=== PATIENT | male | born 1950 | race Caucasian/White ===

== ENCOUNTER 2022-10-31 09:34 | Outpatient (OUT) | payer MEDICARE, SELFPAY ==
[2022-10-31 11:07] LABS: Prostate Specific Antigen Dx 3.96 ng/mL (<=4.00)
== END 2022-10-31 09:35 | disposition home or self-care (01) ==
LOC: LAB 09:39
DX: C61 Malignant neoplasm of prostate (principal)
CPT/HCPCS: 36415; 84153

== ENCOUNTER 2023-09-29 07:24 | Outpatient (OUT) | payer MEDICARE, SELFPAY ==
[2023-09-29 10:53] LABS: Prostate Specific Antigen Dx 3.82 ng/mL (<=4.00)
== END 2023-09-29 07:25 | disposition home or self-care (01) ==
LOC: LAB 07:25
PROVIDERS: PCP Internal Medicine; Visit Provider Urology
DX: C61 Malignant neoplasm of prostate (principal)
CPT/HCPCS: 36415; 84153

== ENCOUNTER 2024-03-09 07:55 | Outpatient (OUT) | payer MEDICARE, SELFPAY ==
[2024-03-09 11:25] LABS: Prostate Specific Antigen Dx <0.13 ng/mL (<=4.00)
== END 2024-03-09 07:56 | disposition home or self-care (01) ==
LOC: LAB 07:58
PROVIDERS: PCP Internal Medicine
DX: C61 Malignant neoplasm of prostate (principal)
CPT/HCPCS: 36415; 84153

== ENCOUNTER 2024-07-05 09:45 | Outpatient (OUT) | payer MEDICARE, SELFPAY ==
--- OUTSIDE RECORDS SUMMARY | 2024-07-05 10:04 | XMS_ITS | CCD ---
Author Organization [facility] CliniSyoh Care Team Providers Care Stock Digger Name Role Phone BRADLEY MILLER Referring Unavailable DHAVAL CHOE Primary Care Unavailable Dhaval Choe DO Primary Care Provider [phone] BRADLEY MILLER Admitting Unavailable BRADLEY MILLER Attending Unavailable DHAVAL CHOE Primary Care Unavailable MISC, DR JENNINGS Admitting Unavailable MISC, DR JENNINGS Attending Unavailable VALONE, DR PUENTES Referring Unavailable VALONE, DR PUENTES Primary Care Unavailable MISC, DR JENNINGS Consulting Unavailable MISC, DR JENNINGS Admitting Unavailable MISC, DR JENNINGS Attending Unavailable VALONE, DR PUENTES Primary Care Unavailable MISC, DR JENNINGS Consulting Unavailable BRADLEY MILLER Referring Unavailable DHAVAL CHOE Primary Care Unavailable JR Dhaval Choe Primary Care Provider MD Bradley Miller Attending Provider DHAVAL CHOE JR. Primary Care UnavailBradley Stern Attending Unavailable Bradley Miller Admitting Unavailable Bradley Miller Attending Unavailable Bradley Miller Admitting Unavailable DHAVAL CHOE JR. Primary Care UnavailJR Dhaval Matthew Primary Care Provider MD [place] Attending Provider MD Bradley Miller Referring Provider JR Dhaval Choe Primary Care Provider MD [place] Attending Provider MD Bradley Miller Referring Provider Bradley Miller Admitting Unavailable Bradley Miller Attending Unavailable Dhaval hCoe Primary Care Unavailable Dhaval Choe Primary Care Unavailable [place] Admitting Unavailable [place] Attending Unavailable [place] Attending Unavailable Bradley Miller Referring Unavailable Dhaval Choe Primary Care Unavailable [place] Admitting Unavailable Dhaval Choe Primary Care Unavailable [place] Admitting Unavailable [place] Attending Unavailable Allergies Allergy Classification Reported Allergen(s) Allergy Type Date of Onset Reaction(s) Facility Shellfish (1 source) Shellfish; Translations: [shellfish] Food Allergy [facility] (1 source) Shellfish Propensity to adverse reactions to drug 5 [facility] (1 source) Shellfish Drug allergy (disorder) 5 [facility] (1 source) Shellfish Drug allergy (disorder) 4 [facility] Medications Current Medications Medication Drug Class(es) Dates Sig (Normalized) Sig (Original) allopurinol 100 mg oral tablet (5 sources) Xanthine Oxidase Inhibitor Start: 11-04-2023 take 100 mg by mouth twice daily Allopurinol Active 100 MG PO Twice daily November 04, 2023 12:00am take 1 tablet by mouth once merlyn y allopurinol (ZYLOPRIM) 100 MG tablet Take 100 mg by mouth daily 0 Suspended aspirin 81 mg chewable tablet (5 sources) Platelet Aggregation Inhibitor, Nonsteroidal Anti-inflammatory Drug Start: 11-04-2023 take 81 mg by mouth once daily Aspirin Active 81 MG PO Daily November 04, 2023 12:00am take 3 tablets by mouth once kaylen ly aspirin 81 MG EC tablet Take 243 mg by mouth daily 0 Suspended atorvastatin 40 mg oral tablet (5 sources) HMG-CoA Reductase Inhibitor Start: 11-04-2023 take 40 mg by mouth once daily Atorvastatin Active 40 MG PO Daily November 04, 2023 12:00am Start: 06-12-2021 atorvastatin ( LIPITOR) 40 MG tablet calcium chloride 0.0014 meq/ ml / potassium chloride 0.004 meq/ml / sodium chloride 0.103 meq/ml / sodium lactate 0.028 meq/ml injectable solution (1 source) Start: 07-18-2021 lactated ringe rs infusion Start: 07-18-2021 lactated ringe rs infusion celecoxib 200 mg oral capsule (5 sources) Nonsteroidal Anti-inflammatory Drug Start: 11-04-2023 take 1 capsule by mouth once daily Celecoxib (Celebrex) 200 mg capsule Active 200 MG PO Daily November 04, 2023 12:00am take 1 capsule by mouth twice da naresh celecoxib (CELEBREX) 200 MG capsule Take 200 mg by mouth 2 times daily 0 Suspended cholecalciferol 0.025 mg oral capsule (5 sources) Vitamin D Start: 11-04-2023 take 25 ug by mouth once daily Cholecalciferol (Vitamin D3) Active 25 MCG PO Daily November 04, 2023 12:00am Cholecalciferol (VITAMIN D) 50 MCG (1999) CAPS capsule Take by mouth 0 Suspended empagliflozin 25 mg oral tablet (4 sources) Sodium-Glucose Cotransporter 2 Inhibitor Start: 11-04-2023 take 1 tablet by mouth once daily Empagliflozin (Jardiance) 25 mg tablet Active 25 MG PO Daily November 04, 2023 12:00am 10 ml lidocaine hydrochloride 10 mg/ml injection (1 source) Antiarrhythmic, Amide Local Anesthetic Start: 07-18-2021 End: 07-18-2021 lidocaine PF 1 % injection 1 mL omeprazole 20 mg delayed release oral capsule (5 sources) Proton Pump Inhibitor Start: 11-04-2023 take 20 mg by mouth once daily Omeprazole Active 20 MG PO Daily November 04, 2023 12:00am take 1 capsule by mouth once kaylen ly omeprazole (PRILOSEC) 20 MG delayed release capsule Take 20 mg by mouth daily 0 Suspended sacubitril 24 mg / valsartan 26 mg oral tablet (4 sources) Angiotensin 2 Receptor Prasanth Start: 11-04-2023 take 1 tablet by mouth twice daily Sacubitril-Valsartan (Entresto) 24-26 mg tablet Active 1 TAB PO Twice daily November 04, 2023 12:00am tamsulosin hydrochloride 0.4 mg oral capsule (1 source) alpha-Adrenergic Prasanth Start: 12-12-2023 take 1 capsule by mouth once daily Tamsulosin (Flomax) 0.4 mg capsule Active 0.4 MG PO Daily December 12, 2023 12:00am Completed/Discontinued Medications Medication Drug Class(es) Dates Sig (Normalized) Sig (Original) ciprofloxacin 500 mg oral tablet (1 source) Quinolone Antimicrobial Start: 06-28-2021 take 1 tablet by mouth twice daily ciprofloxacin (CIPRO) 500 MG tablet Take 500 mg by mouth 2 times daily 0 06/28/2021 Suspended olmesartan medoxomil 40 mg oral tablet (1 source) Angiotensin 2 Receptor Prasanth Start: 06-08-2021 take 1 tablet by mouth once daily olmesartan (BENICAR) 40 MG tablet Take 40 mg by mouth daily 0 06/08/2021 Suspended Problems Problem Classification Problem Date Documented Da te Episodic/Chronic Cancer of prostate (15 sources) Malignant neoplasm of prostate; Translations: [Malignant tumor of prostate] Onset: 05-30-2022 Chronic Results Test Name Value Interpretation Reference Range Facility Automated basophil %Ordered By: [place] on 11-06-2023 Basophils/100 WBC (Bld) 0.7 % Normal . [facility] Comment on above: Performed By: #### B MP, CBC #### [address] Automated basophil countOrde red By: [place] on 11-06-2023 Basophils (Bld) [#/Vol] 0.0 10*3/uL Normal 0.0-0.2 [facility] Comment on above: Result Comment: PERF ORMED BY: [place] [address] PATHOLOGIST RE[employer]IGERATION HOUSEMAN RACHAEL ESQUEDA M.D. Performed By: #### B MP, CBC #### [address] Automated blood monocyte cou ntOrdered By: [place] on 11-06-2023 Monocytes (Bld) [#/Vol] 0.7 10*3/uL Normal 0.0-0.8 [facility] Comment on above: Performed By: #### B MP, CBC #### [address] Automated eosinophil %Ordere d By: [place] on 11-06-2023 Eosinophils/100 WBC (Bld) 2.3 % Normal . [facility] Comment on above: Performed By: #### B MP, CBC #### [address] Automated eosinophil countOr dered By: [place] on 11-06-2023 Eosinophils (Bld) [#/Vol] 0.1 10*3/uL Normal 0.0-0.45 [facility] Comment on above: Performed By: #### B MP, CBC #### [address] Automated monocyte %Ordered By: [place] on 11-06-2023 Monocytes/100 WBC (Bld) 10.8 % Normal . [facility] Comment on above: Performed By: #### B MP, CBC #### [facility] [address] Automated neutrophil %Ordere d By: [place] on 11-06-2023 Neutrophils/100 WBC (Bld) 63.2 % Normal . [facility] Comment on above: Performed By: #### B MP, CBC #### [address] Basic Metabolic Panelon 10-19 GFR/1.73 sq M.predicted MDRD (S/P/Bld) [Vol rate/Area] mL/min/{1.73_m2} Normal [facility] Comment on above: Performed By: #### B MP, CBC #### [address] Calcium [Mass/volume] in Ser um or PlasmaOrdered By: [place] on 11-06-2023 Calcium [Mass/Vol] 8.8 mg/dL Normal 8.6-10.3 [facility] Comment on above: Result Comment: PERF ORMED BY: [place] [address] PATHOLOGIST RE[employer]IGERATION HOUSEMAN RACHAEL ESQUEDA M.D. Performed By: #### B MP, CBC #### [address] Carbon dioxide, total [Moles /volume] in Serum or PlasmaOrdered By: [place] on 11-06-2023 CO2 [Moles/Vol] 27.0 mmol/L Normal 21.0-31.0 [facility] Comment on above: Performed By: #### B MP, CBC #### [facility] [address] [place] [address] Chloride [Moles/volume] in S khanh or PlasmaOrdered By: [place] on 11-06-2023 Chloride [Moles/Vol] 107 mmol/L Normal 98-107 [facility] Comment on above: Performed By: #### B MP, CBC #### [address] Complete Blood Count Auto Di ffon 11-06-2023 Mean Corpuscular HGB Conc 34.1 g/dL Normal 32.5-35.6 [facility] Comment on above: Performed By: #### B MP, CBC #### [address] NRBC% 0.0 /100{WBC} Normal 0-0.5 [facility] Comment on above: Performed By: #### B MP, CBC #### [address] Creatinine [Mass/volume] in Serum or PlasmaOrdered By: [place] on 11-06-2023 Creatinine [Mass/Vol] 1.16 mg/dL Normal 0.70-1.30 [facility] Comment on above: Performed By: #### B MP, CBC #### [address] ECG 12 lead ECGon 11-06-2023 ECG 12 lead ECG [facility] [place] [address] Electrocardiograph Report Signed Patient: Rocky Mcmanus MR#: [id number] : 1950 Acct:[id number] Age/Sex: 73 / M ADM Date: 11/06/23 Loc: PS Room: Type: [facility] Attending Dr: Pretty Key MD Ordering Provider: [place] MD Date of Service: 11/06/23 ECG/ECG 12 lead ECG: surgery 11/18/23 Copies to: Test Reason : Blood Pressure : */* mmHG Vent. Rate : 50 BPM Atrial Rate : 50 BPM P-R Int : 178 ms QRS Dur : 86 ms QT Int : 432 ms P-R-T Axes : 67 59 73 degrees QTcB Int : 393 ms Sinus bradycardia Nonspecific T wave abnormality Abnormal ECG No previous ECGs available Confirmed by LORELEI ALLEN [id number] on 11/06/2023 7:02:40 PM Referred By: Electronically Signed By: KAILEY MOSELEY MD [facility] Transcribed By: MUS Signed By Abhay Moseley MD 11/06/23 190 Normal [facility] Erythrocyte distribution wid th [Ratio] by Automated countOrdered By: [place] on 11-06-2023 Erythrocyte distribution width (RBC) [Ratio] 14.2 % Normal 12.0-14.8 [facility] Comment on above: Performed By: #### B MP, CBC #### [facility] [address] [place] [address] [place] Erythrocytes [#/volume] in B lood by Automated countOrdered By: [place] on 11-06-2023 RBC (Bld) [#/Vol] 4.47 10*6/uL Normal 3.90-5.60 [facility] Comment on above: Performed By: #### B MP, CBC #### [address] Glucose [Mass/volume] in Ser um or PlasmaOrdered By: [place] on 11-06-2023 Glucose [Mass/Vol] 75 mg/dL Normal 70-100 [facility] Comment on above: ADA recommended refe rence rangeRandom Glucose Reference Range is dependent on time and content of last meal. Glucose of more than 200 mg/dL in a nonstressed, ambulatory subject supports the diagnosis of Diabetes Mellitus. Result Comment: [place] om Glucose Reference Range is dependent on time and content of last meal. Glucose of more than 200 mg/dL in a nonstressed, ambulatory subject supports the diagnosis of Diabetes Mellitus. ADA recommended reference range Performed By: #### B MP, CBC #### [address] [place] [address] [place] Hematocrit [Volume Fraction] of Blood by Automated countOrdered By: [place] on 11-06-2023 Hematocrit (Bld) [Volume fraction] 43.4 % Normal 38.8-50.0 [facility] Comment on above: Performed By: #### B MP, CBC #### [address] Hemoglobin [Mass/volume] in BloodOrdered By: Azulleemily Key on 11-06-2023 Hemoglobin (Bld) [Mass/Vol] 14.8 g/dL Normal 13.0-17.0 [facility] Comment on above: Performed By: #### B MP, CBC #### [address] Leukocytes [#/volume] correc harvey for nucleated erythrocytes in Blood by Automated counOrdered By: [place] on 11-06-2023 WBC corrected for nucl RBC Auto (Bld) [#/Vol] 6.5 10*3/uL 4.1-10.5 [facility] Leukocytes [#/volume] in Blo od by Automated countOrdered By: [place] on 11-06-2023 WBC (Bld) [#/Vol] 6.5 10*3/uL Normal 4.1-10.5 [facility] Comment on above: Performed By: #### B MP, CBC #### [facility] [address] [place] [address] [place] Lymphocytes [#/volume] in Bl ood by Automated countOrdered By: Azulleemily Key on 11-06-2023 Lymphocytes (Bld) [#/Vol] 1.5 10*3/uL Normal 1.00-4.8 [facility] Comment on above: Performed By: #### B MP, CBC #### [place] [address] [place] Lymphocytes/100 leukocytes i n Blood by Automated countOrdered By: [place] on 11-06-2023 Lymphocytes/100 WBC (Bld) 23.0 % Normal . [facility] Comment on above: Performed By: #### B MP, CBC #### [facility] [address] [place] [address] MCH [Entitic mass] by Automa harvey countOrdered By: [place] on 11-06-2023 MCH (RBC) [Entitic mass] 33.1 pg Normal 27.5-35.2 [facility] Comment on above: Performed By: #### B MP, CBC #### [facility] [address] [place] [address] MCHC Auto (RBC) [Mass/Vol]Or dered By: [place] on 11-06-2023 MCHC (RBC) [Mass/Vol] 34.1 g/dL 32.5-35.6 [facility] MCV [Entitic volume] by Auto mated countOrdered By: [place] on 11-06-2023 MCV (RBC) [Entitic vol] 97.0 fL Normal 83.5-101 [facility] Comment on above: Performed By: #### B MP, CBC #### [facility] [address] [place] [address] Neutrophils [#/volume] in Bl ood by Automated countOrdered By: [place] on 11-06-2023 Neutrophils (Bld) [#/Vol] 4.1 10*3/uL Normal 1.8-7.7 [facility] Comment on above: Performed By: #### B MP, CBC #### [facility] [address] [place] [address] No Panel InformationOrdered By: [place] on 11-06-2023 Estimated GFR (CKD-EPI) > 60.0 mL/Min [facility] Creatinine Clearance (Chem N/A [facility] Nucleated erythrocytes [Pres ence] in Blood by Automated countOrdered By: [place] on 11-06-2023 Nucleated RBC Auto Ql (Bld) 0.0 /100{WBC} 0-0.5 [facility] Platelet mean volume [Entiti c volume] in Blood by Automated countOrdered By: [place] on 11-06-2023 Platelet mean volume (Bld) [Entitic vol] 7.8 fL Normal 6.6-10.1 [facility] Comment on above: Performed By: #### B MP, CBC #### [facility] [address] Platelets [#/volume] in Bloo d by Automated countOrdered By: Azulleemily Key on 11-06-2023 Platelets (Bld) [#/Vol] 219 10*3/uL Normal 150-450 [facility] Comment on above: Performed By: #### B MP, CBC #### [place] [address] [place] Potassium [Moles/volume] in Serum or PlasmaOrdered By: Azulleena hSahid on 11-06-2023 Potassium [Moles/Vol] 4.3 mmol/L Normal 3.5-5.1 [facility] Comment on above: Performed By: #### B MP, CBC #### [address] Serum or plasma anion gap de terminationOrdered By: Azulleena Shahid on 11-06-2023 Anion gap [Moles/Vol] 9.3 mmol/L Normal 6.0-15.0 [facility] Comment on above: Performed By: #### B MP, CBC #### [place] [address] [place] Sodium [Moles/volume] in Ser um or PlasmaOrdered By: Azulleemily Key on 11-06-2023 Sodium [Moles/Vol] 139 mmol/L Normal 136-145 [facility] Comment on above: Performed By: #### B MP, CBC #### [place] [address] [place] Urea nitrogen [Mass/volume] in Serum or PlasmaOrdered By: Norleena Shahid on 11-06-2023 Urea nitrogen [Mass/Vol] 16 mg/dL Normal 7-25 [facility] Comment on above: Performed By: #### B MP, CBC #### [address] [address] [facility] Discharge Instructionson Discharge Instructions [id number]#1. 00[facility] - AP Resultson 4 Lab - AP Results [id number]# 1.00[facility] - [facility] Results [id number]# 1.00[facility] - AP Resultson 4 Lab - AP Results [id number]# 1.00[facility] Discharge Instructionson Discharge Instructions [id number]# 1.00[facility] Coding Summaryon 08-07-2023 Coding Summary HTMLBase 64 QarlexxeGMq6lEx+PGhl YWQ+BO7FLOWfB82upOXv lR2zU2ZXKZiZXitfXZQX GMyDSxKnpxRnRW8xcTUr ZXJu IC8+ZO9eVGHzWzstlAWq e9O7oFW8W38jwd7cIMut lDN9ESEzYnRtlfori9gr hZt9IVvyKqliLpTu AZZfkA63MKO1iQ99Oh26 lKEnsEWbg4llsJz2FxRh SEWwKWS6dPxjBBawz5Vm UATpB66vhEFnl2T2 IGNvbGxhcHNlOyBlbXB0 yD8bQNomvpsds4oxtseq Eog2ey66oSTzd4Y6sDG3 X2LmhlX7ADOecJCp TlrmnGMKsX3rpbzfe1qm ezqvGyIvWCTfQHa5VCe4 YPYkbCbnKxMjIC65RVS8 DMPruvMlX6IlJURe zVegXrM3r4Y5Zx6FD8XM YqytK3TNZFEEWGcsiSO+ JM02nx34I8FtCdchTfa6 MJIpGUR5uFW3gU5r RIEmDNtnn4A3kUD9X5Rd fkEbxr3ym2xuUKBnANck Y84hyJNgu7L0PMYokVZ8 WWOgfOlrFpFdcW47 Oyc+XNCciKppd8FdOgwg y5pgf8myiXn7GroaZRFa nkOuhRlvNOF0v5FcBy3w KMOxxFC0yDD4zN7j CjMbGiZ9DQibS413NsSh pXYuNchaG48sW6TmvQE+ MEPgOkr3FOQanCxeCO4x L9TqLFUyjhmexRLe kXrnHR9vJMPwwgmnJSRd uV1aKUVuI6t3ZrQpHfR1 XGrxP5KkMKIahtykUi59 kW8jBdIgVnT3LHez O3VbwaC8THWpuHFqJXaj LHD9T54yu0C4XPZqIJTj SRX6uPW1wC1fmXsifctg bGVmdDsgdmVydGlj UYyaRIqnX438MNNuvNhv PkNvZGluZyBEYXRlOiAg MDQvMTgvMjAyNDwvdGQ+ BDZdYYO2nOhnDTTt bPCbQPfzLg0hxYdfcBtp KL1jZNYusgwvUDNvlO6l XBOdnXHhnDkoLY2hBZAi dzsjn912HnAgTEY9 UFNpmKHeF3KndT7gFqDb YIWwGBMwW6KkvGFoQExl N277QPqqRlE4XHAwfkJu Y4DeGDInnNqzSoS0 m1V0Wx0Sh5UdyghbV4Qy mHBiZjOoZgxqKYl5U5Dj PjwvdHI+PW02ZZKdGP56 YUk0NTX7jKciLNfu UJIlY2EjzU1zVoUgVHNk ZGRkOyc+PHRhYmxlIHdp ZHRoPScxMDAlJyBzdHls PJ5eNv3uBBKlGUCx tMhwpZLoBsPjo9mrLWWv HYqxCA1tkMvdE5JeuUU4 ABIbo6b1Dp69I61hE2Qd dXA+JUDihSX2sTN0 mD3fOnWhCzD7ATcsK385 TfNdiFOrPoiue8itm9wc sKa0WlQ3LIZjwkJidSer SIX0x7ZeYo47P43o IHdpZHRoPSIxNSUiIHZh uSkgnh4aeA9vVk0+PGNv mUO0yEK9jV4zPpWsDbB2 PPmxG551AfUzbFHa Rjxib8vpu7ploUt4XmTi BRPsizFarUtiQWC5t6Yp Ja70C5LimZgps2YcGwl0 ea48xLOlb7T0xJH2 C9RhDBYddylycPTqbYwv KB8xARJoqxnoXYHovQ4b XYQxU3v3EuUsMmC5FBer H5GbvlY2SIJpyDMy NNVslPCAcM7dzzmvw7gp ktzbCpKfXZOgQRa0QOv9 KRLwaBjcJeFqZPA0WvR4 XOV8wLLnvS1drVto ehizmC6vHxs+HXB1nLVl uOVMKP5aWuuhlMD+PHRk EOU4uCaqBXvfASWluU9t VQBhY2x3ViLmJyI3 PVjgZ5XisvL0RYRfyNVr UAGmjECPpT0amufgy5yf ogxsTzMxDFQzAXs8AQv4 LWFsaWduOiBsZWZ0 TbB1ACZ5wEWsfT2uaZfy uhciwE0sPgp+QmlydGgg QKZ3TSw4Q5NgPzj0UCOw fGbyHE8wpKTxUEle Yb5geDanoAjlWT4fTKMb jemrd018CmFql8bxCPBl rTJqJYypMEJ7E87fi6M0 BIQeCHRiAVX7nQC8 jB2ocRejxhucsYOvsLnv whVumTphDWckPRgvY669 XSAodAebEgRfHQp9B1Zy Hlw8VYQyzHzmZV5r hYMxYLfeJi9jxAynqEdw SI2oVZAayvxha825ZtGb q9bsHINwhSUtZPdtLUU6 Y24ux6F1HFFqDXOc JKL6lON1pN6poCqkxfhj bGVmdDsgdmVydGljYWwt VSpqT405NFQrpTzxQcKh jSs7C4QjUzu8FEMr dGrzLW6atWJzUIgyPp9y gKngaYsmNT8vQWFaccoc c670BpMjd1vwHUMqjAKg KNjiZJB8O14ct4F2 SLJzIOKrDKP4mJK4aF7l bGlnbjogbGVmdDsgdmVy fIwhNUhaIYlzF548HNBm cDsnPlBhdGllbnQg SOmlJBg8I8EtHyzolEG+ LQ93OCDkZK83dUOyrVCn b6tnbIr1ExAbJRFtSSK9 xRldFWadv5KqYEZr U54jrXInz5Y7XLAseHna mGXaHwIzfPG7zP9fPGmz zevcq1hvsnkuOrcbc3wa cq34iZ99Y27eYMsn ZHRoPSIzMCUiIHZhbGln dq1teC5pFh5+PGNvbCB3 zJV2kM5eXATiIzD5QIwr X282AhFdzOWjIndd k9sjt1tliZk3DyV5HHXd iySlxDpdQQM8v8OlXo81 Z45yTSrfYDOyOBCjLINy PXPeqUsfcs1taJ9q Ii8+KPZczCQ2jTH9oB8h GiZbTvO1TOxtT900BlCr gYSrZltiB80aJ3KgdQG+ LBYdSyu2FHSrzPww JO7cfWMxBVdjQb0kIII5 AgOoCbBjMEdpJ5OiWJJz jfwosakgmFZ5OEUpYZKp bV62Je8rdUveRJNi wDPIiE2srgfud4iwbffb AaQeAFFhBTg3TXi3SVNd xCeuChWlVAX5KhL3JAM0 gHTsgC8mtFzxyfmi tD4wQ0DrZTWvheruZb65 hO0gBnFeCiI3LHivDtd+ TUFHRVJTLCBTVEVQSEVO QLRDU6CNUXmcsTL+ SLNjKWK4eBywQTphHVQf cL1jMJZxJ9b0RgNoDgH6 EFkpD3CrUNQxlzqnRu48 gW8mRkPeAuF1DWrg X7MrjhK7OSOoeMTuHIka FYV1C21qi8R0OIVfLCVi QLG8aVX8hQ4ztDnutnvn bGVmdDsgdmVydGlj XLymYJxtJ778AWSbqJsy UyDmLiC3YwB8ENp1Z1Kn Iol9ETYyuPvxGR4dnIZv JZezOk4gxZqgnPyz XS6bFUSrfujcQGWsaG3a FODkwZFuoHcmMG0zMVYa suvqy160FoUzWVY4ORVr mVHlR2QwcA7zSwEk SMNkSBRlI6JlzPRgSNzl W023ONuzCdE7LEYzixJj P4TcCCMdzWicKiX1l6B8 Th40BRGZTPZjeeld dGQ+HAUyQQV0kBymQEje VUQdaD7mUYKeS8b2RaPc KqT3XTgcO3IiYSAphxzf Bj57xH9aMyYyBqJ2 WDmrV0JreeQ1PUOatVDl HIaxHMI4S02yl4M7KUIj GJZmEQP0rFH5cB3klKbe bjogbGVmdDsgdmVy nGfmUZdoUGzsI234ELCm aFepGn6VQML1T0VgOoh8 LPHkgRafJV7ybIZyDNpq Za6olFnfrEubPD4d WQEwdzudVFLzwJ6eHICk wVZdkRcjJI5uZZSsnvlp v636NqTtTTZ9RMAprITm V3SthD9lVzYpDGIw PIAbN5DsuIXuFAyxI180 DNdwEtO0FTCeloQfH4Ce KZOigSgrUsU7u6R5Ms7C FNjbG7JuW8KuxRtc dGQ+YR05sy69B7JqGqzf Lzc4WTWzBHD0yTK5zD1z NJVgDCxhj9U2lWV8C8Jm qoTzto6wn6ztNWBt JOhvA46zrNVmr8N6CEHs wLH4OKIvaRkeApHiqV80 Oyc+RYLbtCjex8TuLsxx x4avz1rhdYq8KwBs QGBlhfYrfWqbWRY0j5Tg Lz30G49rRHfxCPHpXDQj JWSnSOBkwWjhpz1omL7e Ii8+WHUubAY3vHD6 iU3uYqFmQuY8FZctU200 OpWiiEWnPrcvs5tga1on vSq2NpFwGVMqdsPzcMel YBH1q9AlCj87J5Eb xWojo3JmEqf6jp72qSAp u3U3uGF5U8MoNXJdkgum bSKclKvkGR3qOORhklkq KHPvmC3rXJSwB3c6 UtFhHwB9ZJhbZ6TamkU3 BSFhrBLfTDCktCTTwB0q eqjde8yvpyjkUzYcSJCs LQj6UNt1DCKrdSos UkZaZDW3GpW8LPQ1mZUc nR9kuIewvqnclS3kZmx+ PRf7p1usoJUiNF3vhIG4 BW85JX29aOAoa2T5 nXO9Y7ClDTVgafwskqek pCX8MFVnVFJbpZ00Vc2k oAlwKz2cJRLoNQY6UOPs vVCtN4EazN6aCmPq CHDwGFWbT2GbrSWnOMam N852CPurQoE4SRQwnbEd F5SyMEUxzCmuCkX6u6T1 Jf6JFX21CW41GR00 bBUaa1U7uQI9C5AtAQMy rbuketlwiZJ8JLPxWRYl dU51Gv4obLubEl0kBEGy BOF1PPDklJFgA8Xv hB5vSjDaCHElCTXiU2Oh oHXwPZndG631BIztGfQ1 WYZclsAfL4BoKMHgmLdz JwJ7r6W5Ae0SQt34 JE44UQ34rPLdv9H1jVV7 I9XzTJYfbymyjvqyyTQ3 AIUvPBWktW35Er0kwDte Ap2pPZMxXKZ4HTGk gHLoR1AqoJ5mNrHcZUZx RAPaK4QhvDRgDSflT989 GGoxJiQ2ECSsqlTyC5Em IRTqyAcfYkP9u8D8 Xd8OKWwsmtq8Y0IxOhkm dHI+GP30VXJgYD47yTSz wKYfm4hbvUg0VoJsDULg LGS2bOywPXmap8Jb ZXI (more content not included)... [facility] - [facility] - AP Results [id number]# 1.00[facility]IFF [facility] Operative Report - Surgeon/P hysicianon 08-05-2023 Operative Report - Surgeon/Physician [id number]#1. 00[facility] Operative Report - Surgeon/Physician [id number]#1. 00[facility] Provider Orderson 08-05-2023 Provider Orders [id number]#1. 00[facility] Anesthesia Noteon 08-01-2023 Anesthesia Note [id number]# 1.00[facility] Consent Formson 08-01-2023 Consent Forms [id number]#1. 00[facility] PostAnesthesia Noteon 2023 PostAnesthesia Note [id number]# 1.00[facility] Inpatient Patient Summaryon 07-31-2023 Inpatient [place] [address] Patient Discharge Instructions Name: ROCKY MCMANUS : 1950 Patient Address: [address] [place] [address] Primary Care Provider: Name: DHAVAL CHOE JR. After you are discharged if you find you have any questions, please, call [phone] ext [phone] to speak to a nurse. Discharge Diagnosis: Prescription Information: If you have been given a prescription for narcotics, seek immediate medical attention if you have any difficulty breathing or any sudden status changes such as confusion and sleepiness. If you or anyone you know is experiencing suicidal thoughts, mental health, alcohol and/or drug addiction problems; contact the [facility] 11/11 Crisis Hotline -Text 4HLKK zn [id number]. If you received any narcotics, sedation, or any other medication that causes drowsiness for the next 24 hours, unless otherwise directed: ? Do not drive a car. ? Do not operate machinery such as power tools, lawn mowers, drills, sewing machines, or stoves ? Avoid alcoholic beverages and drugs for allergies, nerves, or sleep ? Do not make important personal or business decisions or sign any legal documents [facility] would like to thank you for allowing us to assist you with your healthcare needs. The following includes patient education materials and information regarding your injury/illness. ROCKY MCMANUS has been given the following list of follow-up instructions, prescriptions, and patient education materials: Follow-up Instructions Medications During the course of your visit, your medication list was updated with the most current information. The details of those changes are reflected below: Medications to Continue That Have Not Changed Other Medications allopurinol (allopurinol 100 mg oral tablet) 1 tab(s) Oral (given by mouth) 2 times a day (scheduled). aspirin (aspirin 81 mg oral delayed release tablet) 1 tab(s) Oral (given by mouth) every day. atorvastatin (atorvastatin 40 mg oral tablet) 1 tab(s) Oral (given by mouth) every day. celecoxib (celecoxib 200 mg oral capsule) 1 cap(s) Oral (given by mouth) every day. ciprofloxacin (ciprofloxacin 500 mg oral tablet) 1 tab(s) Oral (given by mouth) every day. for use the day before, the day of, and the day after procedure. empagliflozin (Jardiance 25 mg oral tablet) 0.5 tab(s) Oral (given by mouth) every day. fluticasone nasal (Flonase Allergy Relief 50 mcg/inh nasal spray) 1 puff(s) Nostril-Both 2 times a day (scheduled) as needed allergy symptoms. omeprazole (omeprazole 20 mg oral delayed release capsule) 1 cap(s) Oral (given by mouth) every day. sacubitril-valsartan (Entresto 49 mg-51 mg oral tablet) 1 tab(s) Oral (given by mouth) 2 times a day (scheduled). It is important to always keep an active list of medications available so that you can share with other providers and manage your medications appropriately. As an additional courtesy, we are also providing you with your final active medications list that you can keep with you. allopurinol (allopurinol 100 mg oral tablet) 1 tab(s) Oral (given by mouth) 2 times a day (scheduled). aspirin (aspirin 81 mg oral delayed release tablet) 1 tab(s) Oral (given by mouth) every day. atorvastatin (atorvastatin 40 mg oral tablet) 1 tab(s) Oral (given by mouth) every day. celecoxib (celecoxib 200 mg oral capsule) 1 cap(s) Oral (given by mouth) every day. ciprofloxacin (ciprofloxacin 500 mg oral tablet) 1 tab(s) Oral (given by mouth) every day. for use the day before, the day of, and the day after procedure. empagliflozin (Jardiance 25 mg oral tablet) 0.5 tab(s) Oral (given by mouth) every day. fluticasone nasal (Flonase Allergy Relief 50 mcg/inh nasal spray) 1 puff(s) Nostril-Both 2 times a day (scheduled) as needed allergy symptoms. omeprazole (omeprazole 20 mg oral delayed release capsule) 1 cap(s) Oral (given by mouth) every day. sacubitril-valsartan (Entresto 49 mg-51 mg oral tablet) 1 tab(s) Oral (given by mouth) 2 times a day (scheduled). Take only the medications listed above. Contact your doctor prior to taking any medications not on this list. Diet & Activity Patient Activity Level: Patient Diet: Patient Activity Restrictions: Comment: Patient education materials, if any, will display below Viruses or Bacteria What?s got you sick? Antibiotics only treat bacterial infections. Viral illnesses cannot be treated with antibiotics. When an antibiotic is not prescribed, ask your healthcare professional for tips on how to relieve symptoms and feel better. Usual Cause Illness Viruses Bacteria Antibiotic Needed Cold/Runny Nose NO Bronchitis/Chest Cold (in otherwise healthy children and adults) NO Whooping Cough Yes Flu NO Strep Throat Yes Sore Throat (except strep) NO Fluid in the middle ear (otitis (more content not included)... [facility] 07-31-2023 L Specimen: [id number] Received: 08/01/23 Status: [facility] Num: [id number] Spec Type: Surgical Subm Dr: Bradley Miller MD Tissues: A Prostate - Needle Biopsy (RIGHT BASE LATERAL PROSTATE) B Prostate - Needle Biopsy (RIGHT BAS MEDIAL PROSTATE) C Prostate - Needle Biopsy (RIGHT MID LATERAL PROSTATE) D Prostate - Needle Biopsy (RIGHT MID MEDIAL PROSTATE) E Prostate - Needle Biopsy (RIGHT APEX LATERAL PROSTATE) F Prostate - Needle Biopsy (RIGHT APEX MEDIAL PROSTATE) G Prostate - Needle Biopsy (LEFT BASE LATERAL PROSTATE) H Prostate - Needle Biopsy (LEFT BASE MEDIAL PROSTATE) I Prostate - Needle Biopsy (LEFT MID LATERAL PROSTATE) J Prostate - Needle Biopsy (LEFT MID MEDIAL PROSTATE) K Prostate - Needle Biopsy (LEFT APEX LATERAL PROSTATE) L Prostate - Needle Biopsy (LEFT APEX MEDIAL PROSTATE) M Prostate - Needle Biopsy (AREA OF INTREST PROSTATE BX) Procedures: HE/26, Gross/Micro L4/13, PIN Cocktail/6 Age/ Patient Sex Location Account Attending Physician Rocky Mcmanus 73/M [facility] [id number] Bradley Miller MD SPEC NUM: [id number] RECD: 08/01/23 STATUS: [facility] [place] NUM: [id number] IRIS: 07/31/[address] [facility] [address]: Bradley Miller MD ENTERED: 08/01/23 [facility] DR: Tara Tam SPEC TYPE: Surgical DEPT: [facility] [place] ORDERED: HE/26, Gross/Micro L4/13, PIN Cocktail/6 ORDERED: HE/26, Gross/Micro L4/13, PIN Cocktail/6, USS/20 Supplemental Report Addendum 1 Entered: 08/20/23 Please see attached risk assessment report. Addendum Signed (signature on file) Pako Lentz MD 08/20/23 1547 Specimen: [id number] Received: 08/01/23 Status: [facility] [place] Num: [id number] Spec Type: Surgical Subm Dr: Bradley Miller MD Tissues: A Prostate - Needle Biopsy (RIGHT BASE LATERAL PROSTATE) B Prostate - Needle Biopsy (RIGHT BAS MEDIAL PROSTATE) C Prostate - Needle Biopsy (RIGHT MID LATERAL PROSTATE) D Prostate - Needle Biopsy (RIGHT MID MEDIAL PROSTATE) E Prostate - Needle Biopsy (RIGHT APEX LATERAL PROSTATE) F Prostate - Needle Biopsy (RIGHT APEX MEDIAL PROSTATE) G Prostate - Needle Biopsy (LEFT BASE LATERAL PROSTATE) H Prostate - Needle Biopsy (LEFT BASE MEDIAL PROSTATE) I Prostate - Needle Biopsy (LEFT MID LATERAL PROSTATE) J Prostate - Needle Biopsy (LEFT MID MEDIAL PROSTATE) K Prostate - Needle Biopsy (LEFT APEX LATERAL PROSTATE) L Prostate - Needle Biopsy (LEFT APEX MEDIAL PROSTATE) M Prostate - Needle Biopsy (AREA OF INTREST PROSTATE BX) Procedures: HE/, Gross/Micro L4/13, PIN Cocktail/6 Patient: Rocky Mcmanus [id number] (Continued) Specimen: [id number] Received: 08/01/23 (Continued) Signed (signature on file) Pako Lentz MD 08/06/23 1706 Specimen: [id number] Received: 08/01/23 Status: [facility] Num: [id number] Spec Type: Surgical Subm Dr: Bradley Miller MD Tissues: A Prostate - Needle Biopsy (RIGHT BASE LATERAL PROSTATE) B Prostate - Needle Biopsy (RIGHT BAS MEDIAL PROSTATE) C Prostate - Needle Biopsy (RIGHT MID LATERAL PROSTATE) D Prostate - Needle Biopsy (RIGHT MID MEDIAL PROSTATE) E Prostate - Needle Biopsy (RIGHT APEX LATERAL PROSTATE) F Prostate - Needle Biopsy (RIGHT APEX MEDIAL PROSTATE) G Prostate - Needle Biopsy (LEFT BASE LATERAL PROSTATE) H Prostate - Needle Biopsy (LEFT BASE MEDIAL PROSTATE) I Prostate - Needle Biopsy (LEFT MID LATERAL PROSTATE) J Prostate - Needle Biopsy (LEFT MID MEDIAL PROSTATE) K Prostate - Needle Biopsy (LEFT APEX LATERAL PROSTATE) L Prostate - Needle Biopsy (LEFT APEX MEDIAL PROSTATE) M Prostate - Needle Biopsy (AREA OF INTREST PROSTATE BX) Procedures: , Gross/Micro , PIN Cocktail/6 Patient: Rocky Mcmanus [id number] (Continued) Specimen: [id number] Received: 08/01/23-123 (Continued) Pathological Diagnosis Prostate adenocarcinoma, Kaci score 3+4=7, involving 4 out of the 13 biopsies (overall 7% involvement), as follows: A. Prostate, , Biopsy: Benign Prostate Tissue. B. Prostate, , Biopsy: Prostate Adenocarcinoma. Kaci Socre: 3+4=7 (Pattern 4: 10%) Tumor Involves 20% Of The Biopsy Volume. ?Confirmed with PIN immunostain. C. Prostate, , Biopsy: Benign Prostate Tissue. D. Prostate, , Bi (more content not included)... Normal [facility] MAGR Intraoperative Recordon 07-31-2023 MAGR Intraoperative Record MAGR Intra-Op Record Summary Primary Physician: Bradley Miller MD Finalized Date/Time: 07/31/23 12:34:22 Pt. Name: ROCKY MCMANUS /Sex: 1950 MALE Med Rec #: [id number] Physician: Bradley Miller MD Financial #: [id number] Pt. Type: D Room/Bed: / Admit/Disch: 07/31/23 08:25:45 - Institution: Case Times MAGR Entry 1 Patient In Room Time 07/31/23 11:33:00 Out Room Time 07/31/23 11:55:00 Anesthesia Start Time 07/31/23 11:32:00 Stop Time 07/31/23 11:57:00 Surgery Start Time 07/31/23 11:45:00 Stop Time 07/31/23 11:50:00 Last Modified By: Dana Mejias RN 07/31/23 12:17:00 Case Attendance MAGR Entry 1 Entry 2 Entry 3 Case Attendee Bradley Miller MD, Robert M MD Kokinda, Diane RN Role Performed Surgeon - Primary Anesthesiologist of Porter Sample Case Record Time In 07/31/23 11:43:00 07/31/23 11:33:00 07/31/23 11:33:00 Time Out 07/31/23 11:50:00 07/31/23 11:55:00 07/31/23 11:55:00 Procedure Biopsy Prostate Biopsy Prostate Biopsy Prostate Last Modified By: Dana Mejias RN, Diane RN Kokinda, Diane RN 07/31/23 12:04:37 07/31/23 12:04:37 07/31/23 12:04:37 Entry 4 Entry 5 Case Attendee Yoly Toure CAR PINCHER Janki Howard CAR PINCHER Role Performed Scrub Personnel Liquor Rectifier Time In 07/31/23 11:33:00 07/31/23 11:33:00 Time Out 07/31/23 11:55:00 07/31/23 11:55:00 Procedure Biopsy Prostate Biopsy Prostate Last Modified By: Dana Mejias RN, Diane RN 07/31/23 12:04:37 07/31/23 12:04:37 General Comments: HEBERT GONSALES REP Surgical Procedures MAGR Pre-Care Text: A.20 Verifies operative procedure, surgical site, and laterality Im.150 Develops individualized plan of care Entry 1 Procedure Biopsy Prostate Primary Procedure Yes Primary Surgeon Bradley Miller MD Surgeon Comment FUSION PROSTATE BIOPSY Start 07/31/23 11:45:00 Stop 07/31/23 11:50:00 Anesthesia Type MAC Surgical Service Urology Wound Class Clean-Contaminated Technique Details Closure Technique N/A Entire procedure No was performed via laparoscope or robotic assistance Last Modified By: Dana Mejias RN 07/31/23 12:04:47 Post-Care Text: O.730 The patient's care is consistent with the individualized perioperative plan of care General Case Data MAGR Pre-Care Text: A.350.1 Classifies surgical wound Entry 1 Case Information OR MAGR OR 05 Case Level Level 3 Wound Class Clean-Contaminated Specialty Urology ASA Class 2 Diagnosis Preop Diagnosis PROSTATE CANCER Postop Same As Preop Yes Postop Diagnosis PROSTATE CANCER Blunt or No Is the procedure No penetrating injury considered occured prior to Emergent/Urgent? the start of the procedure: Last Modified By: Dana Mejias RN 07/31/23 12:05:03 Post-Care Text: O.760 Patient receives consistent and comparable care regardless of the setting Time Out MAGR Entry 1 Procedure(s) Biopsy Prostate Time Out Checklist Verifications Team Introductions Yes Confirmed Identity, Yes Completed Procedure, Incision Site, and Consent(s) Presence of Yes Site Verification, Yes Necessary Site Marking, Site Procedural Marking Equipment, Devices, Alternative, and/or and Implants Site Marking Verified Exception in Accordance with Facility Policy Anesthesia Review Antibiotic Received Yes All Anesthesia Yes Within an Concerns Addressed Appropriate Time Interval Prior to Surgical Incision Surgeon Review Anticipated Blood Yes Expected Case Yes Loss Risk Addressed Duration Addressed Critical and Yes Non-Routine Steps to be Performed Addressed Nurse Review Equipment Yes Fire Risk Yes Checks/Concerns Assessment Addressed Completed and Interventions Performed Diagnostic and Yes Sterilization No Radiological Test Concerns Addressed Results Displayed are Appropriate and Labeled Other Concerns Yes Addressed Time Out Bradley Miller MD, Time Out Time 07/31/23 11:44:00 Participants Max De Santiago MD, Dana Mejias RN, Yoly Toure CAR PINCHER, Janki Howard CAR PINCHER Last Modified By: Dana Mejias RN 07/31/23 12:06:13 Patient Positioning MAGR Pre-Care Text: A.280 Identifies baseline musculoskeletal status Im.40 Positions the patient Im.80 Applies safety devices Entry 1 Procedure Biopsy Prostate Body Position Lateral Left Arm Position Extended on padded arm Right Arm Position Resting at Side board Left Leg Position Extended Right Leg Position Extended Feet Uncrossed? Yes Press Points Checked Yes Positioning Device Pillow, Safety Strap Outcome Met (O.80) Yes Last Modified By: Dana Mejias RN 07/31/23 12:32:34 Post-Care Text: E.290 Evaluates musculoskeletal status O.80 Patient is free from signs and symptoms of injury related to positioning General Comments: pillow between legs Cultures and Specimens MAGR Pre-Care Text: A.350 Assesses susceptibility for infection A.10 Confirms patient identity Im.320 Manages (more content not included)... [facility] Phase II Record Summary Primary Physician: Bradley Miller MD Finalized Date/Time: 07/31/23 12:57:05 Pt. Name: ROCKY MCMANUS/Sex: 1950 MALE Med Rec #: [id number] Physician: Bradley Miller MD Financial #: [id number] Pt. Type: D Room/Bed: / Admit/Disch: 07/31/23 08:25:45 - Institution: Phase II Case Times MAGR Pre-Care Text: Patient is free from s/s of injury. Patient remains free from compromised physical state related to surgery or anesthesia. Patient comfort maintained. Patient/family verbalize understanding of discharge instructions. Entry 1 In PACU II 07/31/23 11:57:00 Discharge from PACU 07/31/23 12:48:00 II Last Modified By: Zayra Chavez RN 07/31/23 12:56:56 Post-Care Text: The patient remains free from s/s of injury. Patient's vital signs stable, circulation maintained, return to preop mental and physical status, opsite/dressing intact, minimal or absent nausea and vomiting, tolerates po intake. Patient verbalizes adequate pain control. Patient/family express understanding of discharge instructions. Finalized By: Zayra Chavez RN Document Signatures Signed By: Zayra Chavez RN 07/31/23 12:57 [facility] MAGR Preoperative Record MAGR Pre-Op Rec ord Summary Primary Physician: Bradley Miller MD Finalized Date/Time: 07/31/23 12:57:39 Pt. Name: ROCKY MCMANUS /Sex: 1950 MALE Med Rec #: [id number] Physician: Bradley Miller MD Financial #: [id number] Pt. Type: D Room/Bed: / Admit/Disch: 07/31/23 08:25:45 - Institution: Pre-Op Case Times MAGR Pre-Care Text: Patient will be optimally prepared for surgery. Patient is free from s/s of injury. Provide information to patient/family related to plan of care. Verify patient allergies. Confirm identity and verify consent before the operative or invasive procedure. Entry 1 Patient Arrival Time 07/31/23 08:34:00 Preop Departure 07/31/23 11:30:00 Last Modified By: Zayra Chavez RN 07/31/23 12:57:36 Post-Care Text: Patient is prepared mentally and physically and is ready for surgery. The patient remains free from s/s of injury. Patient/family express understanding of plan of care and participate in decisions affecting his or her perioperrative plan of care. Allergies documented appropriately. Patient identifiers and consent correct. General Comments: Patient arrives to [facility] ambulatory. Denies chest pain, cough, cold, COVID like symptoms. Denies diabetes, pacer/defib, sleep apnea. Patient verbalizes understanding of post op orders and instructions. Finalized By: Zayra Chavez RN Document Signatures Signed By: Zayra Chavez RN 07/31/23 12:57 [facility] Patient Handouton 07-31-2023 Patient Handout [facility] Progress Note - Nurseon 04 Progress Note - Nurse Spoke with pt and informed him that he needs to be here at 0830 and NPO after MN, he verbalizes understanding. [Electronically Signed on: 07/30/2023 11:54 EDT] Moises Atkins RN [Verified on: 07/30/2023 11:54 EDT] Moises Atkins RN [facility] Coding Summaryon 07-14-2023 Coding Summary HTMLBase 64 UahlzsgnCTn2xBm+PGhl YWQ+YC8YIUKlU01ilNNs jT4tK6JAECwTVrifTEFE QZjMFhLaioKeAE5srNFg ZXJu IC8+AN3cQPBsEdupzUFl c2C5vBO0Y39bxh8vZYtg bSE6VGAxWcGqqsepz9eo gHc7CJmaBdsaDpYi PDSvxL02OIP7sS09Xk58 uOYzdAQaz8zsvVj6SeSc SYGeRJX1yAklAEcyu2Vd MTAnA63yzTAoa6Y3 IGNvbGxhcHNlOyBlbXB0 yE0kHWefypfei1bimolj Ggk6vw15sPOzo0H2yPI4 Z7QdpgG6FXZmkTJw BpehcJJGdK4lywmpv5ss swjdIeBgCOQwNZn9ENc2 CWXrwNkiRsYdHF46CTU6 SWQineDzS3ZtMVKe tExfNnN7m8U1Qm2KD4TS CblkI3LHIZOAOZpckMX+ TQ42ur02O9XpPaurSvw3 KHAxREJ3fFM8dX4t TPFaAYpyy9Y8qWR1Q1Ua nuTmaw5tq6qvWKCbSUoc Q78vfYFkv8J7KSSphPR7 BNAdtRcrWoXqeE45 Oyc+QMIiyVmoq0UpMqhw n0ybt1tkeJb2HqrnOCAk ukBxvZknXIK9a2IfRg3v GKGbtSD2nJY8lO9z YqDfGiC9PHirD337MuBa hBCpBtdwZ51xI9ViaWB+ HSTdIzj3WAPaxYdwUZ9r H4KcIYCbvcykfGRw tRuzDX7yTZUbfafwQCZv bC6rQDXyN4w2OgRwAsE8 TCyqG5BuFPEcvuhsMf42 tC6oRgGdKvO2PYzm C3DbqrD9SKLcrDUyZDaj GYL1U87vt7H3BGUhRTFw RKA4yPC4lB7wrNiarsvt bGVmdDsgdmVydGlj VVtjOTelE696OLOpiJpd PkNvZGluZyBEYXRlOiAg MDMvMjUvMjAyNDwvdGQ+ LNTmCVW8kVpyLIZu zOOnGQwnLn4urLjajIkn BZ5yQMFldnihRZMqeP4s VBQbmJKvgJwiTD9lBMBi gaaza789ZmLmSWD9 DTSnqVTkA0TfwS8wUwIb SMAkWPZoY0QwhSZcEHce W624ISwzHsZ8YEWmttSo R0OgLYAcgYfxKeW7 l7J3As3Gi1WpechnC2Qi kJUnVjUuIuveIVz5W1Ix PjwvdHI+BL85HQEyJT02 XGm6PZC2fFqzGRbp YPWrO8DsiX7nSlGmSUIk ZGRkOyc+PHRhYmxlIHdp ZHRoPScxMDAlJyBzdHls ML1dTg6aTITjTMXy oJhgkFNvArZnr5csWWUw CMjtGY8jePmoN7OmaUQ2 TRWiw9r2Uj74Y81kK6Ba dXA+FEVhfFK7dMI4 fC7kQvKoNeU5MXtxU989 UsEclLGvJatqy5mni5nh pBt7SbZ9TBJuvaCnmZwm HTA4q9JwDb73D02v IHdpZHRoPSIxNSUiIHZh lYscuw6tdW1xUx1+PGNv lAB0aYT7xY9qGrVxWpV2 VZbnC260TcJxjSGq Dbfqy1mzp6bgnDo9KcOs FZFtejClyGbbHWM2j6Tv Ca66I8EncBazh2DhScy7 hd97iJZlj5W2cTC3 Q6UsCKUfpfbprGFhvJyh DO2sYTUodhmmTQKsnD4j BVOfJ0c7BaBpUwQ8OOvx X3UqqcA8TIHxbNAb XWHdpDWMxO7wnlprm9lz dienKnQtAPSfYTb6EKh8 KLPvgUjcUbIoODN3QsY1 YRJ9eBNrgL5uzMng blfxaO7gWxn+UHF7rFIt lQPJOB1qAfcxhZG+PHRk MOJ8fRltPRklLKDmpY8e VHIaC9s7LlMuErB8 GYdmY7ZmgcX3ICWmzWZw GQXbtDWEdU1efdvoc8yk yqadDgXrILFlSZh9EMr2 LWFsaWduOiBsZWZ0 PoU6JIX6nJJpdS8chQwm efuysT9qJjj+QmlydGgg VUM5OUg7E0SaEbl8EENe nMqvXN9kuIOmQKcc Mb0hmKwqkOcbEW6wWAXr itijp064FvFev9ndNWSx gBNfBNgtQCG8P01hc5D0 JZCyNONqWKB2fGR9 eS0ggCfkgaeoiIEsoSvz hoStaUuaFXtkLHjmS757 YGPjxVfvHwPrIWw7U2Br Geg6XNYvjYalFB8q ePSjHNjmYs2hzJxjuRni BS7qHFHuzwaof254OmXh w6feYDZdwGJjSQlzJTM4 I72be2C0BCRwZGBn JXQ2nKH3aG8bzAhscckh bGVmdDsgdmVydGljYWwt RUftQ712THGyuGvnSoMv kGs2U6VqBhl1FWKn cUwrWC2deBAqJVvvYl9y jQzvfTqqCC6rBRSelina z772JtDaj2dgELIijRGq OBkpMHN6S22qk2O3 RVDgUQNdZRV2xTV2gV6k bGlnbjogbGVmdDsgdmVy cHuwOSfwETuqB486MTEw cDsnPlBhdGllbnQg GKrnQFs7K0CiQrdjiON+ HM95UGBlNX89dTTwwYCz p4ljlWi7XuVgLSPbYHL3 pMfxEPkze3RbWLFw R69raHGej2Q8GWWhyTmw gFFfTnOuxEH5kA4bTCjp gpwlt0tqwdioKimnr1ht fr20oV62I16xITka ZHRoPSIzMCUiIHZhbGln rg7kiM2gTd9+PGNvbCB3 oCX9xU7jFAVyMgZ4BYbs K211DhGefRIiWfbg s4xkn9zekTs6HaP1EIKz axLtfYrsYJP7t1NfPx24 Q56hUFcmBIInYFRjYSOx NPNeuTtvhk7fxW8f Ii8+EWDyeNP1uSJ3gC7u FtYyXxG3IGgiX700MlIm zXMfZmodB45lS6XstHN+ NWNiMzh3OUPxoRei PZ3uaIFdJLmgTz4jYFG8 LeFrAcBrNRunL7HfAPEl zbjpxlzbkVY7DNLxFEJh tL89Fr3gtKwiPXHt qBWPoQ6rpaejt4bcdqtz UzCfZWZcGJo9BBd2KBNu mCddDaYlXRO1MpD2DQG0 hQVjvZ8jcOyuuiwg nP4fJ7SwIEOpkpegNu18 kV3yGxQyBjA4CXtwAlp+ TUFHRVJTLCBTVEVQSEVO FQWVF9ATSKmroVE+ NQHqTHM7cIakADqvABPr tT9hBFBfJ1f0IgMvLcO2 RLniK2TuBSGkizoiFg08 kE0sQlDeFqV8PHry F8NlzkY1FGQtuKKoUOph XRR6P63yl6Y1GGWbAZKy GZR1lTZ9fG5jiAidzgim bGVmdDsgdmVydGlj VDwbBEclK013BIWmqAoq XsXbFdE8KmQ2NOf3S4Hg Arg8CNKpaTtgBC2sjFHy NZkuVp1mrYrkuYwz SL5lEPAtbytzRNGmrD4k PHVkhDTiwOtfSW0uVMDm feaph389ZnEuGIT4SSHf iTPjE4CrsJ8iYdUj BHSmGWRiS1PazCAqPXwe F659BElkAfO1NXVhcxXf U9NuZFHnnFeoIgY7u1V7 Ao53NDVBQSXeonmz dGQ+LSIkIXK3xHcgNLkr WNHmrP8sPAAwV2n0AmYe QmT8FAtcA9TuCZFcmlrl Nz78zC3wGuLrLhM6 YLclZ3WqpvI4IYHdpTMy IQbtEDG9P88an8M2OEBe NBNbQXF2eBO4jW0tzBsv bjogbGVmdDsgdmVy yYmnLDeaMFpkJ154GSEk rIukDf9ZAKG6S8KmRuu7 FZWswWjeMJ1crTZwVVlq Jm1tuXtwjEiyBC3o EDTsoudzIFDypT7tYCPr aVRibWnrMW6jJGXrsitd o888DwOfRFP2YXNsvEEf A3GilT8uQfKfCRYe MVMxX7ExfSNgOKykD031 ZIprIfE8PRHocwXeH7Ov HNXgmEsgEeI2a9K5Je1H UDwvdGQ+VG11fn26 F0NdXzaoQxi3CVOyQXQ3 oCH7oN2iKERoECcdp8O6 gVM4L9FgqsEfdo2wh8yp MBRdDIcmI97ojROk h6Y3NMDtkHP3SRRvrCpk RtQcpY60Vnu+PGNvbGdy o7XqJufeh2zjh2yceKb4 IjMwJSIgdmFsaWdu QKD1t3PjNt51C40eKKpj ZHRoPSIzMCUiIHZhbGln mk3aoB0aIn5+PGNvbCB3 mQQ2cA4yZzVfSoN5 QZoiP718EvWflWDpKttm p8ran2klhNx6LqMsKATo fwOnxOsxQAN8z4PcKp59 X1EbsShei5WoQou7 hc69iFTkd6E8rDE6T6Rc QRBqetquhCNsgAlvAK7d CKIrtilwSPBkiA1aODKt N4u0TtOzRvF3YFsg C7OtplK6QHTwyNByTTOl cOUExG3imhirk1bqmqbs OvScYAJxFOt3JRa2OKEo rOkwTdNuGON7VjH6 JFP3cCBukZ3weAsrrbfd oH9bSdm+WMg2v3hopZSe IK7zpMX5RN36YT57xLCb x3F9tHM9E5IzZRKo gznnzrwnuUK5VCKxMBWw fN70Bq7xcOiqAv5lUXZk RRV2AIDcvKPyB8ZdaV3p CmQxSZNmDJDkX0Mi xGMgBLuaX412CFtcRrF3 ESVdqnVlL0CmUQLliKjn XyC5d8E1Ae2KNJ56KE01 HU58xYQwd4D9aEB5 A2WvXGOampqdoevvaKJ9 DQKvYLBzwC80Xz5ixIbj Wa4ePFEuNKK0ERKreAZo F5OhgS7rJqJzJHNn NMWgE8DdhZOrHWkaE401 OBadPjK9XCYyrkJlF8Rn LBTqhLprJrU6r6Z7Hc6Y Mb85AH71GN89lDPx n4B0wVF3C5BcEGJlgxtu diprlDU4GUDyKPChzL98 Kp7tdDfnXd4yVCOdGAN1 JVTdrEXgV5NyaA2f CrFyXRIxVUBdH8JtfQUe HYxzV419GSmhAlV8CADf kxSyK7ErSEIceSsdQlK2 x6V5Kw2IAAgzjdj5 P8NxYegvqRT+TA80HAUk XM79fGYooWGkw3lnrDe8 IoTaOHCyQUL7tKevRYbb r4RyKLSfL97lsRLd c2U (more content not included)... Normal [facility] Progress Note - Nurseon 06-20 Progress Note - Nurse PAT chart for 07-31-2023 surgery reviewed by anesthesiologist Dr Shaw on 07-10-2023- patient ok/ no orders received. [Electronically Signed on: 07/10/2023 13:31 EDT] Sabrina Clark RN [Verified on: 07/10/2023 13:31 EDT] Sabrina Clark RN [facility] .Auto Diff 1on 07-09-2023 Auto [place] % 10 % Normal 05-02 [facility] Comment on above: Performed By: #### 7 [id number], [id number], [id number] ####[facility] (DEFAULT)[address] [place] [address] Baso Abs# 0.1 x10 Normal 0.0-0.2 [facility] Comment on above: Performed By: #### 7 [id number], [id number], [id number] ####[facility] (DEFAULT)[address] [place] [address] Basophils/100 WBC (Bld) 0.8 % Normal 0.2-2.0 [facility] Comment on above: Performed By: #### 7 [id number], [id number], [id number] ####[facility] (DEFAULT)[address] [place] [address] Eos Abs# 0.3 x10 Normal 0.0-0.4 [facility] Comment on above: Performed By: #### 7 [id number], [id number], [id number] ####[facility] (DEFAULT)[address] [place] [address]4789 Eosinophils/100 WBC (Bld) 4.5 % High 0.9-4.0 [facility] Comment on above: Performed By: #### 7 [id number], [id number], [id number] ####[facility] (DEFAULT)[address] [place] [address] Lymph Abs# 1.2 x10 Low 1.3-2.9 [facility] Comment on above: Performed By: #### 7 [id number], [id number], [id number] ####[facility] (DEFAULT)[address] [place] [address] 40969 Lymphocytes/100 WBC (Bld) 16 % Normal 14-48 [facility] Comment on above: Performed By: #### 7 [id number], [id number], [id number] ####[facility] (DEFAULT)[address] [place] [address] [place] Abs# 0.7 x10 Normal 0.0-0.8 [facility] Comment on above: Performed By: #### 7 [id number], [id number], [id number] ####[facility] (DEFAULT)[address] [place] [address] 6[address] Neut Abs# 4.8 x10 Normal 1.5-9.2 [facility] Comment on above: Performed By: #### 7 [id number], [id number], [id number] ####[facility] (DEFAULT)[address] [place] [address] 87999 Neutrophils/100 WBC (Bld) 68 % Normal 44-88 [facility] Comment on above: Performed By: #### 7 [id number], [id number], [id number] ####[facility] (DEFAULT)[address] [place] [address] [facility] Standardon 07-09-2023 eGFR Non AA >60 Invalid Interpretation Code [facility] Comment on above: Performed By: #### 7 [id number], [id number], [id number] ####[facility] (DEFAULT)[address] [place] [address] eGFR AA >60 Invalid Interpretation Code [facility] Comment on above: Performed By: #### 7 [id number], [id number], [id number] ####[facility] (DEFAULT)[address] [place] [address]32 Calcium [Mass/Vol] 9.1 mg/dL Normal 8.9-10.3 [facility] Comment on above: Performed By: #### 7 [id number], [id number], [id number] ####[facility] (DEFAULT)[address] [place] [address] 87879 Chloride [Moles/Vol] 106 mmol/L Normal 101-111 [facility] Comment on above: Performed By: #### 7 [id number], [id number], [id number] ####[facility] (DEFAULT)[address] [place] [address] 94662 CO2 [Moles/Vol] 30 mmol/L Normal 21-32 [facility] Comment on above: Performed By: #### 7 [id number], [id number], [id number] ####[facility] (DEFAULT)[address] [place] [address] 67606 Creatinine [Mass/Vol] 1.06 mg/dL Normal 0.90-1.30 [facility] Comment on above: Performed By: #### 7 [id number], [id number], [id number] ####[facility] (DEFAULT)[address] [place] [address] 28227 Glucose [Mass/Vol] 94.0 mg/dL Normal 74.0-118.0 [facility] Comment on above: Performed By: #### 7 659878, [id number], [id number] ####[facility] (DEFAULT)[address] [place] [address] 34352 Potassium [Moles/Vol] 4.1 mmol/L Normal 3.6-5.1 [facility] Comment on above: Performed By: #### 7 515151, [id number], [id number] ####[facility] (DEFAULT)[address] [place] [address] 98654 Sodium [Moles/Vol] 140.0 mmol/L Normal 136.0-144.0 [facility] Comment on above: Performed By: #### 7 912631, [id number], [id number] ####[facility] (DEFAULT)[address] [place] [address] 22754 Urea nitrogen [Mass/Vol] 17 mg/dL Normal 8-26 [facility] Comment on above: Performed By: #### 7 [id number], [id number], [id number] ####[facility] (DEFAULT)[address] [place] [address] 86225 Anion gap [Moles/Vol] 8.1 mmol/L Normal 5.0-19.0 [facility] Comment on above: Performed By: #### 7 074311, [id number], [id number] ####[facility] (DEFAULT)[address] [place] [address] 35377 Osmolality 281 mOsm/L Invalid Interpretation Code [facility] Comment on above: Performed By: #### 7 [id number], [id number], [id number] ####[facility] (DEFAULT)[address] [place] [address] 76438 Urea nitrogen/Creatinine [Mass ratio] 16.0 mg/mg Normal 4.6-16.2 [facility] Comment on above: Performed By: #### 7 225330, [id number], [id number] ####[facility] (DEFAULT)[address] [place] [address] CBC w/ Auto Diffon Erythrocyte distribution width (RBC) [Ratio] 14.4 % Normal 11.5-15.0 [facility] Comment on above: Performed By: #### 7 926380, [id number], [id number] ####[facility] (DEFAULT)[address] [place] [address] Hematocrit (Bld) [Volume fraction] 50.4 % Normal 34.8-51.9 [facility] Comment on above: Performed By: #### 7 632212, [id number], [id number] ####[facility] (DEFAULT)[address] [place] [address] Hemoglobin (Bld) [Mass/Vol] 16.6 g/dL Normal 11.8-17.7 [facility] Comment on above: Performed By: #### 7 156517, [id number], [id number] ####[facility] (DEFAULT)[address] [place] [address] Man Diff? Auto Invalid Interpretation Code [facility] Comment on above: Performed By: #### 7 097916, [id number], [id number] ####[facility] (DEFAULT)[address] [place] [address] MCH (RBC) [Entitic mass] 32 pg Normal 24-34 [facility] Comment on above: Performed By: #### 7 692502, [id number], [id number] ####[facility] (DEFAULT)[address] [place] [address] MCHC (RBC) [Mass/Vol] 33 g/dL Normal 26-37 [facility] Comment on above: Performed By: #### 7 [id number], [id number], [id number] ####[facility] (DEFAULT)[address] [place] [address] MCV (RBC) [Entitic vol] 97 fL Normal 81-100 [facility] Comment on above: Performed By: #### 7 847370, [id number], [id number] ####[facility] (DEFAULT)[address] [place] [address] Platelet 255 x10 Normal 138-427 [facility] Comment on above: Performed By: #### 7 598566, [id number], [id number] ####[facility] (DEFAULT)[address] [place] [address]1463 Platelet mean volume (Bld) [Entitic vol] 8.2 fL Normal 6.3-10.2 [facility] Comment on above: Performed By: #### 7 595277, [id number], [id number] ####[facility] (DEFAULT)[address] [place] [address] 27601 RBC 5.19 x10 Normal 3.70-5.30 [facility] Comment on above: Performed By: #### 7 800375, [id number], [id number] ####[facility] (DEFAULT)[address] [place] [address] 49466 WBC 7.0 x10 Normal 3.5-10.5 [facility] Comment on above: Performed By: #### 7 512592, [id number], [id number] ####[facility] (DEFAULT)[address] [place] [address] 69177 MRI PROSTATE W WO CONTRASTon 07-01-2022 MRI PROSTATE W WO CONTRAST EXAMINATION: MULTIPARAMETRIC MRI OF THE PROSTATE WITH AND WITHOUT CONTRAST 07/01/2022: TECHNIQUE: Multiparametric imaging with dynamic contrast enhanced imaging and diffusion weighted imaging was performed. Brain[employer] was utilized in analysis of images. COMPARISON: 06/21/2021 HISTORY: ORDERING SYSTEM PROVIDED HISTORY: Prostate cancer (HCC) TECHNOLOGIST PROVIDED HISTORY: STAT Creatinine as needed:->No Reason for Exam: Prostate cancer Additional signs and symptoms: hx of previous biopsy FINDINGS: PROSTATE: 4.6 cm x 3.5 cm x 4.6 cm (estimated volume 37 ml). TRANSITION ZONE: Heterogeneous with multiple nodules, consistent with BPH. *Index lesion Size: 1.4 cm x 1.1 cm x 0.7 cm Location: Right transition zone posteriorly, mid gland at 10-11 o'clock -T2: 4.Lenticular or non circumscribed, homogeneous moderately hypointense lesion that is less than 1.5 cm in greatest dimension. (Series 10, image 18-19) -Diffusion: 4. Focal markedly hypointense on ADC and markedly hyperintense at high B value DWI, less than 1.5 cm in greatest dimension. (Series 800, images 20-21) PI-RADS score: T2-weighted score 4, diffusion-weighted score 4, dynamic contrast-enhanced score -, overall score 4 Extraprostatic extension: None. PERIPHERAL ZONE: Mildly heterogeneous T2 signal without focal lesion identified. No restricted diffusion or abnormal enhancement. SEMINAL VESICLES: Normal. NEUROVASCULAR BUNDLE: Normal. LYMPHADENOPATHY: No pelvic nor inguinal lymphadenopathy. BLADDER: Normal. BOWEL: Normal course and caliber of the included small bowel and colon and of the rectum without obstruction. Diverticulosis. PERITONEAL CAVITY: No free intraperitoneal fluid. SOFT TISSUES/BONES: No focal signal abnormality identified. IMPRESSION: Unchanged appearance of 1.4 cm PI-RADS category 4 lesion in the right transition zone. No new findings otherwise appreciated in the interval. Interpreted by: Dylan Branch MD Signed by: Dylan Branch MD 07/01/22 Final result Normal [facility] Surgical Pathologyon 022 Surgical Pathology (NOTE) [id number] [facility] ANATOMIC PATHOLOGY [address] [id number] SURGICAL PATHOLOGY CONSULTATION Patient Name: ROCKY MCMANUS MR#: [id number] Specimen #[id number] Procedures/Addenda MOLECULAR PATHOLOGY REPORT Date Ordered: 08/13/2021 Status: Signed Out Date Complete: 08/13/2021 By: César Mendoza D.O. Date Reported: 08/13/2021 INTERPRETATION AT THE REQUEST OF DR. 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 THE RESULTS ARE FOLLOWS: DECIPHER SCORE: 0.34 GENOMIC RISK IS: LOW RISK OF METASTASIS WITH RT OR RP: 5-YEAR: 0.5% 10-YEAR: 1.3% RISK OF PROSTATE CANCER MORTALITY WITH RT OR RP: 15-YEAR: 2.6% RISK OF ADVERSE PATHOLOGY: AT RP: 16.3% PLEASE SEE [facility] COMPLETE REPORT FOR DETAILS. César Mendoza D.O. Final Diagnosis A. PROSTATE, RIGHT BASE LATERAL, NEEDLE CORE BIOPSY: -BENIGN PROSTATE TISSUE B. PROSTATE, LEFT APEX MEDIAL, NEEDLE CORE BIOPSY: -PROSTATIC ADENOCARCINOMA, KACI SCORE 3+3 = 6, INVOLVING 1 OF 1 CORE AND OCCUPYING 40% OF THE BIOPSY SPECIMEN, 3.5 MILLIMETER EXTENT -GRADE GROUP 1 C. PROSTATE, LEFT APEX LATERAL, NEEDLE CORE BIOPSY: -PROSTATIC ADENOCARCINOMA, KACI SCORE 3+4 = 7, INVOLVING 1 OF 1 CORE AND OCCUPYING APPROXIMATELY 60% OF THE BIOPSY SPECIMEN, 4.5 MILLIMETER EXTENT -PERCENTAGE OF PATTERN 4: 10-20% -GRADE GROUP 2 D. PROSTATE, LEFT MID MEDIAL, NEEDLE CORE BIOPSY: -BENIGN PROSTATE TISSUE E. PROSTATE, LEFT MID LATERAL, NEEDLE CORE BIOPSY: -ATYPICAL SMALL ACINAR PROLIFERATION, SUSPICIOUS, BUT NOT DIAGNOSTIC OF PROSTATIC ADENOCARCINOMA F. PROSTATE, LEFT BASE MEDIAL, NEEDLE CORE BIOPSY: -BENIGN PROSTATE TISSUE G. PROSTATE, LEFT BASE LATERAL, NEEDLE CORE BIOPSY: -BENIGN PROSTATE TISSUE H. PROSTATE, RIGHT APEX MEDIAL, NEEDLE CORE BIOPSY: -BENIGN PROSTATE TISSUE I. PROSTATE, RIGHT APEX LATERAL, NEEDLE CORE BIOPSY: -BENIGN PROSTATE TISSUE J. PROSTATE, RIGHT MID MEDIAL, NEEDLE CORE BIOPSY: -PROSTATIC ADENOCARCINOMA, KACI SCORE 3+3= 6, INVOLVING 1 OF 1 CORE AND OCCUPYING APPROXIMATELY 20% OF THE BIOPSY SPECIMEN, 2 MILLIMETER EXTENT -GRADE GROUP 1 K. PROSTATE, RIGHT MID LATERAL, NEEDLE CORE BIOPSY: -BENIGN PROSTATE TISSUE L. PROSTATE, RIGHT BASE MEDIAL, NEEDLE CORE BIOPSY: -BENIGN PROSTATE TISSUE M. PROSTATE, POINT OF INTEREST, NEEDLE CORE BIOPSY: -PROSTATIC ADENOCARCINOMA, KACI SCORE 3+3 = 6, INVOLVING 1 OF 4 CORES AND OCCUPYING LESS THAN 10% OF THE BIOPSY SPECIMEN, 2.5 MILLIMETER EXTENT -GRADE GROUP 1 César Mendoza, Electronically Signed Out [facility]07/19/2021 Clinical Information Pre-op Diagnosis: ELEVATED PSA Operative Findings: PROSTATE BIOPSIES Operation Performed: FUSION BIOPSY PROSTATE URO CARRIE Source: A: RIGHT BASE LATERAL B: LEFT APEX MEDIAL C: LEFT APEX LATERAL D: LEFT MID MEDIAL E: LEFT MID LATERAL F: LEFT BASE MEDIAL G: LEFT BASE LATERAL H: RIGHT APEX MEDIAL I: RIGHT APEX LATERAL J: RIGHT MID MEDIAL K: RIGHT MID LATERAL L: RIGHT BASE MEDIAL M: POINT OF INTEREST Gross Description ROCKY MCMANUS, PROSTATE BIOPSIES All specimens are received on sponges and are whitmore-white needle core biopsies with the following measurements: A. RIGHT BASE LATERAL One core, 0.8 cm in length x < 0.1 cm in diameter. Entirely 1cs. B. LEFT APEX MEDIAL One core, 1.0 cm in length x < 0.1 cm in diameter. Entirely 1cs. C. LEFT APEX LATERAL One core, 1.0 cm in length x < 0.1 cm in diameter. Entirely 1cs. D. LEFT MID MEDIAL One core, 1.3 cm in length x < 0.1 cm in diameter. Entirely 1cs. E. LEFT MID LATERAL One core, 0.8 cm in length x < 0.1 cm in diameter. Entirely 1cs. F. LEFT BASE MEDIAL One core, 1.0 cm in length x < 0.1 cm in diameter. Entirely 1cs. G. LEFT BASE LATERAL One core, 0.7 cm in length x < 0.1 cm in diameter. Entirely 1cs. H. RIGHT APEX MEDIAL One core, 1.0 cm in length x < 0.1 cm in diameter. Entirely 1cs. I. RIGHT APEX LATERAL One core, 0.8 cm in length x < 0.1 cm in diameter. Entirely 1cs. J. RIGHT MID MEDIAL One core, 1.2 cm in length x < 0.1 cm in diameter. Entirely 1cs. K. RIGHT MID LATERAL One core, 0.6 cm in length x < 0.1 cm in diameter. Entirely 1cs. L. RIGHT BASE MEDIAL One core, 1.2 cm in length x < 0.1 cm in diameter. Entirely 1cs. M. POINT OF INTEREST Four cores, 0.7, 0.8, 0.9 and 1.2 cm in length x < 0.1 cm in diameter. Entirely 2cs. mpb tm Microscopic Description A-M. Microscopic examination performed. Parts B, C and J were seen in intradepartmental consultation (SLS) for senior supplier quality engineer purposes. Normal [facility] Comment on above: Performed By: #### P PPVS #### [employer] [address] [id number] Design Technology Professor: Murtaza Tejada MD MRI PROSTATE W WO CONTRASTon 06-21-2021 MRI PROSTATE W WO CONTRAST EXAMINATION: MULTIPARAMETRIC MRI OF THE PROSTATE WITH AND WITHOUT CONTRAST 06/21/2021: TECHNIQUE: Multiparametric imaging with dynamic contrast enhanced imaging and diffusion weighted imaging was performed. [employer]ac[employer] was utilized in analysis of images. COMPARISON: None. HISTORY: ORDERING SYSTEM PROVIDED HISTORY: Elevated PSA TECHNOLOGIST PROVIDED HISTORY: Reason for Exam: Elevated PSA Levels FINDINGS: PROSTATE: 4.8 cm x 3.3 cm x 4.3 cm (estimated volume 34.1 ml). Index lesion 1 Size: 1.4 cm x 1.1 cm x 1.0 cm Location: Right posterolateral transition zone, midgland -moderately hypointense, non circumscribed T2 abnormality (series 4, image 102) -high B value hyperintensity and associated decreased ADC (series 5, image 97) PI-RADS score: T2-weighted score 4, diffusion-weighted score 3, dynamic contrast-enhanced score positive, overall score 4 Extraprostatic extension: Negative. Transition zone: Findings of BPH. Peripheral zone: Mildly heterogeneous T2 signal without focal signal abnormality SEMINAL VESICLES: Normal. NEUROVASCULAR BUNDLE: Normal. LYMPHADENOPATHY: No pelvic nor inguinal lymphadenopathy. BLADDER: Normal. BOWEL: Normal course and caliber of the included small bowel and colon and of the rectum without obstruction. Diverticulosis. PERITONEAL CAVITY: No free intraperitoneal fluid. SOFT TISSUES/BONES: No focal signal abnormality identified. IMPRESSION: 1.4 cm PI-RADS 4 lesion in the right posterolateral transition zone, mid gland. Interpreted by: Dylan Branch MD Signed by: Dylan Branch MD 06/21/21 Final result Normal [facility] Vital Signs Date Time Vital Sign Value Performing Clinician Светланаi dorina 11-18-2023 11:20-0400 Diastolic blood pressure 71 mm[Hg] JR Dhaval Choe Work Phone: [facility] 11-18-2023 11:20-0400 Heart rate 50 /min JR Puentes Дмитрий Work Phone: [facility] 11-18-2023 11:20-0400 Respiratory rate 16 /min JR Dhaval Choe Work Phone: [facility] 11-18-2023 11:20-0400 SaO2% (BldA) [Mass fraction] 96 % JR Dhaval Noelmackenzie Work Phone: [facility] 11-18-2023 11:20-0400 Systolic blood pressure 123 mm[Hg] JR Dhaval Choe Work Phone: [facility] 11-18-2023 10:18-0400 Body temperature 97.5 [degF] JR Dhaval Choe Work Phone: [facility] 11-18-2023 10:18-0400 Inhaled oxygen flow rate 6 L/min JR Dhaval Choe Work Phone: [facility] 11-18-2023 08:13-0400 Body mass index (BMI) [Ratio] 26.5 kg/m2 JR Dhaval Choe Work Phone: [facility] 11-18-2023 07:55-0400 Body height 177.8 cm JR Dhaval Choe Work Phone: [facility] 11-18-2023 07:55-0400 Body weight 84 kg JR Dhaval Choe Work Phone: [facility] 11-04-2023 08:47-0400 Body height 177.8 cm [facility] 11-04-2023 08:47-0400 Body mass index (BMI) [Ratio] 26.8 kg/m2 [facility] 11-04-2023 08:47-0400 Body temperature 97.3 [degF] [facility] 11-04-2023 08:47-0400 Body weight 84.82 kg [facility] 11-04-2023 08:47-0400 Diastolic blood pressure 80 mm[Hg] [facility] 11-04-2023 08:47-0400 Heart rate 50 /min [facility] 11-04-2023 08:47-0400 Respiratory rate 16 /min [facility] 11-04-2023 08:47-0400 SaO2% (BldA) [Mass fraction] 99 % [facility] 11-04-2023 08:47-0400 Systolic blood pressure 147 mm[Hg] [facility] 07-17-2021 14:35-0400 Body temperature 97 [degF] [facility] 07-17-2021 14:35-0400 Diastolic blood pressure 73 mm[Hg] Bradley Miller MD Work Phone: [employer] 07-17-2021 14:35-0400 Heart rate 54 /min Bradley Miller MD Work Phone: [employer] 07-17-2021 14:35-0400 Respiratory rate 13 /min Bradley Miller MD Work Phone: [employer] 07-17-2021 14:35-0400 SaO2% (BldA) [Mass fraction] 96 % Bradley Miller MD Work Phone: [employer] 07-17-2021 14:35-0400 Systolic blood pressure 138 mm[Hg] Bradley Miller MD Work Phone: [employer] 07-17-2021 11:19-0400 Body height 177.8 cm Bradley Miller MD Work Phone: [employer] 07-17-2021 11:19-0400 Body mass index (BMI) [Ratio] 26.83 kg/m2 Bradley Miller MD Work Phone: [employer] 07-17-2021 11:19-0400 Body weight 84.82 kg Bradley Miller MD Work Phone: [employer] [facility] Encounters Encounter Date Encounter Type Care Provider Facility Start: 2024 ambulatory [place] Faci lity:[facility] Start: 01-13-2024 End: 01-13-2024 ambulatory JR Dhaval Choe Work Phone: [facility] Work Phone: Start: 01-13-2024 End: 01-13-2024 Patient encounter procedure JR Dhaval Choe Work Phone: [facility] Work Phone: Start: 12-17-2023 Registered Recurring JR Earl Choe Work Phone: [facility] Work Phone: Start: 12-08-2023 Non-patient / Non-visit JR Miya santiago Valmackenzie Work Phone: [facility] Work Phone: Start: 12-05-2023 Non-patient / Non-visit JR Miya Choe Work Phone: [facility] Work Phone: Start: 11-20-2023 Non-patient / Non-visit JR Miya santiago Valmackenzie Work Phone: [facility] Work Phone: Start: 11-18-2023 Non-patient / Non-visit JR Miya Choe Work Phone: [facility] Work Phone: Start: 11-18-2023 End: 11-18-2023 Admission to same day surgery center JR Dhaval Choe Work Phone: [facility] [place] Start: 11-18-2023 End: 11-18-2023 ambulatory JR Dhaval Choe Work Phone: [facility] Work Phone: Start: 11-06-2023 End: 11-06-2023 Patient encounter procedure JR Dhaval Choe Work Phone: [facility] Work Phone: Start: 11-06-2023 End: 11-06-2023 ambulatory JR Dhaval Choe Work Phone: [facility] Work Phone: Start: 11-06-2023 Encounter for preprocedural laboratory examination [place] [facility] Start: 11-06-2023 Registered Recurring Earl virgen Дмитрий [facility] Work Phone: Start: 11-04-2023 End: 11-04-2023 ambulatory [facility] Work Phone: Start: 11-04-2023 End: 11-04-2023 [facility] Work [facility]: Start: 07-31-2023 End: 07-31-2023 ambulatory JR Dhaval Choe Work Phone: [facility] Work Phone: Start: 07-31-2023 End: 07-31-2023 Departed Referred JR Dhaval Choe Work Phone: [facility] Path Spec [facility] Start: 07-31-2023 End: 07-31-2023 ambulatory Bradley Miller Facility:[facility] Start: 07-09-2023 End: 07-09-2023 ambulatory DHAVAL Enrike NOELMACKENZIE Facility:[facility] Start: 07-01-2022 End: 07-04-2022 ambulatory [facility] Start: 05-30-2022 End: 05-31-[address] DOCTOR ISBELL Facility:[facility] Start: 09-24-2021 End: 09-25-[address] DOCTOR ISBELL Facility:[facility] Start: 07-17-2021 End: 07-17-2021 ambulatory [facility] Start: 07-17-2021 End: 07-17-2021 Subsequent hospital visit by physician Bradley Miller MD Work Phone: [facility] Start: 06-21-2021 End: 06-24-2021 ambulatory [facility] Procedures Date Procedure Procedure Detail Performing Clinician Start: 11-20-2023 MRI of prostate for radiotherapy planning JR Dhaval Choe Work Phone: Start: 11-18-2023 Cystoscopy JR Dhaval Choe Work Phone: Start: 05-30-[address] DOCTOR ISBELL Comment on above: Performed By: #### P SAD #### [facility] [address] [place] [address] Dr. Karly Lowe Start: 09-24-[address] DOCTOR MISC Comment on above: Performed By: #### P SAD #### [facility] [address] [address] [address] Karly Lowe Plan of Treatment Date Care Activity Detail Author Start: 11-18-2023 [facility] Start: 11-18-2023 [facility] Start: 06-21-2022 Creatinine measurement Creatinine mo nitoring [facility] Start: 07-17-2021 End: 07-17-2021 Prostate needle biopsy any approach PROSTATE BIOPSY DX ELEVATED PSA 07/17/2021 1:22 PM EDT [facility] Start: 12-20-2020 Influenza vaccination Flu vaccine (# 1) [facility] Start: 12-15-2020 COVID-19 Vaccine (3 - Booster for Moderna series) COVID-19 Vaccine (3 - Booster for Moderna series) [facility] Start: 05-11-2013 Potassium monitoring Potassium monit oring [facility] Start: 2013 Pneumococcal 65+ yea rs Vaccine (1 of 1 - PPSV23) Pneumococcal 65+ years Vaccine (1 of 1 - PPSV23) [facility] Start: 1998 Shingles Vaccine (1 of 2) Shingles Vaccine (1 of 2) [facility] Start: 1993 Screening for malign ant neoplasm of colon [facility] Start: 1967 DTaP/Tdap/Td vaccine (1 - Tdap) DTaP/Tdap/Td vaccine (1 - Tdap) [facility] Start: 1960 Depression Screen Depression Screen [facility] Start: 1958 Lipid panel Lipid screen [facility] Start: 1948 Hepatitis C screening Hepatitis C sc reen [facility] End: 07-18-2021 Blood glucose - POCT Blood glucose - POCT Point of Care Testing Routine One Time for 1 Occurrences starting 07/18/2021 until 07/18/2021 [facility] [employer] Phone: Comment on above: One Time for 1 Occur rences starting 07/18/2021 until 07/18/2021 Computed tomography for radiotherapy planning [facility] Continuous pulse oximetry Pulse oximetry, continuous Respiratory Care Routine Every 4hr until discontinued starting 07/18/2021 [employer] Phone: Comment on above: Every 4hr until disc ontinued starting 07/18/2021 MR Prostate WO and W contrast IV [facility] Patient Education Marlo sigala (DC) Know your Meds [facility] Work Phone: Patient referral [facility] Work Phone: Surgical Pathology Surgical Path ology Lab Routine Release Upon Ordering for 1 Occurrences starting 07/17/2021 [employer] Phone: Comment on above: Release Upon Orderin g for 1 Occurrences starting 07/17/2021 Surgical Pathology Surgical Path ology Lab Routine Release Upon Ordering for 1 Occurrences starting 07/17/2021 [employer] Phone: Comment on above: Release Upon Orderin g for 1 Occurrences starting 07/17/2021 End: 07-17-2021 SURGICAL PATHOLOGY REPORT SURGICAL PATHOLOGY REPORT Lab Routine Once for 1 Occurrences starting 07/17/2021 until 07/17/2021 [employer] Phone: Comment on above: Once for 1 Occurrenc es starting 07/17/2021 until 07/17/2021 End: 07-18-2021 Urine , POCT Urine , POCT Point of Care Testing Routine One Time for 1 Occurrences starting 07/18/2021 until 07/18/2021 [employer] Phone: Comment on above: One Time for 1 Occur rences starting 07/18/2021 until 07/18/2021 [facility] Immunizations Immunization Date Immunization Notes Care Provider Fa cility 07-15-2020 COVID-19, Moderna, Primary or Immunocompromised, PF, 100mcg/0.5mL Bradley Miller MD Work Phone: [employer] Phone: 06-18-2020 COVID-19, Moderna, Primary or Immunocompromised, PF, 100mcg/0.5mL Bradley Miller MD Work Phone: [facility] 06-17-2020 COVID-19 mRNA-1273 (Moderna) JR Dhaval Choe Work Phone: [facility] Payers Date Payer Category Payer Self-pay [id number] 1961 Private Health Insurance [id number] 1950 Unknown [id number] 1948 Unknown [id number] 1948 Unknown [id number] 1948 Unknown [id number] 2.16.84 [id number] 1950 Unknown [id number] 2.16.8 [id number] 1950 Unknown [id number] 2.16.8 [id number] 1950 Unknown [id number] 2.16.8 [id number] Unknown [id number] 2.16.8 [id number] Unknown [id number] 2.16.8 [id number] Unknown [id number] 2.16.8 [id number] Social History Date Type Detail Facility Start: 07-17-2021 End: 11-18-2023 Tobacco smoking status SDIS Never smoked tobacco [employer] Phone: Start: 07-17-2021 Tobacco use and exposure Smokeless tobacco non-user [employer] Phone: Start: 07-17-2021 Alcohol intake Current drinke r of alcohol (finding) [employer] Work Phone: Start: 07-17-2021 History SDOH Alcohol Comment daily 3-4 beers a day [employer] Phone: Start: 1950 Sex Assigned At Not on file M [employer] Phone: Start: 07-07-2021 End: 07-17-2021 Exposure to SARS-CoV-2 (event) Not sure [employer] Phone: Start: 1950 Sex Assigned At Male F [facility] Medical Equipment Procedure Code Equipment Code Equipment Origin al Text Equipment Identifier Dates Cystoscopy with insertion of fiducial markers and hydrogel rectal spacer BARRIGEL PROC KIT FDA Start: 11-18-2023 Cystoscopy with insertion of fiducial markers and hydrogel rectal spacer Imaging lesion localization marker, implantable [id number] FDA Start: 11-18-2023 Goals Date Patient Goal Desired Activity /State Clinical Notes 07-17-2021 to 11-18-2023 InstructionsAttachments Note Date & Type Note Facility 11-18-2023 Procedure note [facility] 08-05-2023 Note [id number] Note [id number]#1.00[facility] 07-31-2023 Note [facility] SURGERY Clinical Discharge Summary PERSON INFORMATION Name ROCKY MCMANUS Age 73 Years 1950 Sex MALE Language Faroese PCP DHAVAL CHOE JR. Marital Status Med Service Ambulatory Surgery Acct# Arrival 07/31/2023 08:25:45 Visit Reason SURGERY - FUSION PROSTATE BIOPSY Acuity LOS 071 05:02 Address: [address] [place] [id number] Comment: PROVIDER INFORMATION VITALS INFORMATION Vital Sign Triage Latest Temp Oral Temp Temporal Temp Intravascular Temp Axillary Temp Rectal 02 Sat 99 % 98 % Respiratory Rate Peripheral Pulse Rate Apical Heart Rate Blood Pressure / 84 mmHg / 66 mmHg Comment: MEDICAL INFORMATION Allergy Info: shellfish Prescriptions Given: allopurinol (allopurinol 100 mg oral tablet) 1 tab(s) Oral (given by mouth) 2 times a day (scheduled). aspirin (aspirin 81 mg oral delayed release tablet) 1 tab(s) Oral (given by mouth) every day. atorvastatin (atorvastatin 40 mg oral tablet) 1 tab(s) Oral (given by mouth) every day. celecoxib (celecoxib 200 mg oral capsule) 1 cap(s) Oral (given by mouth) every day. ciprofloxacin (ciprofloxacin 500 mg oral tablet) 1 tab(s) Oral (given by mouth) every day. for use the day before, the day of, and the day after procedure. empagliflozin (Jardiance 25 mg oral tablet) 0.5 tab(s) Oral (given by mouth) every day. fluticasone nasal (Flonase Allergy Relief 50 mcg/inh nasal spray) 1 puff(s) Nostril-Both 2 times a day (scheduled) as needed allergy symptoms. omeprazole (omeprazole 20 mg oral delayed release capsule) 1 cap(s) Oral (given by mouth) every day. sacubitril-valsartan (Entresto 49 mg-51 mg oral tablet) 1 tab(s) Oral (given by mouth) 2 times a day (scheduled). Medication List: Medications to Continue That Have Not Changed Other Medications allopurinol (allopurinol 100 mg oral tablet) 1 tab(s) Oral (given by mouth) 2 times a day (scheduled). aspirin (aspirin 81 mg oral delayed release tablet) 1 tab(s) Oral (given by mouth) every day. atorvastatin (atorvastatin 40 mg oral tablet) 1 tab(s) Oral (given by mouth) every day. celecoxib (celecoxib 200 mg oral capsule) 1 cap(s) Oral (given by mouth) every day. ciprofloxacin (ciprofloxacin 500 mg oral tablet) 1 tab(s) Oral (given by mouth) every day. for use the day before, the day of, and the day after procedure. empagliflozin (Jardiance 25 mg oral tablet) 0.5 tab(s) Oral (given by mouth) every day. fluticasone nasal (Flonase Allergy Relief 50 mcg/inh nasal spray) 1 puff(s) Nostril-Both 2 times a day (scheduled) as needed allergy symptoms. omeprazole (omeprazole 20 mg oral delayed release capsule) 1 cap(s) Oral (given by mouth) every day. sacubitril-valsartan (Entresto 49 mg-51 mg oral tablet) 1 tab(s) Oral (given by mouth) 2 times a day (scheduled). Medications to Continue That Have Not Changed Other Medications allopurinol (allopurinol 100 mg oral tablet) 1 tab(s) Oral (given by mouth) 2 times a day (scheduled). aspirin (aspirin 81 mg oral delayed release tablet) 1 tab(s) Oral (given by mouth) every day. atorvastatin (atorvastatin 40 mg oral tablet) 1 tab(s) Oral (given by mouth) every day. celecoxib (celecoxib 200 mg oral capsule) 1 cap(s) Oral (given by mouth) every day. ciprofloxacin (ciprofloxacin 500 mg oral tablet) 1 tab(s) Oral (given by mouth) every day. for use the day before, the day of, and the day after procedure. empagliflozin (Jardiance 25 mg oral tablet) 0.5 tab(s) Oral (given by mouth) every day. fluticasone nasal (Flonase Allergy Relief 50 mcg/inh nasal spray) 1 puff(s) Nostril-Both 2 times a day (scheduled) as needed allergy symptoms. omeprazole (omeprazole 20 mg oral delayed release capsule) 1 cap(s) Oral (given by mouth) every day. sacubitril-valsartan (Entresto 49 mg-51 mg oral tablet) 1 tab(s) Oral (given by mouth) 2 times a day (scheduled). Medications to Continue That Have Not Changed Other Medications allopurinol (allopurinol 100 mg oral tablet) 1 tab(s) Oral (given by mouth) 2 times a day (scheduled). aspirin (aspirin 81 mg oral delayed release tablet) 1 tab(s) Oral (given by mouth) every day. atorvastatin (atorvastatin 40 mg oral tablet) 1 tab(s) Oral (given by mouth) every day. celecoxib (celecoxib 200 mg oral capsule) 1 cap(s) Oral (given by mouth) every day. ciprofloxacin (ciprofloxacin 500 mg oral tablet) 1 tab(s) Oral (given by mouth) every day. for use the day before, the day of, and the day after procedure. empagliflozin (Jardiance 25 mg oral tablet) 0.5 tab(s) Oral (given by mouth) every day. fluticasone nasal (Flonase Allergy Relief 50 mcg/inh nasal spray) 1 puff(s) Nostril-Both 2 times a day (scheduled) as needed allergy symptoms. omeprazole (omeprazole 20 mg oral delayed release capsule) 1 cap(s) Oral (given by mouth) every day. sacubitril-valsartan (Entresto 49 mg-51 mg oral tablet) 1 tab(s) Oral (given by mouth) 2 times a day (scheduled). Comment: Lab and (more content not included)... [facility] 07-17-2021 Hospital Discharg e Bradley Rosas MD - 07/17/2021 Gregorio, Your procedure went excellent. Please resume your aspirin this Friday. Blood in the urine and blood in the stool is normal for 2 to 3 days. Please not be alarmed by this. If you have a fever you were asked to please go to the emergency room immediately or call our office during business hours. This signifies infection, but is a rare. Otherwise resume all other home medications. Regular diet. No activity restrictions. Best, Dr. Bradley Miller MD The following attachments cannot be sent through Care Everywhere.Prostate Biopsy (Faroese)documented in this encounter [facility] Work Phone: Evaluation note No assessment inform ation available [facility] Work Phone: Evaluation note Diagnosis Onset Date Prostate cancer acute [facility] Work Phone: Evaluation note* Diagnosis Onset Date Resolution Status Prostate cancer acute Prostate cancer acute [facility] Work Phone: Hospital Discharge instructions Additional Instructions Patient has follow-up in radiation oncology this , November 19 for planning scans. He and his are aware of the appointment.[facility] Work Phone: Progress note Author Pretty Key [facility] November 04, 2023 9:50am Note Date/Time November 04, 2023 8:53 am [facility] [place] [address] Cancer Center Note Signed Patient: Rocky Mcmanus MR#: [id number] : 1950 Acct:[id number] Age/Sex: 73 / M Type: REG AMB Date of Service: 11/04/23 Copies to: Bradley Choe Jr, DO~ Assessment & Plan (1) Prostate cancer: Plan: Schedule OR for fiducial and hydrogel placement This will be followed several days later by CT simulation and treatment planningMRI Plan for definitive SBRT of the prostate 37.5 Mendez in 5 fractions delivered every other day Lupron 45 mg x 1 Genetics referral -2 brothers with prostate cancer, 1 metastatic Assessment: 73-year-old male on active surveillance since 2021 with favorable intermediate risk prostate cancer. Now with PSA 3.82 and recent biopsy confirming 2 cores ofgrade group 1 disease in 2 cores of grade group 2 disease for total of 4 out of 13. Decipher returned 0.77 high risk and patient is been referred to discuss definitive radiation. Patient understands that options for treatment include surgery or radiation. He has met with urology and declined surgical intervention. I recommend noninvasive management with SBRT to a dose of 37.5Gray in 5 fractions delivered every other day. I provided a general overview of radiation treatment planning and delivery. We discussed the need for fiducial and hydrogel placement followed by CT simulationand repeat MRI prostate for treatment planning. Short and long-term side effects were reviewed in detail and his questions were answered. He was consented to receive care. Based on the high risk decipher I recommend 6 months of ADT. We discussed the side effects of ADT and patient is agreeable to plan. Orders: Orders CT Simulation 11/20/23 C61 - Malignant neoplasm of prostate MR prostate wo/w con 11/20/23 C61 - Malignant neoplasm of prostate History of Present Illness HPI 73-year-old male followed by urology for elevated PSA. Patient with a strong family history of prostate cancer in both of his younger brothers. Brother was diagnosed with metastatic disease upfront this 13 years younger. June 21, 2021 MRI of the prostate shows a 34 mL gland with a 1.4 cm index lesionin the right transition zone. Negative for EPE. Findings of BPH. September 2021 PSA 3.54--> July 01, 2022 MRI of the prostate showed a PI-RADS 4 lesion 1.4 cm in the righttransition zone. No extraprostatic extension. Lesion was unchanged. Volume estimated 37 mL. Fusion biopsy showed 3 areas of Kaci 6 and 1 area of Kaci 3+4 = 7 disease. Decipher testing returned low risk with 1.2% risk of metastatic disease in 10 years. Patient placed on active surveillance. July 2022 PSA increased to 4.89--> MRI showed stable 1.4 cm transitional zone from the right. October 2022 PSA 3.September PSA 3.82 August 01, 2023 repeat TRUS biopsy confirms Kaci 3+3=6 disease in 2 cores withGleason 3+4 = 7 disease in 2 cores, largest with 30% pattern 4 involving 10% of the biopsy volume in the area of interest . Total of 4 of 13 cores positive Repeat Decipher returned high risk 0.77 Today patient is accompanied by his . They live in [place]. IPSS is 9 with urgency about half the time. Patient has never required medication. Quality of life is mostly satisfied. MEE is 14. Intake Vitals/Pain Assessment 11/04/23 08:47 Height 5 ft 10 in Weight 84.822 kg BMI 26.8 Body Fat % 44.06 BP 147/80 H Blood Pressure Location Lt brachial Position Sitting Temp 97.3 F L Temp Source Temporal Pulse 50 L Pulse Source NIBP Respiration 16 Pulse Oximetry (%) 99 Oxygen Delivery Method room air Are you having pain? No Intake Visit Reasons: New Patient Prostate cancer, new patient Allergies No Known Allergies Allergy (Verified 11/04/23 08:49) - Last Reconciled 11/04/23 by Maria De Jesus aWng allopurinol 100 mg PO BID aspirin 81 mg PO DAILY atorvastatin 40 mg PO DAILY celecoxib (Celebrex) 200 mg PO DAILY cholecalciferol (vitamin D3) 25 mcg PO DAILY empagliflozin (Jardiance) 25 mg PO DAILY omeprazole 20 mg PO DAILY sacubitril-valsartan 24-26 mg (Entresto) 1 tab PO BID Gastrointestinal Is the patient taking opioids for pain control?: No [place] Precaution Measures Taken: Patient in chair Nurse's Note: Patient is here today for a new patient appointment from Dr Miller for prostate cancer [facility] Medical History Medical History (Updated 11/03/23 @ 15:51 by Pretty Key MD) Hypertension Hyperlipidemia Prostate cancer Surgical History Surgical History (Updated 11/03/23 @ 09:43 by Maria De Jesus Wang) H/O repair of rotator cuff Family History Family History (Updated 11/03/23 @ 09:42 by Maria De Jesus Wang) Brother Cancer Prostate cancer Social History Social History (Updated 11/04/23 @ 08:52 by Maria De Jesus Wang) Smoking status: Never smoker Within the past year, how many standard drinks containing alcohol did you have on a typical day: 5 or 6 Within the past year, how often did you have six or more drinks on one occasion: daily or almost daily In the past 12 months, have you used illegal drugs or prescription drugs for non-medical reasons?: No Physical Exam EXAM Physical Exam KPS 90 General: alert and oriented male in no acute distress HEENT: normocephalic, extra ocular movements intact Lungs: normal work of breathing on room air Abdomen: non acute MSK: extremities within normal limits Neuro: grossly intact Results - [facility] (Rad Onc) LAB RESULTS No Data to Display AUA Symptom Score AUA Incomplete emptying - It does not feel like I empty my bladder all the way.: 1 - Less than 1 time in 5 Frequency - I have to go again less than two hours after I finish urinating.: 0 - Not at all Intermittency - I stop and start again several times when I urinate.: 2 - Less than half the time Urgency - It is hard to wait when I have to urinate.: 3 - About half the time Weak stream - I have a weak urinary stream.: 2 - Less than half the time Straining - I have to push or strain to begin urination.: 0 - Not at all Nocturia - I get up to urinate after I go to bed until the time I get up in the morning.: 1 time AUA Symptom Score: 9 Quality of life due to urinary symptoms: If you were to spend the rest of your life with your urinary condition the way it is now, how would you feel about that?: Mixed: about equally satisfied and dissatisfied Source: Mario HIGGINS, Cole KHOURY Jr, O'Jasper MP, et al, and the Measurement Committeeof the [place] [employer]. The [place] [employer] symptom index for benign prostatic hyperplasia. J Urol. 1992; 148: 6719-3962. Copyright 1992 [place] [employer] MEE Score Over the past six months How do you rate your confidence that you could get and keep an erection?: Very low When you had erections with sexual stimulation, how often were your erections hard enough for penetration?: Sometimes (about half the time) During sexual intercourse, how often were you able to maintain your erection after you had penetrated your partner?: Sometimes (about half the time) During sexual intercourse, how difficult was it to maintain your erection to completion of intercourse?: Difficult When you attempted sexual intercourse, how often was it satisfactory for you?: Most times (much more than half the time) MEE Total: 14 Dictated By: Pretty Key MD DD/ [id number] Signed By: <Electronically signed by Pretty Key MD> 11/04/23 0950 [facility] Work Phone: Progress note Author Pretty Key [facility] January 13, 2024 11:41am Note Date/Time January 13, 2024 11:29am [facility] [place] [address] Cancer Center Note Signed Patient: Rocky Mcmanus MR#: [id number] : 1950 Acct:[id number] Age/Sex: 73 / M Type: REG AMB Date of Service: 01/13/24 Copies to: Bradley Choe Jr, DO~ Assessment & Plan (1) Prostate cancer: Plan: Return to clinic February 2024 for first posttreatment PSA Assessment: 73-year-old male on active surveillance since 2021 with favorable intermediate risk prostate cancer. Now with PSA 3.82 and recent biopsy confirming 2 cores ofgrade group 1 disease in 2 cores of grade group 2 disease for total of 4 out of 13. Decipher returned 0.77 high risk and patient is been referred to discuss definitive radiation. Patient understands that options for treatment include surgery or radiation. December 17, 2023 patient completed SBRT to the prostate 37.5 Mendez in 5 fractions delivered every other day. He was initiated on tamsulosin for LUTS with an excellent response. Due to the elevated decipher he received a single injection of Lupron 45 mg on November 06, 2023 for short-term ADT. I am pleased with his progress. Fecal incontinence is rare after SBRT especially in light of the hydrogel spacer however it appears patient has recovered and bowels have returned to baseline. IPSS is lower than consult and patient was counseled he can attempt a trial off the tamsulosin. He will stay on it for 1 more month and taper at that point. Will plan on seeing him back 2023 for repeat PSA. Patient continues to follow with urology as well. Orders: Orders PSA Total (Not a Screen) 2 Months C61 - Malignant neoplasm of prostate History of Present Illness HPI 73-year-old male followed by urology for elevated PSA. Patient with a strong family history of prostate cancer in both of his younger brothers. Brother was diagnosed with metastatic disease upfront this 13 years younger. June 21, 2021 MRI of the prostate shows a 34 mL gland with a 1.4 cm index lesionin the right transition zone. Negative for EPE. Findings of BPH. September 2021 PSA 3.54--> July 01, 2022 MRI of the prostate showed a PI-RADS 4 lesion 1.4 cm in the righttransition zone. No extraprostatic extension. Lesion was unchanged. Volume estimated 37 mL. Fusion biopsy showed 3 areas of [place] 6 and 1 area of [place] 3+4 = 7 disease. Decipher testing returned low risk with 1.2% risk of metastatic disease in 10 years. Patient placed on active surveillance. July 2022 PSA increased to 4.89--> MRI showed stable 1.4 cm transitional zone from the right. October 2022 PSA 3.September PSA 3.82 August 01, 2023 repeat TRUS biopsy confirms Kaci 3+3=6 disease in 2 cores withGleason 3+4 = 7 disease in 2 cores, largest with 30% pattern 4 involving 10% of the biopsy volume in the area of interest . Total of 4 of 13 cores positive Repeat Decipher returned high risk 0.77 At consult IPSS 9 with urgency about half the time. Patient has never requiredmedication. Quality of life is mostly satisfied. MEE is 14. December 17, 2023 patient completed SBRT to the prostate 37.5 Mendez in 5 fractions delivered every other day. Tolerated his treatment well however did experience weak stream after completion of the third fraction along with increasing nocturia. He was initiated on tamsulosin 0.4 mg daily with an excellent response. He felt he was urinating normally by the end of treatment. Due to the elevated decipher he received a single injection of Lupron 45 mg on November 06, 2023 for short-term ADT. Returns to clinic today for 1 month follow-up. IPSS 5 which is lower than consult with nocturia 1 time a night. Continues on the tamsulosin. Quality of life is pleased. MEE is 8 which is lower than consult. Patient does report several episodes of fecal incontinence during the 2 weeks after completion of radiation. He states symptoms have resolved and is now at his baseline. Intake Intake Visit Reasons: Follow Up, 1 Month Allergies shellfish derived Allergy (Verified 11/06/23 15:26) Swelling of Lip/Tongue/Throat [facility] Medical History Medical History Hypertrophic cardiomyopathy treated by Dr Дмитрий Fernandez Hx of dislocation of shoulder left Hypertension Hyperlipidemia Prostate cancer Surgical History Surgical History Hx of colonoscopy Hx of repair of right rotator cuff Family History Family History Brother Cancer Prostate cancer Brother Cancer Sister Breast cancer Mother COPD (chronic obstructive pulmonary disease) Father Lung cancer Social History Social History (Updated 11/04/23 @ 08:52 by Maria De Jesus Wang) Smoking status: Never smoker Within the past year, how many standard drinks containing alcohol did you have on a typical day: 5 or 6 Within the past year, how often did you have six or more drinks on one occasion: daily or almost daily In the past 12 months, have you used illegal drugs or prescription drugs for non-medical reasons?: No Physical Exam EXAM Physical Exam KPS 90 General: alert and oriented male in no acute distress HEENT: normocephalic, extra ocular movements intact Lungs: normal work of breathing on room air Abdomen: non acute MSK: extremities within normal limits Neuro: grossly intact Results - [facility] (Rad Onc) LAB RESULTS Glucose 75 mg/dL (70-100) 11/06/23 15:15 BUN 16 mg/dL (7-25) 11/06/23 15:15 Creatinine 1.16 mg/dL (0.70-1.30) 11/06/23 15:15 Est GFR (CKD-EPI) > 60.0 mL/Min 11/06/23 15:15 Sodium 139 mmol/L (136-145) 11/06/23 15:15 Potassium 4.3 mmol/L (3.5-5.1) 11/06/23 15:15 Chloride 107 mmol/L (98-107) 11/06/23 15:15 Carbon Dioxide 27.0 mmol/L (21.0-31.0) 11/06/23 15:15 Anion Gap 9.3 mEq/L (6.0-15.0) 11/06/23 15:15 Calcium 8.8 mg/dL (8.6-10.3) 11/06/23 15:15 Social Determinants of Health AUA Incomplete emptying - It does not feel like I empty my bladder all the way.: 1 - Less than 1 time in 5 Frequency - I have to go again less than two hours after I finish urinating.: 0 - Not at all Intermittency - I stop and start again several times when I urinate.: 1 - Less than 1 time in 5 Urgency - It is hard to wait when I have to urinate.: 1 - Less than 1 time in 5 Weak stream - I have a weak urinary stream.: 1 - Less than 1 time in 5 Straining - I have to push or strain to begin urination.: 0 - Not at all Nocturia - I get up to urinate after I go to bed until the time I get up in the morning.: 1 time AUA Symptom Score: 5 Quality of life due to urinary symptoms: If you were to spend the rest of your life with your urinary condition the way it is now, how would you feel about that?: Pleased Source: Mario HIGGINS, Cole KHOURY Jr, O'Jasper MP, et al, and the Measurement Committeeof the [place] [employer]. The [place] [employer] symptom index for benign prostatic hyperplasia. J Urol. 1992; 148: 8805-8479. Copyright 1992 [place] [employer] Over the past six months How do you rate your confidence that you could get and keep an erection?: Very low When you had erections with sexual stimulation, how often were your erections hard enough for penetration?: Almost never or never During sexual intercourse, how often were you able to maintain your erection after you had penetrated your partner?: Almost never or never During sexual intercourse, how difficult was it to maintain your erection to completion of intercourse?: Very difficult When you attempted sexual intercourse, how often was it satisfactory for you?: Afew times (much less than half the time) MEE Total: 7 Dictated By: Pretty Key MD DD/ 1141 Signed By: <Electronically signed by Pretty Key MD> 01/13/24 1141 [facility] Work Phone: Reason for visit Narrative* Auth/Cert Specialty Diagnoses / Procedures Referred By Contac t Referred To Contact Diagnoses Elevated PSA DX ELEVATED PSA Procedures [place] BIOPSY OF PROSTATE,NEEDLE/PUNCH FUSION BIOPSY PROSTATE URO CARRIE- (MRI ST V'S 06/21) Bradley Farias MD [address] [place] [address] [employer] [address] [place] [address] Referral ID Status Reason Start Date Expiration Date Visits Re quested Visits Authorized [id number] 1 1 [employer] Phone: Summary Purpose Family History No Family History Records Found Relationship Condition Age at Onset Recorded Date/T inocencio brother Malignant neoplasm Unknown Relationship Condition Age at Onset Recorded Date/T inocencio brother Malignant neoplasm Unknown sister Malignant neoplasm of breast Unknown mother Chronic obstructive pulmonary disease Unk nown Unknown father Malignant neoplasm of lung Unknown Advance Directives No Advanced Directives Records FoundDocuments on File Type Date Recorded 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 Advance Directive Response Recorded Date/ Time Advance Directives No October 29 10:07am Chief Complaint and Reason for Visit Chief Complaint New Patient Prostate cancer Prostate Cancer Prostate Cancer Prostate Cancer Prostate Cancer Prostate Cancer Prostate Cancer Prostate Cancer Follow Up, 1 Month Reason for Visit Prostate cancer Prostate cancer Chief Complaint New Patient Prostate cancer Prostate Cancer Prostate Cancer Prostate Cancer Prostate Cancer Reason for Visit Prostate cancer Chief Complaint New Patient Prostate cancer Prostate Cancer Prostate Cancer Reason for Visit Prostate cancer Chief Complaint New Patient Prostate cancer Reason for Visit Prostate cancer Additional Source Comments (unrecognized sect ion and content) No Status Records FoundNo Status Records FoundNo Status Records FoundNo Status Records FoundNo Status Records FoundNo Status Records Found INFORMATION SOURCE (unrecogn ized section and content) DATE CREATED AUTHOR 06/24/2021 [facility] DATE CREATED AUTHOR AUTHOR'S ORGANIZ ATION 08/15/2021 [facility] DATE CREATED AUTHOR AUTHOR'S ORGANIZ ATION 06/03/2022 [facility] DATE CREATED AUTHOR AUTHOR'S ORGANIZ ATION 07/05/2022 [facility] DATE CREATED AUTHOR AUTHOR'S ORGANIZ ATION 10/10/2023 [facility] DATE CREATED AUTHOR AUTHOR'S ORGANIZ ATION 03/17/2024 [facility] Scheduled Active and Recently Administ ered Medications (unrecognized section and content) Medication Order 07/15/2021 07/16/2021 07/17/2021 ceFAZolin (ANCEF) 2000 mg in dextrose 5 % 50 mL IVPB (COMPLETED) 2,000 mg, IntraVENous, ONCE, 1 dose, On Fri07/17/21 at 1300, Antimicrobial Indications: Surgical Prophylaxis, Pre-op (day of surgery), STAT 1322 (Given - Provid er: ALEX Nguyen CRNA) Continuous Medication Order 07/15/2021 07/16/2021 07/17/2021 lactated ringers infusion IntraVENous, at 50 mL/hr, CONTINUOUS, Starting on Fri07/18/21 at 0000, Substitute normal saline for patients with renal insufficiency/failure, Pre-op (day of surgery) 1143 (New Bag - Prov ider: Sujata Dangelo RN)1322 (NoRateChange - Provider: ALEX Nguyen CRNA)1357 (Paused - Provider: ALEX Nguyen CRNA - Comment: Switch to gravity)1358 (Restarted - Provider: ALEX Nguyen CRNA) PRN Medication Order 07/15/2021 07/16/2021 07/17/2021 lidocaine PF 1 % injection 1 mL 1 mL, IntraDERmal, ONCE PRN, 1 dose, Starting on Fri07/18/21 at 0000, Until Fri07/18/21 at 2359, IV start, Pre-op (day of surgery) Care Teams (unrecognized sec tion and content) 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 Start Date End Date Dhaval Choe DO [address] [place] [id number] PCP - General 05/08/12 Team Status: Active Member Role Status Dates Dhaval Choe JR DO Primary Care Provider Active Team Status: Inactive Member Role Status Dates Dhaval Choe JR DO Primary Care Provider Active Start: July 31, 2023 End: July 31, 2023 Bradley Miller MD Attending Provider Active Start: July 31, 2023 End: July 31, 2023 Team Status: Inactive Member Role Status Dates Dhaval Choe JR DO Primary Care Provider Active Start: November 04, 2023 End: November 04, 2023 Pretty Key MD Attending Provider Active Start: November 04, 2023 End: November 04, 2023 Bradley Miller MD Referring Provider Active Start: November 04, 2023 End: November 04, 2023 Team Status: Active Member Role Status Dates Dhaval Choe JR DO Primary Care Provider Active Start: November 06, 2023 Pretty Key MD Attending Provider Active Start: November 06, 2023 Bradley Miller MD Referring Provider Active Start: November 06, 2023 Team Status: Inactive Member Role Status Dates Dhaval Choe JR DO Primary Care Provider Active Start: November 06, 2023 End: November 06, 2023 Pretty Key MD Attending Provider Active Start: November 06, 2023 End: November 06, 2023 Team Status: Inactive Member Role Status Dates Dhaval Choe JR DO Primary Care Provider Active Start: November 18, 2023 End: November 18, 2023 Pretty Key MD Attending Provider Active Start: November 18, 2023 End: November 18, 2023 Team Status: Active Member Role Status Dates Dhaval Choe JR DO Primary Care Provider Active Start: November 18, 2023 Pretty Key MD Attending Provid er, Other Provider Active Start: November 18, 2023 Team Status: Active Member Role Status Dates Dhaval Choe JR DO Primary Care Provider Active Start: November 20, 2023 Pretty Key MD Attending Provid er, Other Provider Active Start: November 20, 2023 Bradley Miller MD Referring Provider Active Start: November 20, 2023 Team Status: Active Member Role Status Dates Dhaval Choe JR DO Primary Care Provider Active Start: December 05, 2023 Pretty Key MD Attending Provid er, Other Provider Active Start: December 05, 2023 Bradley Miller MD Referring Provider Active Start: December 05, 2023 Team Status: Active Member Role Status Dates Dhaval Choe JR DO Primary Care Provider Active Start: December 08, 2023 Pretty Key MD Attending Provid er, Other Provider Active Start: December 08, 2023 Bradley Miller MD Referring Provider Active Start: December 08, 2023 Team Status: Active Member Role Status Dates Dhaval Choe JR DO Primary Care Provider Active Start: December 17, 2023 Pretty Key MD Attending Provider Active Start: December 17, 2023 Bradley Miller MD Referring Provider Active Start: December 17, 2023 Team Status: Inactive Member Role Status Dates Dhaval Choe JR DO Primary Care Provider Active Start: January 13, 2024 End: January 13, 2024 Pretty Key MD Attending Provider Active Start: January 13, 2024 End: January 13, 2024 Goals (unrecognized section and content) Goals may be documented in a n alternate sectionGoals may be documented in an alternate sectionGoals may be documented in an alternate section FOR RECORDS PERTAINING TO PATIENTS WHO ARE OR HAVE BEEN ENROLLED IN A CHEMICAL DEPENDENCY/SUBSTANCEABUSE PROGRAM, SOME INFORMATION MAY BE OMITTED. This clinical summary was aggregated from multiple sources. Caution should be exercised in using it in the provision of clinical care. This summary normalizes information from multiple sources, and as a consequence, information in this document may materially change the coding, format and clinical context of patient data. In addition, data may be omitted in some cases. CLINICAL DECISIONS SHOULD BE BASED ON THE PRIMARY CLINICAL RECORDS. [employer] provides no warranty or guarantee of the accuracy or completeness of information in this document.
[2024-07-05 11:58] LABS: Prostate Specific Antigen Dx <0.13 ng/mL (<=4.00)
== END 2024-07-05 09:46 | disposition home or self-care (01) ==
LOC: LAB 09:47
PROVIDERS: PCP Internal Medicine
DX: C61 Malignant neoplasm of prostate (principal)
CPT/HCPCS: 36415; 84153

== ENCOUNTER 2024-12-16 09:04 | Emergency (ER) | payer MEDICARE, SELFPAY ==
--- OUTSIDE RECORDS SUMMARY | 2024-12-16 09:14 | XMS_ITS | CCD ---
Author Organization [facility] CliniSyma Care Team Providers Care College Instructor Name Role Phone BRADLEY MILLER Referring Unavailable DHAVAL CHOE Primary Care Unavailable Dhaval Choe DO Primary Care Provider BRADLEY MILLER Admitting Unavailable BRADLEY MILLER Attending Unavailable DHAVAL CHOE Primary Care Unavailable MISC, DR JENNINGS Admitting Unavailable MISC, DR JENNINGS Attending Unavailable VALONE, DR TEE Referring Unavailable VALONE, DR TEE Primary Care Unavailable MISC, DR JENNINGS Consulting Unavailable MISC, DR JENNINGS Admitting Unavailable MISC, DR JENNINGS Attending Unavailable VALONE, DR TEE Primary Care Unavailable MISC, DR JENNINGS Consulting Unavailable BRADLEY MILLER Referring Unavailable DHAVAL CHOE Primary Care Unavailable JR Dhaval Choe Primary Care Provider MD Bradley Miller Attending Provider [phone] JR Dhaval Choe Primary Care Provider MD Pretty Key Attending Provider MD Bradley Miller Referring Provider JR Dhaval Choe Primary Care Provider [phone] MD Pretty Key Attending Provider MD Bradley Miller Referring Provider Bradley Miller Attending Unavailable Bradley Miller Admitting Unavailable DHAVAL CHOE JR. Primary Care Unavailabl e Dhaval Choe JR Primary Care Provider Pretty Key MD Attending Provider Bradley Miller MD Referring Provider Dhaval Choe JR Primary Care Provider [phone] Yaima Chang MD Attending Provider [phone] Pretty Key MD Referring Provider Pretty Key MD Attending Provider Bradley Miller MD Referring Provider [phone] Brielle Murrell APRN Attending Provider Pretty Key MD Attending Provider Bradley Miller MD Referring Provider Pretty Key MD Attending Provider Bradley Miller MD Referring Provider [phone] Pretty Key Attending Unavailable Bradley Miller Referring Unavailable Dhaval Choe Primary Care Unavailable Pretty Key Admitting Unavailable Allergies Allergy Classification Reported Allergen(s) Allergy Type Date of Onset Reaction(s) Facility (1 source) Shellfish Propensity to adverse reactions to drug 5 [facility] (2 sources) Shellfish; Translations: [shellfish] Drug allergy (disorder) 5 [facility]ository (1 source) Shellfish Drug allergy (disorder) 4 [facility] Repository Medications Current Medications Medication Drug Class(es) Dates Sig (Normalized) Sig (Original) allopurinol 100 mg oral tablet (9 sources) Xanthine Oxidase Inhibitor Start: 11-04-2023 take 1 tablet by mouth twice daily take 1 tablet by mouth once merlyn y allopurinol (ZYLOPRIM) 100 MG tablet Take 100 mg by mouth daily 0 Suspended aspirin 81 mg chewable tablet (9 sources) Platelet Aggregation Inhibitor, Nonsteroidal Anti-inflammatory Drug Start: 11-04-2023 take 1 tablet by mouth once daily take 3 tablets by mouth once kaylen ly aspirin 81 MG EC tablet Take 243 mg by mouth daily 0 Suspended atorvastatin 40 mg oral tablet (9 sources) HMG-CoA Reductase Inhibitor Start: 11-04-2023 take 1 tablet by mouth once daily Start: 06-12-2021 atorvastatin ( LIPITOR) 40 MG tablet calcium chloride 0.0014 meq/ ml / potassium chloride 0.004 meq/ml / sodium chloride 0.103 meq/ml / sodium lactate 0.028 meq/ml injectable solution (1 source) Start: 07-18-2021 lactated ringe rs infusion Start: 07-18-2021 lactated ringe rs infusion celecoxib 200 mg oral capsule (9 sources) Nonsteroidal Anti-inflammatory Drug Start: 11-04-2023 take 1 capsule by mouth once daily take 1 capsule by mouth twice da naresh celecoxib (CELEBREX) 200 MG capsule Take 200 mg by mouth 2 times daily 0 Suspended cholecalciferol 0.025 mg ora l capsule (9 sources) Vitamin D Start: 11-04-2023 take 1 capsule by [facility] once daily Cholecalciferol (VITAMIN D) 50 MCG (1999) CAPS capsule Take by mouth 0 Suspended empagliflozin 25 mg oral tablet (8 sources) Sodium-Glucose Cotransporter 2 Inhibitor Start: 11-04-2023 take 1 tablet by mouth once daily 10 ml lidocaine hydrochloride 10 mg/ml injection (1 source) Antiarrhythmic, Amide Local Anesthetic Start: 07-18-2021 End: 07-18-2021 lidocaine PF 1 % injection 1 mL omeprazole 20 mg delayed release oral capsule (9 sources) Proton Pump Inhibitor Start: 11-04-2023 take 1 capsule by mouth once daily take 1 capsule by mouth once kaylen ly omeprazole (PRILOSEC) 20 MG delayed release capsule Take 20 mg by mouth daily 0 Suspended sacubitril 24 mg / valsartan 26 mg oral tablet (8 sources) Angiotensin 2 Receptor Prasanth Start: 11-04-2023 take 1 tablet by mouth twice daily Completed/Discontinued Medications Medication Drug Class(es) Dates Sig [...] mg by mouth daily 0 06/08/2021 Suspended tamsulosin hydrochloride 0.4 mg oral capsule (12 sources) alpha-Adrenergic Prasanth Start: 12-12-2023 End: 10-12-2024 take 1 capsule by mouth once daily Tamsulosin (Flomax) 0.4 mg capsule Discontinued 0.4 MG PO Daily April 28, 2024 2:23pm October 12, 2024 3:33pm Problems Problem Classification Problem Date Documented Da te Episodic/Chronic Cancer of prostate (20 sources) Malignant neoplasm of prostate; Translations: [Malignant tumor of prostate] Onset: 05-30-2022 Chronic Results Test Name Value Interpretation Reference Range Facility Pathology Sendout Teston Pathology Send Out. See Report [facility] Comment on above: Order Comment: PROST ATE BIOPSY-AREA OF INTEREST Performed By: #### 2 [id number] ####[facility] (DEFAULT)[address] [place] [address] Pathology Send Out. See Report [facility] Comment on above: Performed By: #### 2 [id number] ####[facility] (DEFAULT)[address] [place] [address] Pathology Send Out. See Report [facility] Comment on above: Performed By: #### 2 [id number] ####[facility] (DEFAULT)[address] [place] [address] Pathology Send Out. See Report [facility] Comment on above: Performed By: #### 2 [id number] #### [facility] (DEFAULT) [address] [place] [address] Pathology Send Out. See Report [facility] Comment on above: Performed By: #### 2 [id number] #### [facility] (DEFAULT) [address] [place] [address] Pathology Send Out. See Report [facility] Comment on above: Performed By: #### 2 [id number] #### [facility] (DEFAULT) [address] [place] [address] Pathology Send Out. See Report [facility] Comment on above: Performed By: #### 2 [id number] #### [facility] (DEFAULT) [address] [place] [address] Pathology Send Out. See Report [facility] Comment on above: Performed By: #### 2 [id number] #### [facility] (DEFAULT) [address] [place] [address] Pathology Send Out. See Report Normal [facility] Comment on above: Performed By: #### 2 [id number] #### [facility] (DEFAULT) [address] [place] [address] Pathology Send Out. See Report Normal [facility] Comment on above: Performed By: #### 2 [id number] #### [facility] (DEFAULT) [address] [place] [address] Pathology Send Out. See Report Normal [facility] Comment on above: Performed By: #### 2 [id number] #### [facility] (DEFAULT) [address] [place] [address] Pathology Send Out. See Report Normal [facility] Comment on above: Performed By: #### 2 [id number] #### [facility] (DEFAULT) [address] [place] [address] Pathology Send Out. See Report [facility] Comment on above: Performed By: #### 2 [id number] #### [facility] (DEFAULT) [address] [place] [address] Basophils Auto (Bld) [#/Vol] Ordered By: Pretty Key on 11-06-2023 Basophils (Bld) [#/Vol] 0.0 10*3/uL 0.0-0.2 [facility] Basophils/100 WBC Auto (Bld) Ordered By: Pretty Key on 11-06-2023 Basophils/100 WBC (Bld) 0.7 % . [facility] Calcium [Mass/volume] in Ser um or PlasmaOrdered By: Pretty Key on 11-06-2023 Calcium [Mass/Vol] 8.8 mg/dL 8.6-10.3 [facility] Carbon dioxide, total [Moles /volume] in Serum or PlasmaOrdered By: Pretty Key on 11-06-2023 CO2 [Moles/Vol] 27.0 mmol/L 21.0-31.0 [facility] Chloride [Moles/volume] in S khanh or PlasmaOrdered By: Pretty Key on 11-06-2023 Chloride [Moles/Vol] 107 mmol/L 98-107 [facility] Creatinine [Mass/volume] in Serum or PlasmaOrdered By: Pretty Key on 11-06-2023 Creatinine [Mass/Vol] 1.16 mg/dL 0.70-1.30 [facility] Eosinophils Auto (Bld) [#/Vo l]Ordered By: Pretty Key on 11-06-2023 Eosinophils (Bld) [#/Vol] 0.1 10*3/uL 0.0-0.45 [facility] Eosinophils/100 WBC Auto (Bl d)Ordered By: Pretty Key on 11-06-2023 Eosinophils/100 WBC (Bld) 2.3 % . [facility] Erythrocyte distribution wid th Auto (RBC) [Ratio]Ordered By: Pretty Key on 11-06-2023 Erythrocyte distribution width (RBC) [Ratio] 14.2 % 12.0-14.8 [facility] Glucose [Mass/volume] in Ser um or PlasmaOrdered By: Pretty Key on 11-06-2023 Glucose [Mass/Vol] 75 mg/dL 70-100 [facility] Comment on above: ADA recommended refe rence rangeRandom Glucose Reference Range is dependent on time and content of last meal. Glucose of more than 200 mg/dL in a nonstressed, ambulatory subject supports the diagnosis of Diabetes Mellitus. Hematocrit Auto (Bld) [Volum e fraction]Ordered By: Pretty Key on 11-06-2023 Hematocrit (Bld) [Volume fraction] 43.4 % 38.8-50.0 [facility] Hemoglobin [Mass/volume] in BloodOrdered By: Pretty Key on 11-06-2023 Hemoglobin (Bld) [Mass/Vol] 14.8 g/dL 13.0-17.0 [facility] Leukocytes [#/volume] correc harvey for nucleated erythrocytes in Blood by Automated counOrdered By: Pretty Key on 11-06-2023 WBC corrected for nucl RBC Auto (Bld) [#/Vol] 6.5 10*3/uL 4.1-10.5 [facility] Lymphocytes Auto (Bld) [#/Vo l]Ordered By: Pretty Key on 11-06-2023 Lymphocytes (Bld) [#/Vol] 1.5 10*3/uL 1.00-4.8 [facility] Lymphocytes/100 WBC Auto (Bl d)Ordered By: Azulleemily Key on 11-06-2023 Lymphocytes/100 WBC (Bld) 23.0 % . [facility] MCH Auto (RBC) [Entitic mass ]Ordered By: Pretty Key on 11-06-2023 MCH (RBC) [Entitic mass] 33.1 pg 27.5-35.2 [facility] MCHC Auto (RBC) [Mass/Vol]Or dered By: Pretty Key on 11-06-2023 MCHC (RBC) [Mass/Vol] 34.1 g/dL 32.5-35.6 [facility] MCV Auto (RBC) [Entitic vol] Ordered By: Pretty Key on 11-06-2023 MCV (RBC) [Entitic vol] 97.0 fL 83.5-101 [facility] Monocytes Auto (Bld) [#/Vol] Ordered By: Pretty Key on 11-06-2023 Monocytes (Bld) [#/Vol] 0.7 10*3/uL 0.0-0.8 [facility] Monocytes/100 WBC Auto (Bld) Ordered By: Pretty Key on 11-06-2023 Monocytes/100 WBC (Bld) 10.8 % . [facility] Neutrophils Auto (Bld) [#/Vo l]Ordered By: Pretty Key on 11-06-2023 Neutrophils (Bld) [#/Vol] 4.1 10*3/uL 1.8-7.7 [facility] Neutrophils/100 WBC Auto (Bl d)Ordered By: Pretty Key on 11-06-2023 Neutrophils/100 WBC (Bld) 63.2 % . [facility] No Panel InformationOrdered By: Pretty Key on 11-06-2023 Estimated GFR (CKD-EPI) > 60.0 mL/Min [facility] Creatinine Clearance (Chem N/A [facility] Nucleated erythrocytes [Pres ence] in Blood by Automated countOrdered By: Pretty Key on 11-06-2023 Nucleated RBC Auto Ql (Bld) 0.0 /100{WBC} 0-0.5 [facility] Platelet mean volume Auto (B ld) [Entitic vol]Ordered By: Pretty Key on 11-06-2023 Platelet mean volume (Bld) [Entitic vol] 7.8 fL 6.6-10.1 [facility] Platelets Auto (Bld) [#/Vol] Ordered By: Pretty Key on 11-06-2023 Platelets (Bld) [#/Vol] 219 10*3/uL 150-450 [facility] Potassium [Moles/volume] in Serum or PlasmaOrdered By: Pretty Key on 11-06-2023 Potassium [Moles/Vol] 4.3 mmol/L 3.5-5.1 [facility] RBC Auto (Bld) [#/Vol]Ordere d By: Pretty Key on 11-06-2023 RBC (Bld) [#/Vol] 4.47 10*6/uL 3.90-5.60 [facility] Serum or plasma anion gap de terminationOrdered By: Pretty Key on 11-06-2023 Anion gap [Moles/Vol] 9.3 mmol/L 6.0-15.0 [facility] Sodium [Moles/volume] in Ser um or PlasmaOrdered By: Pretty Key on 11-06-2023 Sodium [Moles/Vol] 139 mmol/L 136-145 [facility] Urea nitrogen [Mass/volume] in Serum or PlasmaOrdered By: Pretty Key on 11-06-2023 Urea nitrogen [Mass/Vol] 16 mg/dL 7-25 [facility] WBC Auto (Bld) [#/Vol]Ordere d By: Pretty Key on 11-06-2023 WBC (Bld) [#/Vol] 6.5 10*3/uL 4.1-10.5 [facility] Discharge Instructionson Discharge Instructions [id number]#1.00 [facility] Resultson 4 Lab - AP Results [id number]#1. [facility] Results [id number]#1. 00[facility] Lab - AP Resultson 4 Lab - AP Results [id number]#1. 00[facility] Discharge Instructionson Discharge Instructions [id number]#1. 00[facility] Coding Summaryon 08-07-2023 Coding Summary [facility] DatxtcjiBRh6gYr+PGhlY WQ+XZ7ZVQBcF10rvTBhiB 5uZ1GHKLlRZmcjIABFMEg UTnQsskSoIS7wuOJlQYZm IC8+MB7gZRXuQdmbaESyq 5C2tDQ5L79yap9yDIhbuW A0MJZpYqVqvunls9odmCo 6IDcuNmluOyBt PPVybM69NNU3yL79Ye85o GHgeUKxz8fnmSa4UaNwPA NvOHH8mOydUTeho8PeIQS kR05evGQlp5B1 JEUpoPkfgCWlIlMxbJV4d M7aTNegpbkpn7qlsohlVj q9yp11jPPpr3W3oZN9N2A fghU7MAFzkECd NnqgxCEGwI3pqkika6xln hosGqVjPQGxFWo8BEh5IM JyrTenDgBbIX02LTL7JYY uaxJyF3FfSIZj yZkxSvS2n9L3Cf1WU3LNI tswM4GCMJPWDNqwdSY+PC 85pd43N6IvNdykFwv6JXY kBJH9aPA4rT6f WEYsTAzvl6X0mYC9I0Vtw pKnck3py2myJPHzMWgfL3 3kxMSvz9U4WKUgyZS9UTJ slZnyHyJzxM58 Oyc+DALnpUwrr0AdPeccy 7lpv9doiSb0YomdTZIsyr IexYvoIVV5q4GuLy3iJAH ymOD9nWQ0uD2v JvBqAsE3VIqlL766HrKlg ITwEmvgC89aM1QnwER+PH SeWiv1FWVtjPwnOR1iC7P hZGRpbmctbGVm dGooRO6kWRVwxwalNOOtv G9hASSfH9s9XtRjJzF2BE heB3MlBBDipmvgYx52zE1 eOqKoGdS4YAze G5LqcuP7HVKceSFxMWaeO PM8I10np8E1BDGhUVHeQW C6vPA2hC7alFsprknthWZ mdDsgdmVydGlj WFkoHHywM501QKEnoKypZ kNvZGluZyBEYXRlOiAgMD QvMTgvMjAyNDwvdGQ+PHR yWGE6oLomTHXo yNHtEDdrAg7reZabzYeeY G4sPRGjypzaPLAvaK7mAC WvtUVzaNokUL6oQEMnqtv rc237ZdZrZRR3 FFZpkLBwI8UdzQ7xTnOaQ NQhLWLcO2QwpQHcJYzxF5 91FXblPlS1KNOjktMlK7U sLWFsaWduOiB0 p1P0Tm8Ze4WcqkkzX4Ymu QSgFxVzBudzSKo7C5PwXm wvdHI+DD53WXHiEP92ZEi 8EUL6yOysIZtd PQHkT1XbqI7tTtUvGTQaB GRkOyc+PHRhYmxlIHdpZH RoPScxMDAlJyBzdHlsZT0 nZc7xKSAaOPOl gQdzhYRzAbIjd8wgLCTkN LenQV2deKiwG1NctXX6BZ Awj6y6Gj02D20tW6QozAH +AYCfgCB8gIJ7 oO8iNdKhEyC6DDleO220F uYtjDSqBhhwm9lqd9hlfZ v7FyD9GMZulaEkpLltGPY 4n5OpCc26E55d IHdpZHRoPSIxNSUiIHZhb Azgth0jkO5qCy7+PGNvbC V1pCD7yN1eEjOmIaF5WTv dQ027OmLnkUYs Ibibl8pwu8sxvSg1DuDfX ZWyxtBznHfqCVZ4q3RkLt 06S4ApwTlci7AvInn0hl8 0kRObr0Q9dEZ0 G3QlIGIjaxactLHkrKqrM B0lXRNjfdsdCROklM7zLM YaK0l4XxMwHlN9LYkkQ7Y voxS4OZRotLJm GJGhjJPEjI6xmljve4jhl mmkLzLrPXUvCZp3UPt5FG JvzDghOzKpTGU5ZoU0AON 9yAVxxC3saZiq kunxyD2vOfh+RJR7oEXwl QNCLS6qYjuqiZS+PHRkIH Z9zDwcDZniAEKenL3tKYG cD6k9SnHoGkZ0 OCrlD2HpkiN3WVGfbSQzS MRllTCMhR1fgvska7jejv zvVeUvOJLbMCw1YAr1NMG saWduOiBsZWZ0 HoV8KAI5sOZhhC8vuDmgr fgbxF2bSbm+QmlydGggRG Z5SBp7E7UdXee3AAAcyHz rBG4uwEIaXEnz Vn9vqKiyfYqfJR0bIDVle ahio538VcKwi5qxUGPakQ LhHUiqHPD9D65gc0W8QYX hILJpBRN0zYW1 kM5glXhmghxjbRFqyFnqb xRfoSqaRViuQNyaD953MI OqeBljPmIkITa6R6HwPfw 0BTXwwMmbXA3e hYIbGKcnGd1irEduyEtbJ C0kLIAaybqpd312HoMxo6 wtNYJxqANyVEirIOB6C49 jj8B8KKKyZGJz IUT9tDQ7cG3mcApvcfrlv GVmdDsgdmVydGljYWwtYW pbM680RIBzxSwnJbZylQa 7Y7LbOmk5AUSv hXpuMY7zmMXpDEueDk8oc AzwsHrzED7nXCAeyjfah5 91FrJpm0lkZMAiwOAeQOh iDDG5O66od5J2 TXCxWTKeHEA9gZH2jS5tz GlnbjogbGVmdDsgdmVydG xjHFgdLNzaQ001KSFtkYx nPlBhdGllbnQg VDgoIIu0R1WcPcmoeUV+P Y42XAIaWV33mLLwzKYos6 dvxPa4GtPiHSTgNIW1mCa vDFcru2YeLLZw V35cnNNza1N9CTCvaTiwn HTcJtNjaXY7lD6dVCsrke xmb7fhdxycQlvlx7dgbc0 7hN64L94fNJyk ZHRoPSIzMCUiIHZhbGlnb d3ovC4sYk3+WVLyyEF4iU G7wC9cZXMuToE2UOvtG82 9InRvcCIvPjxj c0ssn7ypjWv0CsM3BYHtl bJygEchMFG8f7AjNm03Y6 9sIHdpZHRoPSIyMCUiIHZ kuNjrzu6yaJ3b Ii8+IMUjeLT3gEX8uB8vO lYmMzM5KMvgZ973BpGswK LoRwqrU93zO0EdnTJ+PHR tDdt9UAImaWob BQ2eeOFoWKdiFv8dNZA9W mVtHaKrAUxqU5HlQVLppx issvkfaKR5OMDzCPGykC4 5Ue7zoNfiQHFh tAGIwS9agsrla4yyeffvP wWxJDZaNYt9MPy2GYEcpM dhBgQwQMI7LaF5RDL9wMX vxZ3meTzasozl oE7aB2MiIBYbaoicYw97a P5oSvLfJqX8NHtjUwv+TU FHRVJTLCBTVEVQSEVOIEV GO5CUQNuttJU+ SFIqZFO8tBmoRGtwAHPku Z2zQQHsP7q0VtAsZyE7NT jsA9IlNXVuouygHr77yQ6 wLpZvYhU4IMgk T2GdpdZ3QDBcsULoOLszK SS9B80af0C8GFHhIFNuBM G5aDX7yX8dgHdcdimwzVI mdDsgdmVydGlj RTgnNWbqS091GSVikWmqT mAiTnE9MjT1LHg6B6UhRy n7UFOctFddFR1jqSBtSMn wBi9rzXspfKwc EW4bLCYssdzhERXzpY6dA FTkqWJviIjeOZ1jMTWhic nop647ZfXcYRU2KGNeySG sE9OceM9oIuCd ECQoFHMhZ0CkuZTaJIndY 738WLjeJpJ0SOMpczSsB2 HbMAWpxQlyDkC4i5B3Va5 3NSBZZWFyczwv dGQ+YYHyKCB1bQpoGYoiF AWsoX0jPYUcB1v3AbLvVh V4BZkiS4HzKARhdjxiSa4 1iD3cUjEmDyC5 JOzwA0NbxwG8BLIoaUSvL NjxLHX3B05le9M4JJHsYJ EsSXU6hIV2zW4dwWziwna gbGVmdDsgdmVy iVkkEKfvPKpmP026CWRuu WgsIw3NURY1J2OwQvc9LY VuvJpgGR3ouCVmWQcmYl7 lqBudvYmtMW8r TPXlucajGNYqvQ8gOXOal EViiUfdOQ7zAUEmluqoy2 02JxCfHPH0KELjpWEqL4I xuR4lVmBzNCOc DQQeK9NrfJQzRLynT682G BpgDwA2VTYlzaZeT0ZnTL AgbZtxAoX5z9B1Lt5HDOv sW3EoI5BjtQrm dGQ+ST35lq66Z9EtXqdzU gj4SHXfHNG0cXD9fV3aMQ WyDIhqf7I1yWN0K3AyvnF jgb7ne6qiKCJx BZdkD20utDPlh0R3COSgh XM4MDGkgYxdHuExrW63Pn c+DLIhoCvmk5IjMvcjl6v zp7khfDn6WhDv NABirbTsmHmaBSB2a4JnA n41U55eLNvoFAPlSOHzHN JoKNLtzZmyeq5txL8oPv2 +MBOkkZK6dEZ6 sD4fZeJgHbS5SFmaA919A fBolKHaNddpj8nko3lngK m5FtDpILBruaNjgUwhOUV 3f2KzWo44C6Qq aKvxh9PyGyg4vo51yWClc 8F3qPR9U4UrECBhrsjjpR FegFpeUK5uIHCanxvaOVS ypH0mSOUcJ8n6 YePiAlJ5AKznW6VmcuJ1U AQbvHPzLSMslLOVqJ2ugd fip6kjwtcqGdAsZLHzJAd 9FQy3FVBxcLjc HtJjJWT0RkH2WUE8pDDan N6xaSybnnqwnY8qArc+UG s3c4zrxMOlZD2tnBJ9BH4 8XT97xYSsm5P0 aDZ4J7TsXPAizqpmupbhw QZ7CGXmIZBnlN39Jx8gsE nvFg3xWEEiQCV2TOZlrKI hT7IubZ6uAzZx QOOdMAXhS0LocMGnGTxyR 718LDkcMvZ8MADofeToG4 ZcJCQgoRkxUeG7s5D0Np2 ZOQ31YJ33GA09 mETis5L9vVD7N0JlOGMxa hjhaxvywWH8DJFqQHUxfC 95Bb7fxEiyKz9oBIBsMEN 6TUDewXFtA5Nz pZ0iUlVrKBHpTJJiZ7Ipr MKmYMprQ243NBvkCxG3IB RtuzHpA9FjKCBdeRxyXfV 9i3A8Be6YKz94 CZ64GG19jLXca3I0aAV0H 8DlEOAbuxjnquwssFF8QQ LpUQMibR23Ml4zoGudOx0 jEWVmLVY7CVFd vJDgU6ChhA2jTjEfVAGxU WFqV1OayYNcRUdwG672UB eaWbO2MRWjpgKcC7FkFVS afGqwXnK1q3F3 Te3PAPwbkcx0D1PeEosxa HI+HV82EPNrIK49oEPzcZ Jok8dpaPa5OuYyJGLhSUS 6bIavUCysj6Cj ZXI (more content not included)... [facility] - AP Resultson Lab - AP Results [id number]#1. [facility] Operative Report - Surgeon/P hysicianon 08-05-2023 Operative Report - Surgeon/Physician [id number]#1.00 [facility] Operative Report - Surgeon/Physician [id number]#1.00 [facility] Provider Orderson 08-05-2023 Provider Orders [id number]#1.00 [facility] Anesthesia Noteon 08-01-2023 Anesthesia Note [id number]#1. 00[facility] Consent Formson 08-01-2023 Consent Forms [id number]#1.00 [facility] PostAnesthesia Noteon 2023 PostAnesthesia Note [id number]#1. 00[facility] Inpatient Patient Summaryon 07-31-2023 Inpatient Patient Summary [id number] [place] [address] Patient Discharge Instructions Name: ROCKY MCMANUS : 1950 Patient Address: [address] [place] [address] Primary Care Provider: Name: DHAVAL CHOE JR. After you are discharged if you find you have any questions, please, call [phone] ext [phone] to speak to a nurse. Discharge Diagnosis: Prescription Information: If you have been given a prescription for narcotics, seek immediate medical attention if you have any difficulty breathing or any sudden status changes such as confusion and sleepiness. If you or anyone you know is experiencing suicidal thoughts, mental health, alcohol and/or drug addiction problems; contact the [facility] 11/11 Crisis Hotline -Text 4HCOU mi 319855. If you received any narcotics, sedation, or [...] business decisions or sign any legal documents [facility] would like to thank you for allowing [...] middle ear (otitis (more content not included)... Normal [facility] MAGR Intraoperative Recordon 07-31-2023 MAGR Intraoperative Record MAGR Intra-Op Record Summary Primary Physician: Bradley Miller MD Finalized Date/Time: 07/31/23 12:34:22 Pt. Name: ROCKY MCMANUS/Sex: 1950 MALE Med Rec #: [id number] Physician: Bradley Miller MD Financial #: [id number] Pt. Type: D Room/Bed: / Admit/Disch: 07/31/23 [...] Role Performed Surgeon - Primary Anesthesiologist of Main Line Assembler Record Time In 07/31/23 11:43:00 07/31/23 11:33:00 07/31/23 11:33:00 Time Out 07/31/23 11:50:00 07/31/23 11:55:00 07/31/23 11:55:00 Procedure Biopsy Prostate Biopsy Prostate Biopsy Prostate Last Modified By: Dana Mejias RN, Diane RN Kokinda, Diane RN 07/31/23 12:04:37 07/31/23 12:04:37 07/31/23 12:04:37 Entry 4 Entry 5 Case Attendee Yoly Toure FIGHTING VEHICLE INFANTRYMAN Anita, Janki ALMONTE FIGHTING VEHICLE INFANTRYMAN Role Performed Scrub Personnel Manager Hris Time In 07/31/23 11:33:00 07/31/23 11:33:00 Time [...] Santiago MD, Dana Mejias RN, Yoly Toure FIGHTING VEHICLE INFANTRYMAN, Janki Howard FIGHTING VEHICLE INFANTRYMAN Last Modified By: Dana Mejias RN 07/31/23 [...] Im.320 Manages (more content not included)... [facility] Postoperative [facility] MAGR Phase II Record Summary Primary Physician: Bradley Miller MD Finalized Date/Time: 07/31/23 12:57:05 Pt. Name: ROCKY MCMANUS/Sex: 1950 MALE Med Rec #: [id number] Physician: Bradley Miller MD Financial #: [id number] Pt. Type: D Room/Bed: / Admit/Disch: 07/31/23 [...] Signed By: Zayra Chavez RN 07/31/23 12[facility] MAGR Preoperative Record MAGR Pre-Op Rec ord Summary Primary Physician: Bradley Miller MD Finalized Date/Time: 07/31/23 12:57:39 Pt. Name: ROCKY MCMANUS/Sex: 1950 MALE Med Rec #: [id number] Physician: Bradley Miller MD Financial #: [id number] Pt. Type: D Room/Bed: / Admit/Disch: 07/31/23 [...] consent correct. General Comments: Patient arrives to [facility] ambulatory. Denies chest pain, cough, cold, COVID like symptoms. Denies diabetes, pacer/defib, sleep apnea. Patient verbalizes understanding of post op orders and instructions. Finalized By: Zayra Chavez RN Document Signatures Signed By: Zayra Chavez RN 07/31/23 12:57 [facility] Patient Handouton 07-31-2023 Patient Handout [facility] Progress Note - Nurseon 07-20 Progress Note - Nurse Spoke with pt and informed him that he needs to be here at 0830 and NPO after MN, he verbalizes understanding. [Electronically Signed on: 07/30/2023 11:54 EDT] Moises Atkins RN [Verified on: 07/30/2023 11:54 EDT] Moises Atkins RN [facility] Coding Summaryon 07-14-2023 Coding Summary HTMLBase 64 CmvgixfsWBh1pUm+PGhlY WQ+UZ2RXIFlE18igAUawG 9vA4NOOOaWHnrnHKKYLUu CNxUdekFpIS7szJPzQWIj IC8+IW6bCYXvOjtgyBXbj 1R8uHC4Q35tau7gMTpsyQ A7FJWyHxFiqixkq9iabYy 6IDcuNmluOyBt HKRutV97AQX0zO09Nj72s POjcFSsm1tcnLt6LxObUP JbYTP1oQawGDcvc4ZhFOQ uL62pcMCjo4J8 XPTaqIwngNBgJvWfrGF1w F7hWKwcewwai9akeiknTs k4ld83qMMxz5S6jMQ9H2P gynF0ZWLswTRm GywypHOTqR2ggevml6mph erzQxLmLYUaHEm7GNs9VI JcqIqlJiYeDK65ISB4SQV uwkPeO4WsWZKp sIaiBjK2m3K7Ly2OT8ZDY pjdQ7OWLBUQALeqtUM+PC 76cp13U0RkWzqcBfs0FVH sFQK5cUZ6uG6j CDGhLXqib9A1hNM1E5Dxk xEddb2ne7lzKSTlDTvsC0 1wvAPaj2J2XIAffYE3JCK tkKhwHcDnxH24 Oyc+KYDrpFoqg4JxSzcpf 6xoc3lkrGe4ZvdiCDGuol OqqTqtSXP4w7IvRr5dRBN aqXH1yFH3sM2m YpZjRhK2EInqI630JvQbe RQgReyfT85oV8PapCU+PH YhHsa1PPKhrAmfRY1uH8Q hZGRpbmctbGVm qHqdLH3eEJNmnvznBPWvv A7zAQQxO0b4VaZsXbM4RD dsH3AmWEChlienEk38oG7 bMvWnIpV7QZaq Z1OldpO9QNFjyMUoUTexI KC6D81fo7T1LFIfCYEoUC P2uTU2fJ2vpDbabucynEA mdDsgdmVydGlj VWagGTxlW946JFDtnZdfS kNvZGluZyBEYXRlOiAgMD MvMjUvMjAyNDwvdGQ+PHR tNRY2iHviVZEz sEWcCYwmTu3ehBzsiByaZ P5oOBCaqeaiRMJzqJ6pNU RlnMNfoPyoOC3rEPVxsyw kz907AbFmGLB5 NRAegNCuN7DhaN9kBhEcF EGnYTItM5VqyJZtMHwaG8 90SWerXyS9QUJwfsUrQ2R sLWFsaWduOiB0 j0Y7Zp4Oc3ItogogM5Fng RKtTrFpTkqdZJf2U9VcRr wvdHI+TH60GAPyWV51CTc 3NYF6cSekGHcv FJXfS3XeyK1qYgKiOKUhX GRkOyc+PHRhYmxlIHdpZH RoPScxMDAlJyBzdHlsZT0 hVk2jUXDrYRYp xJfhtVFbSdDzi2fhCSCdG UksHY7cdSouM1KszQE8NY Wuc1e9Ge72N07oR1YltGG +JXTuhVQ0rEL3 cR2aWpUbTlO1JKbmJ683Q jHipQBxLwfvw6jcw4qidB u6MiV2HYQbtpKjvYzoXXB 3z0LxWk91S44s IHdpZHRoPSIxNSUiIHZhb Jnnpo7tbB6tHz2+PGNvbC M4vUZ4qI5qHbLvVaN0CMy yI831PcOgxOGi Rkhca3cgt7oaoSm2DlGaG HSjnyXpxZekERZ4q1UgQk 26M1OlbSvve1MgDtb4ma4 4nXQtn1D6tRE1 E7UdSBIlodovgSLsxWjaC H8pCBVxymksRXQygS0dPO WwW7m5ZrUkNmT0SGwpA4T esoA6EWAtjWPp CAWgaYQDkT9dtfcxh1xik yszBtYwGRIfCIw4LVa5VJ WaoDomDjEmLTW0EvR8CSA 5sBHaiX3fzVbj hpcciN4qDic+GUV7vEVia RFHRS2iFfwoxQU+PHRkIH Q8nDkaBJstZIHoxO9gHSI gL9l1BeOhLiZ8 QSiaD8HvqqP9QKMblYSzS UAtnGSOpF8aeghpr2ermc goWqChUIXdOAl0TXc0GZD saWduOiBsZWZ0 NmJ4MCD2qLIabC2htTwyz xvuuX4cUcy+QmlydGggRG R2XJy6V5VkErr6SBTehJu pZD0ygBJeSMoz Wj4alPqkaTyoDV4qLHZgi diao513ViJqk5khFGFacS XiPZqfULO4L27vc4H2OAS wAMIyZBY9uVQ0 bZ0hsEpdjhmfpCVhlBxvy xVfkLtjGNnvGGbsG543DT WozJgxKuMcSBo1J8DdUsc 0NMYaiNuqWK5n lALiLFvbCm0mkDiwsSkdA J8oIORybqdnb155OqFac9 rdPXQngGMdPWpvXWB4N39 qp0O2MGMuLIAs LGQ8zHO9pF8ryPbovlqhw GVmdDsgdmVydGljYWwtYW uzJ861RHClfHweZiZxsQb 6P0DwJut0SSFh yAzpSW8gxUWyRLueEs7ou ZnjlXxfGV2sFQPxogdqh7 93QfTpr8wjZPVcuDTdBGl pNTC3O76ln4Z8 ZRRaPKMzBBR7hNI4qO2ze GlnbjogbGVmdDsgdmVydG qbYCujDAfwG380MKFanUk nPlBhdGllbnQg DVzvELs6G4TaKuehqAN+P Y73BYYxWG48tWZnwHNqz3 hspHz4SvZdFMIhJVT8gIu jVYago8JyOARa P39npRKgc9U5BZMjwZsgg OByXbJejGB1oC2tAUogvl umn7mopblpVigsc5mssm3 9wM29O29gNSjn ZHRoPSIzMCUiIHZhbGlnb b5vwO2fEk5+FKSlmGS9lQ Z4qA6nBEKwFyJ5GUbzM99 9InRvcCIvPjxj r3wts6dweUs8CnJ6NCBoq vPfhWxhNLM9m7UkPg58C7 9sIHdpZHRoPSIyMCUiIHZ frWedfk9vzM0y Ii8+LKLojNR4gVZ4cW0eZ gZwWmS0EKcoU654PhWaxS NnUbksO34tO3UyjAH+PHR qRgz1XDIhzBnm XM7csHSmSAvpUw1nRVN0M oRyYsHjVFvmZ3QhRMPhcz qyfakkhDT8STEhXRYxuJ1 3Nk2wjXgwWSEk vMWRiB2owjmwy4avixlrA tArMDAuHWt2OZj7HQPmmU wyOxYzUQZ1VnT8UWM7bLQ bcB1niOxnzntx zW0hL9JqGHXomcmuZi32h X5gIrXwVhM3KPlmRcz+TU FHRVJTLCBTVEVQSEVOIEV VR5YDKLyhsVL+ VDHjGXA1hTeeMZelRJKpw Z9mTLYjH0h7ZxLcRdE7OL daH3LmSFToyyywFy38mV5 nNvMhPtJ1DDyb U5TszyN2VBRnuVTxTXgcJ QA1T29ab8I6AFAjQAIfTP C6cVC9bN5adHiwdrbowQE mdDsgdmVydGlj XAbpJKgcB826XSRnnWbiD sPpWaM6GdP9KNn1W3UpZw i1PBQcpZouLX7vbARxEYa dNp7grMfhrHom PP9wKLIidagnDONstZ9fK TUjvRXtgChxTT3kTKJkmp fpr221VaFvZOU6BMNpeMN aK2QluO5dLvRg YVWsKSCzT4IosBSjXPdgU 900DBwcUpA2JQMwxyLtT6 UyZZTmcUafViS6y4I9Kt9 3NSBZZWFyczwv dGQ+PLBnZTN6eCfiNOedT YIyqP4jVBQiD6k1ZjWnTm B9YDwgM9GrVORiybaoYn6 2pD8jByIyBxY0 ZTljH1IvwmU8IPJohMQyI IolKTQ4O36ic1C6AJGeTG LnKOS5uDW1iL7ouBwuycg gbGVmdDsgdmVy eUdhQGzfZAdzL779OZXom JxfIv3KDQG8Z5RvBoj3VG JqrWqnNP5foEHbBMzpKd9 kiBozpIehKL1v XFRaoolbXUFtaD0hKJMai BNtuRpfRE1dJXAwhchmd7 14CnEzSFD8MCAmoRCaR7K jaZ1rIdZpKJBz VDPrF3QcsVQwHNthY247V BzaEjY6RRJgcqJoA3JkOG XupQgyTjL2z2O1Pe7IMEy vdGQ+HN01bz56 B9UzHxjcVru3ISGnJVU1l EQ2xO4cHSTtMHisb8Y5aI Y8V7WmkpIssa1fx8sdJJL pFVnvJ54goPGu l3K1OPMxkDY2JBXbnNvcV cWrhX38Lhh+PGNvbGdyb3 JhBrtar1nfr2webSt3DcO wJSIgdmFsaWdu JFY2f8AvDn45L98xOZawK HRoPSIzMCUiIHZhbGlnbj 9gcZ9rOi9+UEUdiZI1xRW 1vM0sLfHzYdT1 XIxoV026HsIhmQWgDuhxp 8kqy0drjGa4AeYrIHQqgi VmxSunBOJ4b9KnFr39X2J upYwwv4KcDyq5 ks64bXEib6U3tCL9X7ZjD PHunechxAJueUyxCM0bHU LyvxwhDTYwyX3hOETgM8v 7ErGxAeC3LHhx G6BucbR4VAQqgBKnLZQqa MVIbJ4maplbn2mdeakoOo AmFDRzVWw8XAg2UBItfPb nUtZyDIB5QaG8 HJK9yAWhzF4iuEfcaldui G9wOyc+ZUj1q4pirBRnHT 2qdVX7XN35CK42mVOae3Y 1kCU9N8EnUXTg staltilriVL4TBCjKYVjj F12Ai0dxLtcJp2sZGMrWF Z9NSQsqKQuD1RyvE0xJiV mIIHgGELcO1Se fRUfGDwyY009BKndVpH9I YHkznRnB1AjZPCgvVeoIs H4g6P2Kh2NLK72FU98PO0 1rJBbx1V5tSO9 A6JeNFFhdvwrwwteiDM2D OGfQIBzkQ53Ce9itJgjYr 4yWJWrBAA8JAJpqPPmL3N keT7pIaRzITDz KGPzB9KtmTHhXPpwX502X TzkPaT8CSVqbxCjC8LvIV KnxYdiKsM5z6G6Hy2AQa6 9SJ64BT71gPZi u5P9gJP1F9RjALNeljjiy kxgwDM4TCDqZQHheB41Cb 7lyEwvCk3sPKOzNVK5CUG krYTzZ5LhaQ5s VkHvLEJrZTFaN0DqeBQtW VolU455PQmyWwX6JQGwsg TqH7JtEFYkvAftHpP7b2B 8Bx6MCMzggqj9 D0TwEkudvLQ+FR92OGTpT G76zIYktKHsz0squEm0On TlXLFcUKJ7dLvnMBklj3W wKEZfX56xwLQo c2U (more content not included)... [facility] Progress Note - Nurseon 06-20 Progress Note - Nurse PAT chart for 07-31-2023 surgery reviewed by anesthesiologist Dr Shaw on 07-10-2023- patient ok/ no orders received. [Electronically Signed on: 07/10/2023 13:31 EDT] Sabrina Clark RN [Verified on: 07/10/2023 13:31 EDT] Sabrina Clark RN [facility] MRI PROSTATE W WO CONTRASTon 07-01-2022 MRI PROSTATE W WO CONTRAST EXAMINATION: MULTIPARAMETRIC MRI OF THE PROSTATE WITH AND WITHOUT CONTRAST 07/01/2022: TECHNIQUE: Multiparametric imaging with dynamic contrast enhanced imaging and diffusion weighted imaging was performed. Double the Donation was utilized in analysis of images. COMPARISON: [...] Dylan Branch MD 07/01/22 Final result Normal [facility] Surgical Pathologyon 29-2 022 Surgical Pathology (NOTE) [id number] [facility] [employer] [facility] CONSULTING PATHOLOGISTS [facility] [address] [place] [address]. [place] [id number] SURGICAL PATHOLOGY CONSULTATION Patient Name: ROCKY MCMANUS MR#: [id number] Specimen #[id number] Procedures/Addenda MOLECULAR PATHOLOGY REPORT Date Ordered: 08/13/2021 Status: Signed Out Date Complete: 08/13/2021 By: César Mendoza D.O. Date Reported: 08/13/2021 INTERPRETATION AT THE REQUEST OF DR. BRADLEY MILLER, BLOCK C1 WAS SENT TO [facility] FOR DECIPHER PROSTATE BIOPSY GENOMIC SKETCH LINER TESTING. THE RESULTS ARE FOLLOWS: DECIPHER SCORE: 0.34 GENOMIC RISK IS: LOW RISK OF METASTASIS WITH RT OR RP: 5-YEAR: 0.5% 10-YEAR: 1.3% RISK OF PROSTATE CANCER MORTALITY WITH RT OR RP: 15-YEAR: 2.6% RISK OF ADVERSE PATHOLOGY: AT RP: 16.3% PLEASE SEE [employer]' COMPLETE REPORT FOR DETAILS. César Mendoza D.O. [...] GROUP 1 César Mendoza, Electronically Signed Out [facility]07/19/2021 Clinical Information Pre-op Diagnosis: ELEVATED PSA [...] were seen in intradepartmental consultation (SLS) for it quality analyst purposes. Normal [facility] Comment on above: Performed By: #### P PPVS #### [place] [address] Field Naturalist: Murtaza Tejada MD MRI PROSTATE W WO CONTRASTon 06-21-2021 MRI PROSTATE W WO CONTRAST EXAMINATION: MULTIPARAMETRIC MRI OF THE PROSTATE WITH AND WITHOUT CONTRAST 06/21/2021: TECHNIQUE: Multiparametric imaging with dynamic contrast enhanced imaging and diffusion weighted imaging was performed. Double the Donation was utilized in analysis of images. COMPARISON: [...] Dylan Branch MD 06/21/21 Final result Normal [facility] Vital Signs Date Time Vital Sign Value Performing Clinician Faci dorina 11-18-2023 11:20-0400 Diastolic blood pressure 71 mm[Hg] JR Dhaval Choe Work Phone: [facility] 11-18-2023 11:20-0400 Heart rate 50 /min JR Dhaval Choe Work Phone: [facility] 11-18-2023 11:20-0400 Respiratory rate 16 /min JR Dhaval Choe Work Phone: [facility] 11-18-2023 11:20-0400 SaO2% (BldA) [Mass fraction] 96 % JR Dhaval Choe Work Phone: [facility] 11-18-2023 11:20-0400 Systolic blood pressure 123 mm[Hg] JR Dhaval Choe Work Phone: [facility] 11-18-2023 10:18-0400 Body temperature 97.5 [degF] JR Dhaval Choe Work Phone: [facility] 11-18-2023 10:18-0400 Inhaled oxygen flow rate 6 L/min JR Dhaval Choe Work Phone: [facility] 11-18-2023 08:13-0400 Body mass index (BMI) [Ratio] 26.5 kg/m2 JR Dhaval Choe Work Phone: [facility] 11-18-2023 07:55-0400 Body height 177.8 cm JR Dhaval Choe Work Phone: [facility] 11-18-2023 07:55-0400 Body weight 84 kg JR Dhaval Choe Work Phone: [facility] 11-04-2023 08:47-0400 Body height 177.8 cm [facility] 11-04-2023 08:47-0400 Body mass index (BMI) [Ratio] 26.8 kg/m2 [facility] 11-04-2023 08:47-0400 Body temperature 97.3 [degF] [facility] 11-04-2023 08:47-0400 Body weight 84.82 kg [facility] 11-04-2023 08:47-0400 Diastolic blood pressure 80 mm[Hg] [facility] 11-04-2023 08:47-0400 Heart rate 50 /min [facility] 11-04-2023 08:47-0400 Respiratory rate 16 /min [facility] 11-04-2023 08:47-0400 SaO2% (BldA) [Mass fraction] 99 % [facility] 11-04-2023 08:47-0400 Systolic blood pressure 147 mm[Hg] [facility] 07-17-2021 14:35-0400 Body temperature 97 [degF] Bradley Miller MD Work Phone: [facility] 07-17-2021 14:35-0400 Diastolic blood pressure 73 mm[Hg] Bradley Miller MD Work Phone: [facility] 07-17-2021 14:35-0400 Heart rate 54 /min Bradley Miller MD Work Phone: [facility] 07-17-2021 14:35-0400 Respiratory rate 13 /min Bradley Miller MD Work Phone: [facility] 07-17-2021 14:35-0400 SaO2% (BldA) [Mass fraction] 96 % Bradley Miller MD Work Phone: [facility] 07-17-2021 14:35-0400 Systolic blood pressure 138 mm[Hg] Bradley Miller MD Work Phone: [facility] 07-17-2021 11:19-0400 Body height 177.8 cm Bradley Miller MD Work Phone: [facility] 07-17-2021 11:19-0400 Body mass index (BMI) [Ratio] 26.83 kg/m2 Bradley Miller MD Work Phone: [facility] 07-17-2021 11:19-0400 Body weight 84.82 kg Bradley Miller MD Work Phone: [facility] Encounters Encounter Date Encounter Type Care Provider Facility Start: 12-08-2024 Registered Recurring Pretty frey MD -[facility] Work Phone: Start: 12-08-2024 End: 12-08-2024 ambulatory Dhaval Choe JR Work Phone: [facility] Work Phone: Start: 12-08-2024 End: 12-08-2024 Patient encounter procedure Yaima Chang MD -[facility] Work Phone: Start: 11-15-2024 Registered Recurring Pretty frey MD -[facility] Work Phone: Start: 11-15-2024 End: 11-15-2024 ambulatory Dhaval Choe JR Work Phone: [facility] Work Phone: Start: 11-15-2024 End: 11-15-2024 Patient encounter procedure Brielle Duval Handy JOHNSON -[facility] Work Phone: Start: 10-27-2024 Registered Recurring Pretty frey MD [facility] Acute Work Phone: Start: 10-27-2024 End: 10-27-2024 ambulatory Dhaval Choe JR Work Phone: [facility] Work Phone: Start: 10-27-2024 End: 10-27-2024 Patient encounter procedure Yaima Chang MD -[facility] Work Phone: Start: 07-12-2024 Registered Recurring Dhaval lozada JR Work Phone: [facility] Acute Work Phone: Start: 07-12-2024 End: 07-12-2024 ambulatory Dhaval Choe JR Work Phone: [facility] Work Phone: Start: 07-12-2024 End: 07-12-2024 Patient encounter procedure Dhaval Choe JR Work Phone: [facility] Amb[facility] Work Phone: Start: 01-13-2024 End: 01-13-2024 ambulatory JR Dhaval Choe Work Phone: [facility] Work Phone: Start: 01-13-2024 End: 01-13-2024 Patient encounter procedure JR Dhaval Choe Work Phone: [facility] Work Phone: Start: 12-17-2023 Registered Recurring Earl promise Choe Work Phone: [facility] Acute Work Phone: Start: 12-08-2023 Non-patient / Non-visit JR Miya santiago Valone Work Phone: [facility] Work Phone: Start: 12-05-2023 Non-patient / Non-visit JR Miya pamela Valone Work Phone: [facility] Work Phone: Start: 11-20-2023 Non-patient / Non-visit JR Miya Choe Work Phone: [facility] Work Phone: Start: 11-18-2023 Non-patient / Non-visit JR Miya santiago Valpoly Work Phone: [facility] Work Phone: Start: 11-18-2023 End: 11-18-2023 Admission to same day surgery center JR Dahval Choe Work Phone: [facility] Start: 11-18-2023 End: 11-18-2023 ambulatory JR Dhaval Choe Work Phone: [facility] Work Phone: Start: 11-06-2023 End: 11-06-2023 ambulatory JR Dhaval Choe Work Phone: [facility] Work Phone: Start: 11-06-2023 End: 11-06-2023 Patient encounter procedure JR Dhaval Choe Work Phone: [facility] Work Phone: Start: 11-06-2023 Registered Recurring JR Earl Choe Work Phone: [facility] Acute Work Phone: Start: 11-04-2023 End: 11-04-2023 ambulatory [facility] Work Phone: Start: 11-04-2023 End: 11-04-2023 Patient encounter procedure [facility] Work Phone: Start: 07-31-2023 End: 07-31-2023 ambulatory JR Dhaval Choe Work Phone: [facility] Work Phone: Start: 07-31-2023 End: 07-31-2023 Departed Referred JR Dhaval Choe Work Phone: [facility] Path [facility] Start: 07-31-2023 End: 07-31-2023 ambulatory daniel Miller Facility:[facility] Start: 07-01-2022 End: 07-04-2022 ambulatory [facility] Start: 05-30-2022 End: 05-31-[address] DOCTOR ISBELL Facility:[facility] Start: 09-24-2021 End: 09-25-[address] DOCTOR ISBELL Facility:[facility] Start: 07-17-2021 End: 07-17-[facility] Start: 07-17-2021 End: 07-17-2021 Subsequent hospital visit by physician Bradley Miller MD Work Phone: [facility] Start: 06-21-2021 End: 06-24-2021 ambulatory [facility] Procedures Date Procedure Procedure Detail Performing Clinician Start: 11-20-2023 MRI of prostate for radiotherapy planning JR Dhaval Choe Work Phone: Start: 11-18-2023 Cystoscopy JR Dhaval Choe Work Phone: Start: 05-30-[address] DOCTOR ISBELL Comment on above: Performed By: #### P SAD #### [facility] [address] [place] [address] Dr. Karly Lowe Start: 09-24-[address] DOCTOR ISBELL Comment on above: Performed By: #### P SAD #### [facility] [address] [place] [address] Dr. Karly Lowe Plan of Treatment Date Care Activity Detail Author Start: 07-12-2024 Patient referral [facility] Work Phone: Start: 11-18-2023 [facility] Start: 11-18-2023 [facility] Start: 06-21-2022 Creatinine measurement Creatinine [facility] Start: 07-17-2021 End: 07-17-2021 Prostate needle biopsy any approach PROSTATE BIOPSY DX ELEVATED PSA 07/17/2021 1:22 PM EDT [facility] Start: 12-20-2020 Influenza vaccination Flu vaccine (# 1) [facility] Start: 12-15-2020 COVID-19 Vaccine (3 - Booster for Moderna series) COVID-19 Vaccine (3 - Booster for Moderna series) [facility] Start: 05-11-2013 Potassium monitoring Potassium monit oring [facility] Start: 2013 Pneumococcal 65+ yea rs Vaccine (1 of 1 - PPSV23) Pneumococcal 65+ years Vaccine (1 of 1 - PPSV23) [facility] Start: 1998 Shingles Vaccine (1 of 2) Shingles Vaccine (1 of 2) [facility] Start: 1993 Screening for malign ant neoplasm of colon [facility] Start: 1967 DTaP/Tdap/Td vaccine (1 - Tdap) DTaP/Tdap/Td vaccine (1 - Tdap) [facility] Start: 1960 Depression Screen Depression Screen [facility] Start: 1958 Lipid panel Lipid screen [facility] Start: 1948 [facility] End: 07-18-2021 Blood glucose - POCT Blood glucose - POCT Point of Care Testing Routine One Time for 1 Occurrences starting 07/18/2021 until 07/18/2021 [facility] [employer] Phone: Comment on above: One Time for 1 Occur rences starting 07/18/2021 until 07/18/2021 Computed tomography for radiotherapy planning [facility] Continuous pulse oximetry Pulse oximetry, continuous Respiratory Care Routine Every 4hr until discontinued starting 07/18/2021 [facility] [employer] Work Phone: Comment on above: Every 4hr until disc ontinued starting 07/18/2021 MR Prostate WO and W contrast IV [facility] Patient Education Marlo sigala (DC) Know your Meds [facility] Work Phone: Patient referral [facility] Work Phone: Surgical Pathology Surgical Path ology Lab Routine Release Upon Ordering for 1 Occurrences starting 07/17/2021 [employer] Phone: Comment on above: Release Upon Orderin g for 1 Occurrences starting 07/17/2021 Surgical Pathology Surgical Path ology Lab Routine Release Upon Ordering for 1 Occurrences starting 07/17/2021 [employer] Phone: Comment on above: Release Upon Orderin g for 1 Occurrences starting 07/17/2021 End: 07-17-2021 SURGICAL PATHOLOGY REPORT SURGICAL PATHOLOGY REPORT Lab Routine Once for 1 Occurrences starting 07/17/2021 until 07/17/2021 [employer] Phone: Comment on above: Once for 1 Occurrenc es starting 07/17/2021 until 07/17/2021 End: 07-18-2021 Urine , POCT Urine , POCT Point of Care Testing Routine One Time for 1 Occurrences starting 07/18/2021 until 07/18/2021 [employer] Phone: Comment on above: One Time for 1 Occur rences starting 07/18/2021 until 07/18/2021 [facility] Immunizations Immunization Date Immunization Notes Care Provider Fa cility 07-15-2020 COVID-19, Moderna, Primary or Immunocompromised, PF, 100mcg/0.5mL Bradley Miller MD Work Phone: [facility] Work Phone: 06-18-2020 COVID-19, Moderna, Primary or Immunocompromised, PF, 100mcg/0.5mL Bradley Miller MD Work Phone: [facility] [employer] 06-17-2020 COVID-19 [id number] (Moderna) JR Dhaval Cohe Work Phone: [facility] Payers Date Payer Category Payer Self-pay [id number] 1961 Private Health Insurance [id number] 1950 Unknown [id number] 1950 Unknown [id number] 1950 Unknown [id number] 1950 Unknown [id number] 1950 Unknown [id number] 1950 Unknown [id number] Unknown HCAP/HFA/FAP Active [id number] Unknown [id number] Social History Date Type Detail Facility Start: 07-17-2021 End: 11-18-2023 Tobacco smoking status ORIS Never smoked tobacco [employer] Phone: Start: 07-17-2021 Tobacco use and exposure Smokeless tobacco non-user [employer] Phone: Start: 07-17-2021 Alcohol intake Current drinke r of alcohol (finding) [employer] Phone: Start: 07-17-2021 History SDOH Alcohol Comment daily 3-4 beers a day [facility] Work Phone: Start: 1950 [facility]: Start: 07-07-2021 End: 07-17-2021 Exposure to SARS-CoV-2 (event) Not sure [employer] Phone: Start: 1950 Sex Assigned At Male F [facility] Start: 07-12-2024 Sex Male (finding) [facility] Medical Equipment Procedure Code Equipment Code Equipment Origin al Text Equipment Identifier Dates Cystoscopy with insertion of fiducial markers and hydrogel rectal spacer BARRIGEL PROC KIT FDA Start: 11-18-2023 Cystoscopy with insertion of fiducial markers and hydrogel rectal spacer Imaging lesion localization marker, implantable )[id number] FDA Start: 11-18-2023 Cystoscopy with insertion of [...] spacer BARRIGEL PROC KIT FDA Start: 11-18-2023 Goals Date Patient Goal Desired Activity /State Clinical Notes 07-17-2021 to 12-08-2024 Note Date & Type Note Facility 12-08-2024 Progress note Note Date/Time December 08, 2024 12:[address] [place] [address] [place] [address] Genetics Follow Up Note Signed Patient: Rocky Mcmanus MR#: [id number] : 1950 Acct:[id number] Age/Sex: 74 / M Type: REG AMB Date of Service: 12/08/24 Copies to: MD Dhaval Fitzpatrick Jr, DO [place] MD~ Genetics Follow Up Rocky Mcmanus is a 74 yo male referred due to his diagnosis of prostate cancer and family history of cancer to discuss genetic testing options. Mr. Mcmanus was initially seen in the [facility] 10/27/24 for counseling and coordination of genetic testing. Based on his personal and family history of cancer, the [facility] BRCA1/2 analyses with [employer] [facility]dens[employer] panel from was ordered. He was seen on 12/08/24 to review his results. RESULTS: Mr. Delgado?s genetic testing DID NOT show any known pathogenic (known harmful, cancer-causing) mutations in any of the genes which were examined. 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 The VUS is located at p.A264G on one copy of the FH genes. As discussed, a VUS is a change in the gene from the typical expected result that is not known if itis: (a) harmful and associated with increased cancer risk, or (b) benign and not associated with increased cancer risk. Over time, as new knowledge is gained, a genetic testing laboratory may be able to reclassify the VUS as either benign or pathogenic. We will let him know if anamended report is ever issued. The reclassification process does not usually happen very quickly, and the process sometimes takes years. More often than not,a VUS is reclassified as benign (or likely benign), but sometimes a VUS is reclassified as pathogenic. A pathogenic gene change is one that would have significant implications for him as the original patient tested, as well as for family members. At this time, since this gene change is a VUS, this means that we cannot make any medical management recommendations based on it. We must use personal and family history to guide his care and the care of relatives. Discussion Negative genetic testing results can be explained by several possibilities: - It is estimated that a small percentage of gene mutations are not identified by current testing technology. This negative test result makes a hereditary breast cancer syndrome less likely, but it cannot rule one out completely. - There could be other genes that may increase the risk for cancer for which there is no testing available at this time. - The cancer in the family is not due to an inherited risk factor, and instead is sporadic or due to chance. Mr. Mcmanus? results were negative, which do not support the use of a PARP inhibitor, however somatic genetic testing on the tumor, if not already performed, may also be useful in determining if a PARP inhibitor is appropriate. This is a test that the medical oncologist could order. Because no gene mutations were identified, Mr. Mcmanus is not recommended to undergo any additional cancer screenings beyond routine cancer screenings, and no additional treatment options were identified. We discussed the importance of prostate cancer screenings, given his diagnosis. Men at average-risk to develop prostate cancer are recommended to start screening for prostate cancer at age 50. Having a first-degree relative with prostate cancer diagnosed before the age of 60 increases the likelihood of a prostate cancer diagnosis by 2.1 to 2.5 fold. We discussed that current NCCN guidelines state an individual with family history of prostate cancer (brother or father or multiple family members who were diagnosed with prostate cancer at <60 years of age or who from prostate cancer) should begin PSA screening 10 years prior to the age of diagnosis or between the ages of 40-45. Regarding his children, no genetic testing is recommended for them at this time,since his test results did not show anything they need to be tested for. Due to the family history of early onset breast cancer in Mr. Mcmanus? sister, she is eligible for her own genetic testing as are the brother?s with prostate cancer. Research option: There is a clinical trial for people at increased risk for prostate cancer; Prostate Cancer Genetic Risk Evaluation and Screening Study (PROGRESS) ClinicalTrials.gov ID QMV65437362 Sponsor [facility] Information provided by Marciano Schmitt MD, PhD, [facility] (Responsible [employer]) Study Contact Name: Vera Carpenter Email: Plan: - test report provided - Our understanding of genetic contribution to cancer diagnoses is always evolving, so there may be additional testing recommended in the future. He can contact us in 3 years to determine if there have been any changes since our discussion today. - genetic testing for cancer affected family member's available - Mr. Garcia Children should discuss the family history with their physicians to develop a screening plan. Breast cancer screen should start 10 years before the earliest diagnosis. Prostate cancer screening to start at 40. -Research option for Mr. Mcmanus' children and nephews as above Sincerely, Yaima Chang MD Clinical apprentice [facility] [phone] Total time 35 min Prep 10 min face to face 15min Documentation 15 Clinic Data REASON FOR VISIT Visit Reasons: 1 month f/u Dictated By: Yaima Chang MD DD/ 1224 Signed By: <Electronically signed by Yaima Chang MD> 12/08/24 1232 [facility] Work Phone: 1(911) 673-375208-20-2025 [facility] [place] [address] Genetics Follow Up Note Signed Patient: Rocky Mcmanus MR#: [id number] : 1950 Acct:[id number] Age/Sex: 74 / M Type: REG AMB Date of Service: 12/08/24 Copies to: MD Dhaval Fitzpatrick Jr, DO Norleena Poynter, MD~ Genetics Follow Up Rocky Mcmanus is a 74 yo male referred due to his diagnosis of prostate cancer and family history of cancer to discuss genetic testing options. Mr. Mcmanus was initially seen in the [facility] 10/27/24 for counseling and coordination of genetic testing. Based on his personal and family history of cancer, the 40 gene Optimal Blue BRCA1/2 analyses with [employer] panel from was ordered. He was seen on 12/08/24 to review his results. RESULTS: Mr. Delgado?promise genetic testing DID NOT show any known pathogenic (known harmful, cancer-causing) mutations in any of the genes which were examined. 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 The VUS is located at p.A264G on one copy of the FH genes. As discussed, a VUS is a change in the gene from the typical expected result that is not known if itis: (a) harmful and associated with increased cancer risk, or (b) benign and not associated with increased cancer risk. Over time, as new knowledge is gained, a genetic testing laboratory may be able to reclassify the VUS as either benign or pathogenic. We will let him know if anamended report is ever issued. The reclassification process does not usually happen very quickly, and the process sometimes takes years. More often than not,a VUS is reclassified as benign (or likely benign), but sometimes a VUS is reclassified as pathogenic. A pathogenic gene change is one that would have significant implications for him as the original patient tested, as well as for family members. At this time, since this gene change is a VUS, this means that we cannot make any medical management recommendations based on it. We must use personal and family history to guide his care and the care of relatives. Discussion Negative genetic testing results can be explained by several possibilities: - It is estimated that a small percentage of gene mutations are not identified by current testing technology. This negative test result makes a hereditary breast cancer syndrome less likely, but it cannot rule one out completely. - There could be other genes that may increase the risk for cancer for which there is no testing available at this time. - The cancer in the family is not due to an inherited risk factor, and instead is sporadic or due to chance. Mr. Wooten results were negative, which do not support the use of a PARP inhibitor, however somatic genetic testing on the tumor, if not already performed, may also be useful in determining if a PARP inhibitor is appropriate. This is a test that the medical oncologist could order. Because no gene mutations were identified, Mr. Mcmanus is not recommended to undergo any additional cancer screenings beyond routine cancer screenings, and no additional treatment options were identified. We discussed the importance of prostate cancer screenings, given his diagnosis. Men at average-risk to develop prostate cancer are recommended to start screening for prostate cancer at age 50. Having a first-degree relative with prostate cancer diagnosed before the age of 60 increases the likelihood of a prostate cancer diagnosis by 2.1 to 2.5 fold. We discussed that current NCCN guidelines state an individual with family history of prostate cancer (brother or father or multiple family members who were diagnosed with prostate cancer at <60 years of age or who from prostate cancer) should begin PSA screening 10 years prior to the age of diagnosis or betweenthe ages of 40-45. Regarding his children, no genetic testing is recommended for them at this time,since his test results did not show anything they need to be tested for. Due to the family history of early onset breast cancer in Mr. Wooten sister, she is eligible for her own genetic testing as are the brother?s with prostate cancer. Research option: There is a clinical trial for people at increased risk for prostate cancer; Prostate Cancer Genetic Risk Evaluation and Screening Study (PROGRESS) ClinicalTrials.gov ID VFJ64812465 Sponsor [facility] Information provided by Marciano Schmitt MD, PhD, [facility] (Responsible [employer]) Study Contact Name: Vera Carpenter Email: Plan: - test report provided - Our understanding of genetic contribution to cancer diagnoses is always evolving, so there may beadditional testing recommended in the future. He can contact us in 3 years to determine if there have been any changes since our discussion today. - genetic testing for cancer affected family member's available - Mr. Garcia Children should discuss the family history with their physicians to develop a screening plan. Breast cancer screen should start 10 years before the earliest diagnosis. Prostate cancer screening to start at 40. -Research option for Mr. Garcia children and nephews as above Sincerely, Yaima Chang MD Clinical apprentice [facility] [phone] Total time 35 min Prep 10 min face to face 15min Documentation 15 Clinic Data REASON FOR VISIT Visit Reasons: 1 month f/u Dictated By: Yaima Chang MD DD/ 1224 Signed By: 12/08/[address] [facility]07-28-2025 Evaluation note* Diagnosis Onset Date Resolution Status Admit Date Prostate cancer acute October 9:14am [facility] Work Phone: 1(631) 928-865007-30-2024 Procedure [facility]04-16-2024 [id number]04-12-2024 [id number]04-11-2024 [facility] SURGERY Clinical Discharge Summary PERSON INFORMATION Name ROCKY MCMANUS Age 73 Years 1950 Sex MALE Language Cambodian PCP DHAVAL CHOE JR. Marital Status Med Service Ambulatory Surgery Acct# Arrival 07/31/2023 08:25:45 Visit Reason SURGERY - FUSION PROSTATE BIOPSY Acuity LOS 071 05:02 Address: [address] [place] [address] [address] [place] [address] Comment: PROVIDER INFORMATION VITALS INFORMATION Vital Sign [...] (scheduled). Comment: Lab and (more content not included)...[id number] Discharge instructions* Instructions* Bradley Miller MD - 07/17/2021 Gregorio, Your procedure went [...] activity restrictions. Best, Dr. Bradley Miller MD * Attachments The following attachments cannot be sent through Care Everywhere. * Prostate Biopsy (Cambodian) documented in this [facility] Work Phone: evaluation noteNo assessment information available [facility] Work Phone: Evaluation note* Diagnosis Onset Date Resolution Status Prostate cancer acute [facility] Work Phone: Evaluation note* Diagnosis Onset Date Resolution Status Prostate cancer acute Prostate cancer acute [facility] Work Phone: Evaluation note* Diagnosis Onset Date Resolution Status Admit Date Prostate cancer acute June 10:45am [facility] Work Phone: Evaluation note* Diagnosis Onset Date Resolution Status Admit Date Prostate cancer acute October 9:14am [facility] Work Phone: Hospital Discharge instructions Additional Instructions Patient has follow-up in radiation oncology this November 19 for planning scans. He and his are aware of the appointment.[facility] Work Phone: Progress note Author Pretty Key [facility] November 04, 2023 9:50am Note Date/Time November 04, 2023 8:53 am [facility] [place] [address] Cancer Center Note Signed Patient: Rocky Mcmanus MR#: [id number] : 1950 Acct:[id number] Age/Sex: 73 / M Type: REG AMB [...] mL. Fusion biopsy showed 3 areas of [place] 6 and 1 area of Kaci 3+4 [...] accompanied by his . They live in [place]. IPSS is 9 with urgency about half [...] Last Reconciled 11/04/23 by Maria De Jesus Wang allopurinol 100 mg PO BID aspirin 81 [...] appointment from Dr Miller for prostate cancer [facility] Medical History Medical History (Updated 11/03/23 @ [...] et al, and the Measurement Committeeof the [employer]. The [employer] symptom index for benign prostatic hyperplasia. J Urol. 1992; 148: 1941-5620. Copyright 1992 [employer] MEE Score Over the past [...] signed by Pretty Key MD> 11/04/23 0950 [facility] Work Phone: Progress note Author Pretty Key [facility] January 13, 2024 11:41am Note Date/Time January 13, 2024 11:29am [facility] [place] [address] Cancer Center Note Signed Patient: Rocky Mcmanus MR#: [id number] : 1950 Acct:[id number] Age/Sex: 73 / M Type: REG AMB [...] of Kaci 6 and 1 area of [place] 3+4 = 7 disease. Decipher testing returned low risk with 1.2% risk of metastatic disease in 10 years. Patient placed on active surveillance. July 2022 PSA increased to 4.89--> MRI showed stable 1.4 cm transitional zone from the right. October 2022 PSA 3.September PSA 3.82 August 01, 2023 repeat TRUS biopsy confirms [place] 3+3=6 disease in 2 cores withGleason 3+4 [...] Allergy (Verified 11/06/23 15:26) Swelling of Lip/Tongue/Throat PMFSH Medical History Medical History Hypertrophic cardiomyopathy treated [...] Onc) LAB RESULTS Glucose 75 mg/dL (70-100) 07/18/24 15:15 BUN 16 mg/dL (7-25) 11/06/23 15:15 [...] et al, and the Measurement Committeeof the [employer]. The [employer] symptom index for benign prostatic hyperplasia. J Urol. 1992; 148: 6291-2689. Copyright 1992 [employer] Over the past six months [...] signed by Pretty Key MD> 01/13/24 1141 [facility] Work Phone: Repvfs for referral (narrative)No reason for referral information availableSheltering Arms Hospital Work Phone: Renojg for visit Narrative* Auth/Cert Specialty Diagnoses / Procedures Referred By Contac t Referred To Contact Diagnoses Elevated PSA DX ELEVATED PSA Procedures [place] BIOPSY OF PROSTATE,NEEDLE/PUNCH FUSION BIOPSY PROSTATE URO CARRIE- (MRI ST V'S 06/21) Bradley Farias MD [address] [facility] [address] [place] [address] [address] [place] [address] Referral ID Status Reason Start Date Expiration Date Visits Re quested Visits Authorized 1 1 [employer] Phone: Summary Purpose Family History No Family [...] FoundDocuments on File Type Date Recorded Patient Strategic Intelligence Officer Expl anation ACP-Power of Cottage Parent Advance Directive Response Recorded Date/ Time Advance Directives No October 29 10:07am Chief Complaint and Reason for Visit Chief Complaint Admit Date New Genetics Family Hx Prostate October 8:18am Follow Up Review PSA November 15, 2024 9:1 4am Prostate Cancer November 15, 2024 9:16 am Reason for Visit Admit Date Prostate cancer November 15, 2024 9:14 am Chief Complaint Admit Date New Genetics Family Hx Prostate October 8:18am Prostate Cancer October 27, 2024 8:20a m Chief Complaint Admit Date Follow Up Review PSA July 12, 2024 10 :45am Prostate Cancer July 12, 2024 10: 47am Reason for Visit Admit Date Prostate cancer July 12, 2024 10: 45am Chief Complaint New Patient Prostate cancer Prostate [...] section and content) DATE CREATED AUTHOR 06/24/2021 [facility] DATE CREATED AUTHOR AUTHOR'S ORGANIZ ATION 08/15/2021 [facility] DATE CREATED AUTHOR AUTHOR'S ORGANIZ ATION 06/03/2022 [facility] DATE CREATED AUTHOR AUTHOR'S ORGANIZ ATION 07/05/2022 [facility] DATE CREATED AUTHOR AUTHOR'S ORGANIZ ATION 07/08/2024 [facility] DATE CREATED AUTHOR AUTHOR'S ORGANIZ ATION 12/10/2024 [facility] Scheduled Active and Recently Administ [...] Care Teams (unrecognized sec tion and content) College Instructor Relationship Specialty Start Date End Date Dhaval Choe DO [address] [place] [address] PCP - General 05/08/12 Team Status: Active [...] January 13, 2024 End: January 13, 2024 Team Status: Inactive Member Role Status Dates Dhaval Choe JR DO Primary Care Provider Active Start: July 12, 2024 End: July 12, 2024 Pretty Key MD Attending Provider Active Start: July 12, 2024 End: July 12, 2024 Team Status: Active Member Role Status Dates Dhaval Choe JR DO Primary Care Provider Active Start: July 12, 2024 Pretty Key MD Attending Provider Active Start: July 12, 2024 Bradley Miller MD Referring Provider Active Start: July 12, 2024 Team Status: Inactive Member Role Status Dates Dhaval Choe JR DO Primary Care Provider Active Start: October 27, 2024 End: October 27, 2024 Yaima Chang MD Attending Provider Active Star t: October 27, 2024 End: October 27, 2024 Pretty Key MD Referring Provider Active Start: October 27, 2024 End: October 27, 2024 Team Status: Active Member Role Status Dates Dhaval Choe JR DO Primary Care Provider Active Start: October 27, 2024 Pretty Key MD Attending Provider Active Start: October 27, 2024 Bradley Miller MD Referring Provider Active Start: October 27, 2024 Team Status: Inactive Member Role Status Dates Dhaval Choe JR DO Primary Care Provider Active Start: November 15, 2024 End: November 15, 2024 Brielle Murrell APRN Attending Provider Acti ve Start: November 15, 2024 End: November 15, 2024 Team Status: Active Member Role Status Dates Dhaval Choe JR DO Primary Care Provider Active Start: November 15, 2024 Pretty Key MD Attending Provider Active Start: November 15, 2024 Bradley Miller MD Referring Provider Active Start: November 15, 2024 Team Status: Inactive Member Role Status Dates Dhaval Choe JR DO Primary Care Provider Active Start: December 08, 2024 End: December 08, 2024 Yaima Chang MD Attending Provider Active Star t: December 08, 2024 End: December 08, 2024 Team Status: Active Member Role Status Dates Dhaval Calvert JR Дмитрий DO Primary Care Provider Active Start: December 08, 2024 Pretty Key MD Attending Provider Active Start: December 08, 2024 Bradley Miller MD Referring Provider Active Start: December 08, 2024 Goals (unrecognized section and content) Goals [...] BE BASED ON THE PRIMARY CLINICAL RECORDS. [employer] provides no warranty or guarantee of the accuracy or completeness of information in this document.
[2024-12-16 09:28] VITALS: BP 118/63; PULSE 50; TEMP 36.3; O2SAT 99; BMI 28.7
--- NOTE | 2024-12-16 09:40 | US_ITS ---
The [address] [address] Patient Name: [place] MCMANUS MRN: [id number] date: 1950 Sex: M Assigned Patient Location: ER Current Patient Location: ER Accession/Order Number: [id number] Exam Date: 12/16/2024 09:41 Report Date: 12/16/2024 10:43 At the request of: JASMINE KUMARI MD Procedure: US scrotum doppler SCROTAL ULTRASOUND WITH DUPLEX IMAGING COMPARISON: None CLINICAL DATA: Right testicular pain for the past 2 days. The right testis measures 4.0 x 1.7 x 2.5 cm in size. The left measures 3.9 x 1.4 2.7 cm. There is normal echogenicity. No intratesticular masses are identified. There is documentation of bilateral duplex and color Doppler testicular blood flow. No epididymal abnormalities are seen. There are prominent vessels adjacent to the right testis with increased blood flow on Valsalva suggesting varicocele. There is also a small right hydrocele. US/US scrotum doppler IMPRESSION: NO INTRATESTICULAR MASS OR TORSION. RIGHT VARICOCELE. SMALL RIGHT HYDROCELE. Impression dictated by: Naima Self M.D. 12/16/2024 10:43 AM Dictation [facility] Electronically authenticated by: [id number] Date: 12/16/2024 10:43
[2024-12-16] MEDS: KETOROLAC TROMETHAMINE 30 MG/ML VIAL 15 MG IVP (09:56)
[2024-12-16] MEDS: MORPHINE SULFATE 2 MG/ML SYRINGE IV (09:57)
[2024-12-16 09:58] LABS: Hematocrit 38.9 % (42.0-54.0); Hemoglobin 13.4 g/dL (14.0-18.0); Immature Granulocytes Abs Auto 0.01 10^3/uL (0.00-0.03); Immature Granulocytes Pct Auto 0.2 % (0.0-0.5); Lymphocytes Absolute Auto 0.8 10^3/uL (1.2-3.8); Mean Corpuscular HGB Conc 34.4 g/dL (29.9-35.2); Mean Corpuscular Hemoglobin 33.7 pg (25.9-34.0); Mean Corpuscular Volume 97.7 fL (80.0-94.0); Platelet Count 208 10^3/uL (150-450); Red Blood Count 3.98 10^6/uL (4.70-6.10); White Blood Count 4.9 10^3/uL (4.0-11.0)
[2024-12-16 10:14] LABS: Alanine Aminotransferase 19 U/L (16-63); Albumin Globulin Ratio 1.0; Albumin Level 3.3 g/dL (3.4-5.0); Alkaline Phosphatase 79 U/L (46-116); Anion Gap 11.9; Aspartate Amino Transferase 15 U/L (15-37); Blood Urea Nitrogen 16.0 mg/dL (7.0-18.0); Calcium 8.9 mg/dL (8.5-10.1); Carbon Dioxide 25.0 mmol/L (21.0-32.0); Chloride 110 mmol/L (98-107); Estimated GFR (African America >60 (>=60 mL/min/1.73m^2); Estimated GFR (Non-African Ame >60 (>=60 mL/min/1.73m^2); Globulin 3.2 g/dL; Glucose 107 mg/dL (74-106); Potassium 3.9 mmol/L (3.5-5.1); Sodium 143 mmol/L (136-145); Total Protein 6.5 g/dL (6.4-8.2)
[2024-12-16 10:19] LABS: Lactate/Lactic Acid 0.7 mmol/L (0.4-2.0)
[2024-12-16 11:07] LABS: Glucose Urine UA >=1000 mg/dL (NEGATIVE)
--- NOTE | 2024-12-16 13:28 | ED.MALEGU1 ---
HPI - Male Genitourinary General Chief complaint: Urogenital-Male Stated complaint: R GENITALIA PAIN Time Seen by Provider: 12/16/24 09:35 Source: patient Mode of arrival: walk-in History of Present Illness HPI Narrative: The patient is coming to the ER with a right testicular pain he noticed almost 2 days ago, according to him he was doing some work at home and he noticed that he started having right groin pain, the pain is worse when he is moving not associate with any nausea vomiting or any other concern No change in appetite no fall or trauma He does not remember if he was carrying something heavy but he mentioned that he was doing a lot of hard work The patient denies any other concerns Related Data Home Medications ?Medication ?Instructions ?Recorded ?Confirmed allopurinol 100 mg tablet mg 12/16/24 aspirin 81 mg tablet,delayed 81 mg PO DAILY 12/16/24 12/16/24 release (Adult Aspirin Regimen) atorvastatin 40 mg tablet mg 12/16/24 celecoxib 200 mg capsule mg 12/16/24 Held on 12/16/24. Instructions: Resume on 12/23/24. hold while using Voltaren empagliflozin 25 mg tablet mg 12/16/24 (Jardiance) omeprazole 20 mg capsule,delayed mg 12/16/24 release sacubitril 97 mg-valsartan 103 mg 1 tab PO BID 12/16/24 12/16/24 tablet (Entresto) tamsulosin 0.4 mg capsule mg PO 12/16/24 Previous Rx's ?Medication ?Instructions ?Recorded diclofenac sodium 50 mg 50 mg PO Q12H PRN pain #20 tabs 12/16/24 tablet,delayed release levofloxacin 500 mg tablet 500 mg PO DAILY #10 tabs 12/16/24 Allergies Allergy/AdvReac Type Severity Reaction Status Date / Time No Known Drug Allergies Allergy Verified 12/16/24 09:26 Review of Systems ROS Status of ROS 10 or more systems reviewed and unremarkable except as noted in history and below PFSH PFSH Social History Little interest or pleasure in doing things: not at all Feeling down, depressed, or hopeless: not at all Exam Narrative Exam Narrative: Nurses notes and vital signs reviewed and patient is not hypoxic. General: Well-appearing and in no apparent distress. Skin: Warm, dry, no pallor noted. No rash. Head: Normocephalic, atraumatic. Cardiovascular: Regular Rate and Rhythm without murmur, gallop or rub. Respiratory: No accessory muscle use or respiratory distress. Lungs are clear to auscultation, no wheezing, rales or rhonchi Chest Wall: no tenderness Back: No midline thoracic or lumbar vertebral tenderness. No CVA tenderness Musculoskeletal: normal ROM, no calf or popliteal tenderness, no lower extremity edema/swelling GI: Abdomen is soft, non-distended. Normal bowel sounds. There is no abdominal tenderness on examination and the patient had a inguinal examination with the presence of the caring nurse The patient had the right testicle is mildly elevated more than the left but there is no tenderness on palpation there is no changes to the skin of the scrotum there is no trauma No bulging in the right inguinal area and when coughing the patient does not have increasing pain or swelling Neurological: A&O x4. No cranial nerve dysfunction observed. No truncal ataxia. Moves all extremities. Sensation intact. Psychiatric: Cooperative and interactive. Normal mood and affect. Constitutional Vital Signs, click to edit/add: Last Vital Signs Temp 97.4 F L 12/16/24 09:28 Pulse 50 L 12/16/24 09:28 Resp 16 12/16/24 09:28 BP 118/63 12/16/24 09:28 Pulse Ox 99 12/16/24 09:28 O2 Del Method Room Air 12/16/24 09:28 Course Vital Signs Vital signs: Vital Signs Temperature 97.4 F L 12/16/24 09:28 Pulse Rate 50 L 12/16/24 09:28 Respiratory Rate 16 12/16/24 09:28 Blood Pressure 118/63 12/16/24 09:28 Pulse Oximetry 99 12/16/24 09:28 Oxygen Delivery Method Room Air 12/16/24 09:28 Temperature 97.4 F L 12/16/24 09:28 Pulse Rate 50 L 12/16/24 09:28 Respiratory Rate 16 12/16/24 09:28 Blood Pressure 118/63 12/16/24 09:28 Pulse Oximetry 99 12/16/24 09:28 Oxygen Delivery Method Room Air 12/16/24 09:28 MDM - Male Genitourinary MDM Narrative Medical decision making narrative: The patient pain has been more than 2 days and his presentation could be secondary to musculoskeletal pain Ultrasound of the scrotum shows no acute pathology and no testicular torsion With a good blood supply to both testicles but the patient have some varicocele on the right side The patient had a urinalysis showing UTI and the CBC and chemistry was within normal The patient pain could be second epididymitis and he was provided with levofloxacin for the next 7 days daily in addition to the patient also was covered with Toradol in the ER after which she was feeling better Patient will be provided with Voltaren for pain to go home with The patient is to follow up with primary care physician in next 2-3 days or to return to the emergency department should any of the signs or symptoms worsen or new symptoms develop. The patient agrees with the following Diagnosis and Treatment plan and the patient will be discharged home. Lab Data Labs: Lab Results 12/16/24 12/16/24 Range/Units 09:52 10:50 WBC 4.9 (4.0-11.0) 10^3/uL RBC 3.98 L (4.70-6.10) 10^6/uL Hgb 13.4 L (14.0-18.0) g/dL Hct 38.9 L (42.0-54.0) % MCV 97.7 H (80.0-94.0) fL MCH 33.7 (25.9-34.0) pg MCHC 34.4 (29.9-35.2) g/dL RDW 13.3 (11.0-15.0) % Plt Count 208 (150-450) 10^3/uL MPV 9.3 L (9.5-13.5) fL Neut % (Auto) 67.1 (43.0-75.0) % Lymph % (Auto) 16.4 L (20.5-60.0) % [place] % (Auto) 12.1 H (1.7-12.0) % Eos % (Auto) 3.6 (0.9-7.0) % Baso % (Auto) 0.6 (0.2-2.0) % Neut # (Auto) 3.3 (1.4-6.5) 10^3/uL Lymph # (Auto) 0.8 L (1.2-3.8) 10^3/uL [place] # (Auto) 0.6 (0.3-0.8) 10^3/uL Eos # (Auto) 0.2 (0.0-0.7) 10^3/uL Baso # (Auto) 0.0 (0.0-0.1) 10^3/uL Abs Immat Gran (auto) 0.01 (0.00-0.03) 10^3/uL Imm/Tot Granulo (auto) 0.2 (0.0-0.5) % Sodium 143 (136-145) mmol/L Potassium 3.9 (3.5-5.1) mmol/L Chloride 110 H (98-107) mmol/L Carbon Dioxide 25.0 (21.0-32.0) mmol/L Anion Gap 11.9 BUN 16.0 (7.0-18.0) mg/dL Creatinine 1.07 (0.70-1.30) mg/dL Est GFR ( Amer) >60 (>=60 mL/min/1.73m^2) Est GFR (Non-Af Amer) >60 (>=60 mL/min/1.73m^2) BUN/Creatinine Ratio 15.0 Glucose 107 H (74-106) mg/dL Lactate 0.7 (0.4-2.0) mmol/L Calcium 8.9 (8.5-10.1) mg/dL Total Bilirubin 0.9 (0.2-1.0) mg/dL AST 15 (15-37) U/L ALT 19 (16-63) U/L Alkaline Phosphatase 79 (46-116) U/L Total Protein 6.5 (6.4-8.2) g/dL Albumin 3.3 L (3.4-5.0) g/dL Globulin 3.2 g/dL Albumin/Globulin Ratio 1.0 Urine Color Lt. yellow (YELLOW) Urine Clarity Clear (CLEAR) Urine pH 5.5 (5.0-9.0) Ur Specific [place] 1.025 (1.005-1.025) Urine Protein Negative (NEG/TRACE) mg/dL Urine Glucose (UA) >=1000 A (NEGATIVE) mg/dL Urine Ketones Negative (NEGATIVE) mg/dL Urine Occult Blood Negative (NEGATIVE) Urine Nitrite Negative (NEGATIVE) Urine Bilirubin Negative (NEGATIVE) Urine Urobilinogen 0.2 (0.2-1.0) EU/dL Ur Leukocyte Esterase Negative (NEGATIVE) Discharge Plan Discharge Chief Complaint: Urogenital-Male Clinical Impression: Pain in right testicle, Sprain of groin Patient Disposition: Home, Self-Care Time of Disposition Decision: 11:27 Condition: Good Prescriptions / Home Meds: New levofloxacin 500 mg tablet 500 mg PO DAILY Qty: 10 0RF diclofenac sodium 50 mg tablet,delayed release (DR/EC) 50 mg PO Q12H PRN (Reason: pain) Qty: 20 0RF Held celecoxib 200 mg capsule Hold Instructions: Resume on 12/23/24. hold while using Voltaren No Action atorvastatin 40 mg tablet allopurinol 100 mg tablet tamsulosin 0.4 mg capsule PO omeprazole 20 mg capsule,delayed release(DR/EC) Jardiance 25 mg tablet aspirin [Adult Aspirin Regimen] 81 mg tablet,delayed release (DR/EC) 81 mg PO DAILY sacubitril-valsartan [Entresto] 97-103 mg tablet 1 tab PO BID Print Language: Spanish Instructions: Scrotal Pain (ED) Referrals: NAY ABEBE DO [Primary Care Provider, Family Practice] - 1 week Discharge Date/Time: 12/16/24 11:47
== END 2024-12-16 11:47 | disposition home or self-care (01) ==
PROVIDERS: Emergency Provider Emergency Medicine; PCP Internal Medicine
DX: N50.811 Right testicular pain (principal); S39.091A Other injury of muscle, fascia and tendon of abdomen, initial encounter; X50.9XXA Other and unspecified overexertion or strenuous movements or postures, initial encounter
CPT/HCPCS: 36415; 76870; 80053; 81003; 83605; 85025; 93976; 96374; 96375; 99284; J1885; J2270

== ENCOUNTER 2025-03-09 08:14 | Outpatient (OUT) | payer MEDICARE, SELFPAY ==
--- OUTSIDE RECORDS SUMMARY | 2025-03-09 08:17 | XMS_ITS | Clinical Summary ---
Author Organization [facility] Address 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 Name Role Phone Dhaval Choe Primary Care Provider [phone] Allergies Active AllergyReactionsCriticalityNoted DateCommentsShellfish Hbiqmsu4710/19/2014 Medications MedicationSigDispense QuantityRefillsLast FilledStart DateEnd DateStatus olmesartan (BENICAR) 40 MG tablet Take 40 mg by mouth daily06/08/2021ctive ciprofloxacin (CIPRO) 500 MG tablet Take 500 mg by mouth 2 times daily06/28/2021ctive atorvastatin (LIPITOR) 40 MG tablet 06/12/2021ctive omeprazole (PRILOSEC) 20 MG delayed release capsule Take 20 mg by mouth dailyActive allopurinol (ZYLOPRIM) 100 MG tablet Take 100 mg by mouth dailyActive aspirin 81 MG EC tablet Take 243 mg by mouth dailyActive celecoxib (CELEBREX) 200 MG capsule Take 200 mg by mouth 2 times dailyActive Cholecalciferol (VITAMIN D) 50 MCG (1999) CAPS capsule Take by mouthActive Immunizations ImmunizationAdministration DatesNext DueCOVID-19, Inactive, MODERNA BLUE border, Primary or Immunocompromised, (age 12y+)07/15/2020,06/18/2020 Social History Tobacco UseTypesPacks/DayYears UsedDateSmoking Tobacco: NeverSmokeless Tobacco: NeverAlcohol UseStandard Drinks/WeekCommentsYes0 (1 standard drink = 0.6 oz pure alcohol)daily 3-4 beers a daySex and Gender InformationValueDate RecordedSex Assigned at HcrlcQszm75/26/2024 6:08 PM ESTLegal VynQono1905/31/2012 9:22 AM EST Gender EtpgehuxQwqn91/26/2024 6:08 PM ESTSexual SyjbmvplbckCluivhle39/26/2024 6:08 PM EST Last Filed Vital Signs Vital SignReadingTime TakenCommentsBlood Wzqojnlv178/7307/17/2021 2:35 PM EDT Jlmpw051207/17/2021 2:35 PM ODXQmhdyawypse08.1 ??C (97 ??F)07/17/2021 2:35 PM EDT Respiratory Fblm492507/17/2021 2:35 PM EDTOxygen Zhkydafllg82%07/17/2021 2:35 PM EDTInhaled Oxygen Concentration--Mmalao24.5 kg (193 lb)07/01/2022 10:18 AM EDT Nbgdja454.8 cm (5' 10 )07/17/2021 11:19 AM EDTBody Mass Index27.69007/17/2021 11:19 AM EDT Plan of Treatment Health MaintenanceDue DateLast RazxMbhdvccyUjnkpo32/25/1958Depression Screen 1960Hepatitis C lqyond4103/15/1966DTaP/Tdap/Td vaccine (1 - Tdap)1967 Prostate Specific Antigen (PSA) Screening or Mfcdpnukrt02/25/1988Pneumococcal 50+ years Vaccine (1 of 1 - PCV)1998Shingles vaccine (1 of 2)1998 Respiratory Syncytial Virus (RSV) or age 60 yrs+ (1 - 1-dose 75+ series)2023nnual Wellness Visit (Medicare Advantage)04/21/2024Flu vaccine (#1)5COVID-19 Vaccine (3 - 2024- season)503/, 06/18/2020Hepatitis A vaccineAged OutNo longer eligible based on patient's age to complete this topicHepatitis B vaccineAged OutNo longer eligible based on patient's age to complete this topicHib vaccineAged OutNo longer eligible based on patient's age to complete this topicMeningococcal (ACWY) vaccineAged OutNo longer eligible based on patient's age to complete this topicMeningococcal B vaccineAged OutNo longer eligible based on patient's age to complete this topic Polio vaccineAged OutNo longer eligible based on patient's age to complete this topic Insurance [address] [place] [address] Care Teams Team MemberRelationshipSpecialtyStart DateEnd Date Dhaval Choe DO [address] [place] [phone] PCP - General05/08/12
--- OUTSIDE RECORDS SUMMARY | 2025-03-09 08:18 | XMS_ITS | Clinical Summary ---
Author Organization [email or web address] [facility] Address [id number] [place] [address] Care Team Providers Care Group Sales Coordinator Name Role Phone Unavailable Primary Care Provider Unavailabl e Social History Tobacco UseTypesPacks/DayYears UsedDateSmoking Tobacco: Never AssessedChildcare AnswerDate BhtiekerSjnaqfkyoUbcwehy01/12/2019EmploymentAnswerDate Recorded LuyuffmzowUjmljdd49/12/2019Sex and Gender InformationValueDate RecordedSex Assigned at BirthNot on fileLegal JacSvee8311/24/2014 11:36 AM EDTGender Identity Not on fileSexual OrientationNot on file Plan of Treatment Health MaintenanceDue DateLast DoneCommentsDepression Mlkqldniw35/25/1960Tobacco Wgbuolvub90/25/1960DTaP,Tdap and Td Vaccines (1 - Tdap)1967Zoster (Shingles) Vaccine (1 of 2)1998Fall Risk Rgymbuess45/25/2013RSV ( or age 60+ yrs) (1 - 1-dose 75+ series)2023Influenza Vphqzgh1312/20/2024 Medical Devices Not on file Insurance
--- OUTSIDE RECORDS SUMMARY | 2025-03-09 08:21 | XMS_ITS | CCD ---
Author Organization [facility] CliniSytx Care Team Providers Care Machine Maintenance Repairer Name Role Phone BRADLEY MILLER Referring Unavailable [...] Unavailable JR Dhaval Choe Primary Care Provider [phone] MD Bradley Miller Attending Provider [phone] JR Dhaval Choe Primary Care Provider [phone] MD Pretty Key Attending Provider MD Bradley Miller Referring Provider JR Dhaval Choe Primary Care Provider MD Pretty Key Attending Provider MD Bradley Miller Referring Provider Bradley Miller Attending Unavailable Bradley Miller Admitting Unavailable DHAVAL CHOE JR. Primary Care Unavailabl e Dhaval Choe JR Primary Care Provider Pretty Key MD Attending Provider Bradley Miller MD Referring Provider [phone] Dhaval Choe JR Primary Care Provider Yaima Chang MD Attending Provider Pretty Key MD Referring Provider Pretty Key MD Attending Provider Bradley Miller MD Referring Provider Brielle Murrell APRN Attending Provider Pretty Key MD Attending Provider Bradley Miller MD Referring Provider Pretty Key MD Attending Provider Bradley Miller MD Referring Provider Pretty Key Attending Unavailable Bradley Miller Referring Unavailable SadiepolyDhaval Primary Care Unavailable Pretty Key Admitting Unavailable Allergies Allergy ClassificationReported Allergen(s)Allergy TypeDate of OnsetReaction(s) Facility (1 source)ShellfishPropensity to adverse reactions to xczf40-37-3081Qwwqx Health (2 sources)Shellfish; Translations: [shellfish]Drug allergy (disorder)10-19-2014 [facility] Repository (1 source)ShellfishDrug allergy (disorder)01-98-2527[facility]cqwqtiMem[facility] Medications Current Medications MedicationDrug Class(es)DatesSig (Normalized)Sig (Original)allopurinol 100 mg oral tablet (9 sources)Xanthine Oxidase InhibitorStart: 47-66-9876ixba 1 tablet by mouth twice dailytake 1 tablet by mouth once dailyallopurinol (ZYLOPRIM) 100 MG tablet Take 100 mg by mouth daily 0 Suspendedaspirin 81 mg chewable tablet (9 sources)Platelet Aggregation Inhibitor, Nonsteroidal Anti-inflammatory Drug Start: 53-50-4876wpbj 1 tablet by mouth once dailytake 3 tablets by mouth once dailyaspirin 81 MG EC tablet Take 243 mg by mouth daily 0 Suspendedatorvastatin 40 mg oral tablet (9 sources)HMG-CoA Reductase InhibitorStart: 74-16-5092axel 1 tablet by mouth once dailyStart: 13-32-9776vjzzdeughyyx (LIPITOR) 40 MG tabletcalcium chloride 0.0014 meq/ml / potassium chloride 0.004 meq/ml / sodium chloride 0.103 meq/ml / sodium lactate 0.028 meq/ml injectable solution (1 source)Start: 20-42-3968epdmctnd ringers infusionStart: 28-00-2437aonsschv ringers infusioncelecoxib 200 mg oral capsule (9 sources)Nonsteroidal Anti-inflammatory DrugStart: 59-90-7538mxln 1 capsule by mouth once dailytake 1 capsule by mouth twice dailycelecoxib (CELEBREX) 200 MG capsule Take 200 mg by mouth 2 times daily 0 Suspendedcholecalciferol 0.025 mg oral capsule (9 sources)Vitamin DStart: 21-08-5040mcjt 1 capsule by mouth once daily Cholecalciferol (VITAMIN D) 50 MCG (1999) CAPS capsule Take by mouth 0 Suspendedempagliflozin 25 mg oral tablet (8 sources)Sodium-Glucose Cotransporter 2 InhibitorStart: 79-03-6528vail 1 tablet by mouth once daily10 ml lidocaine hydrochloride 10 mg/ml injection (1 source)Antiarrhythmic, Amide Local AnestheticStart: 07-18-2021 End: 12-46-2282sdtqjvdfe PF 1 % injection 1 mLomeprazole 20 mg delayed release oral capsule (9 sources)Proton Pump InhibitorStart: 63-36-9272wxco 1 capsule by mouth once dailytake 1 capsule by mouth once dailyomeprazole (PRILOSEC) 20 MG delayed release capsule Take 20 mg by mouth daily 0 Suspendedsacubitril 24 mg / valsartan 26 mg oral tablet (8 sources)Angiotensin 2 Receptor BlockerStart: 60-18-7394fbff 1 tablet by mouth twice daily Completed/Discontinued Medications MedicationDrug Class(es)DatesSig (Normalized)Sig (Original)ciprofloxacin 500 mg oral tablet (1 source)Quinolone AntimicrobialStart: 14-51-8260oaao 1 tablet by mouth twice dailyciprofloxacin (CIPRO) 500 MG tablet Take 500 mg by mouth 2 times daily 0 06/28/2021 Suspendedolmesartan medoxomil 40 mg oral tablet (1 source)Angiotensin 2 Receptor BlockerStart: 36-29-5765nqdj 1 tablet by mouth once dailyolmesartan (BENICAR) 40 MG tablet Take 40 mg by mouth daily 0 06/08/2021 Suspendedtamsulosin hydrochloride 0.4 mg oral capsule (12 sources)alpha-Adrenergic BlockerStart: 12-12-2023 End: 14-49-1541ledu 1 capsule by mouth once dailyTamsulosin (Flomax) 0.4 mg capsule Discontinued 0.4 MG PO Daily April 28, 2024 2:23pm October 12, 2024 3:33pm Problems Problem ClassificationProblemDateDocumented DateEpisodic/ChronicCancer of prostate (20 sources)Malignant neoplasm of prostate; Translations: [Malignant tumor of prostate]Onset: 35-18-9105Ynrrefa Results Test NameValueInterpretationReference RangeFacilityPathology Sendout Teston 32-78-7801Ptnzunhpx Send Out.See [facility] HamiltonComment on above: Order Comment: PROSTATE BIOPSY-AREA OF INTERESTPerformed By: #### [id number] ####[facility] (DEFAULT)[address] [place], [place] [address]Pathology Send Out.See [facility] HamiltonComment on above:Performed By: #### [id number] ####[facility] (DEFAULT)[address] [place], [place] [address]Pathology Send Out.See [facility] HamiltonComment on above: Performed By: #### [id number] ####[facility] (DEFAULT)[address] [place], [place] [address]Pathology Send Out.See [facility] Comment on above:Performed By: #### [id number] #### [facility] (DEFAULT) [address] [place], [place] [address]Pathology Send Out.See [facility] Comment on above:Performed By: #### [id number] #### [facility] (DEFAULT) [address] [place], [place] [address]Pathology Send Out.See [facility] Comment on above:Performed By: #### [id number] #### [facility] (DEFAULT) [address] [place], [place] [address]Pathology Send Out.See [facility] Comment on above:Performed By: #### [id number] #### [facility] (DEFAULT) [address] [place] [phone] Send Out.See [facility] Comment on above:Performed By: #### [id number] #### [facility] (DEFAULT) [address] [place] [address] [phone] Send Out.See [facility] Comment on above:Performed By: #### [id number] #### [facility] (DEFAULT) [address] [place] [address] [phone] Send Out.See [facility] Comment on above:Performed By: #### [id number] #### [facility] (DEFAULT) [address] [place] [address] [phone] Send Out.See [facility] Comment on above:Performed By: #### [id number] #### [facility] (DEFAULT) [address] [place] [address] 91684Pkmjsoeqf Send Out.See [facility] Comment on above:Performed By: #### [id number] #### [facility] (DEFAULT) [address] [place] [address] [phone] Send Out.See [facility] Comment on above:Performed By: #### [id number] #### [facility] (DEFAULT) [address] [place] [address] 90825Pwtbazzkf Auto (Bld) [#/Vol]Ordered By: Pretty Key on 61-17-4471Ocgnvpodz (Bld) [#/Vol]0.0 10*3/uL0.0-0.2FUC Medical CenterBasophils/100 WBC Auto (Bld)Ordered By: Pretty Key on 11-06-2023 Basophils/100 WBC (Bld)0.7 %.[facility] HospitalCalcium [Mass/volume] in Serum or PlasmaOrdered By: Pretty Key on 11-06-2023 Calcium [Mass/Vol]8.8 mg/dL8.6-10.3FUC Medical CenterCarbon dioxide, total [Moles/volume] in Serum or PlasmaOrdered By: Pretty Key on 96-67-1217BM6 [Moles/Vol]27.0 mmol/L21.0-31.0[facility] Chloride [Moles/volume] in Serum or PlasmaOrdered By: Pretty Key on 96-80-3586Shxldqcx [Moles/Vol]107 mmol/G24-176HrqmaowzsMemorial Health System [facility] Hospital Creatinine [Mass/volume] in Serum or PlasmaOrdered By: Pretty Key on 30-41-3250Livuxyslhx [Mass/Vol]1.16 mg/dL0.70-1.30[facility] HospitalEosinophils Auto (Bld) [#/Vol]Ordered By: Pretty Key on 11-06-2023 Eosinophils (Bld) [#/Vol]0.1 10*3/uL0.0-0.45[facility] Eosinophils/100 WBC Auto (Bld)Ordered By: Pretty Key on 11-06-2023 Eosinophils/100 WBC (Bld)2.3 %.[facility] HospitalErythrocyte distribution width Auto (RBC) [Ratio]Ordered By: Pretty Key on 11-06-2023 Erythrocyte distribution width (RBC) [Ratio]14.2 %12.0-14.8[facility] HospitalGlucose [Mass/volume] in Serum or PlasmaOrdered By: Pretty Key 54-70-3251Rvysefa [Mass/Vol]75 mg/hF33-873DglrfbepyMemorial Health System Selby General HospitalComment on above:ADA recommended reference rangeRandom Glucose Reference Range is dependent on time and content of last meal. Glucose of more than 200 mg/dL in a nonstressed, ambulatory subject supports the diagnosisof Diabetes Mellitus.Hematocrit Auto (Bld) [Volume fraction]Ordered By: Pretty Key on 23-18-7634Rgtaovdfxm (Bld) [Volume fraction]43.4 %38.8-50.0[facility] HospitalHemoglobin [Mass/volume] in BloodOrdered By: Pretty Key on 63-26-8966Uxavpmanvt (Bld) [Mass/Vol]14.8 g/dL13.0-17.0[facility] HospitalLeukocytes [#/volume] corrected for nucleated erythrocytes in Blood by Automated counOrdered By: Pretty Key on 63-69-6690OTR corrected for nucl RBC Auto (Bld) [#/Vol]6.5 10*3/uL4.1-10.5F[facility] Medical CenterLymphocytes Auto (Bld) [#/Vol]Ordered By: Pretty Key on 11-06-2023 Lymphocytes (Bld) [#/Vol]1.5 10*3/uL1.00-4.8[facility] Lymphocytes/100 WBC Auto (Bld)Ordered By: Pretty Key on 11-06-2023 Lymphocytes/100 WBC (Bld)23.0 %.[facility] Auto (RBC) [Entitic mass]Ordered By: Pretty Key on 09-85-4262EZJ (RBC) [Entitic mass] 33.1 pg27.5-35.2[facility] Medical CenterMCHC Auto (RBC) [Mass/Vol] Ordered By: Pretty Key on 16-23-2804LYYZ (RBC) [Mass/Vol]34.1 g/dL 32.5-35.6[facility] Medical CenterMCV Auto (RBC) [Entitic vol]Ordered By: Pretty Key on 44-17-7882OZT (RBC) [Entitic vol]97.0 fL83.5-101 [facility] HospitalMonocytes Auto (Bld) [#/Vol]Ordered By: Pretty Key on 49-27-4999Zrvnncpqz (Bld) [#/Vol]0.7 10*3/uL0.0-0.8[facility] HospitalMonocytes/100 WBC Auto (Bld)Ordered By: Pretty Key on 53-26-6223Ixdfonsdq/100 WBC (Bld)10.8 %.[facility] Neutrophils Auto (Bld) [#/Vol]Ordered By: Pretty Key on 11-06-2023 Neutrophils (Bld) [#/Vol]4.1 10*3/uL1.8-7.7[facility] Neutrophils/100 WBC Auto (Bld)Ordered By: Pretty Key on 11-06-2023 Neutrophils/100 WBC (Bld)63.2 %.[facility] HospitalNo Panel InformationOrdered By: Pretty Key on 65-38-0271Phbewsvqh GFR (CKD-EPI)> 60.0 mL/MinMemorial Health System Selby General HospitalPharmacy Creatinine Clearance (Chem N/AFUC Medical CenterNucleated erythrocytes [Presence] in Blood by Automated countOrdered By: Pretty Key on 91-71-2371Ercbygwoy RBC Auto Ql (Bld)0.0 /100{WBC}0-0.5F[facility] Medical CenterPlatelet mean volume Auto (Bld) [Entitic vol]Ordered By: Pretty Key on 53-54-7753Bxokhrsw mean volume (Bld) [Entitic vol]7.8 fL6.6-10.1[facility] Platelets Auto (Bld) [#/Vol]Ordered By: Pretty Key on 47-02-5374Hzzdtbjpl (Bld) [#/Vol]219 10*3/nW222-793DwohxozgzMemorial Health System Selby General HospitalPotassium [Moles/volume] in Serum or PlasmaOrdered By: Pretty Kye on 11-06-2023 Potassium [Moles/Vol]4.3 mmol/L3.5-5.1F[facility] Medical CenterRBC Auto (Bld) [#/Vol]Ordered By: Pretty Key on 53-73-1350LKR (Bld) [#/Vol]4.47 10*6/uL3.90-5.60[facility] Hospitalerum or plasma anion gap determinationOrdered By: Pretty Key on 98-66-9445Nyfrx gap [Moles/Vol]9.3 mmol/L6.0-15.0[facility] Hospitalodium [Moles/volume] in Serum or PlasmaOrdered By: Pretty Key on 47-16-2476Ikdngu [Moles/Vol]139 mmol/L 136-145[facility] HospitalUrea nitrogen [Mass/volume] in Serum or PlasmaOrdered By: Pretty Key on 73-18-2826Klvy nitrogen [Mass/Vol]16 mg/dL 7-[facility] HospitalWBC Auto (Bld) [#/Vol]Ordered By: Pretty Shahid on 87-32-0969FPU (Bld) [#/Vol]6.5 10*3/uL4.1-10.5[facility] Medical CenterDischarge Instructionson 12-48-2787Kmcpmiqnw Instructions [id number]#1.00OT[facility] HospitalLab - AP Resultson 32-68-7226Hys - AP Results [id number]#1.00OT[facility] HospitalLab - AP [id number]#1.00OT[facility] HospitalLab - AP Resultson 91-30-4266Eis - AP Results [id number]#1.00OT[facility] Hospital Discharge Instructionson 67-98-2191Ucwzgvcdl Instructions [id number]#1.00OT[facility] HospitalCoding Summaryon 37-40-4246Mtrquf SummaryHTMLBase 64 RnsnalbcDVi3eVy+PGhlYWQ+TH4MPDSnH99ynOVnxP4pY2FLWRgDJvttKNMPOFcQHfGfbwRwGG1raHTv ZXJu [file] ZXI (more content not included)...[facility]Lab - AP Resultson 80-07-7793Vlp - AP [id number]#1.00OTGTIFF [facility] ClinicOperative Report - Surgeon/Physicianon 08-05-2023 Operative Report - Surgeon/Physician [id number]#1.00[facility] Operative Report - Surgeon/Physician [id number]#1.00[facility] MemorialProvider Orderson 22-02-9389Lmhvvbnl Orders [id number]#1.00[facility] Anesthesia Noteon 17-46-7760Dymjtbriar Note [id number]#1.00[facility] Consent Formson 29-07-7982Zfweqoy Forms [id number]#1.00[facility] PostAnesthesia Noteon 61-81-9658WetbKxavcxbctv Note [id number]#1.00[facility] Inpatient Patient Summaryon 26-10-8774Conaygxxb [place] [address] Patient Discharge Instructions Name: ROCKY MCMANUS : 1950 Patient Address: [address] [place] [address] Primary Care Provider: Name: DHAVAL CHOE JR. After you are discharged if you find you have any questions, please, call [phone] ext [phone] to speak to a nurse. Discharge Diagnosis: Prescription Information: If you have been given a prescription for narcotics, seek immediate medical attention if you have any difficulty breathing or any sudden status changes such as confusion andsleepiness. If you or anyone you know is experiencing suicidal thoughts, mental health, alcohol and/or drug addiction problems; contact the [facility] 11/11 Crisis Hotline -Text 4HOPE to 572693. If you received any narcotics, sedation, or [...] business decisions or sign any legal documents [place] would like to thank you for allowing us to assist you with your healthcare needs.The following includes patient education materials and information [...] the middle ear (otitis (more content not included)...[facility] Intraoperative Recordon 69-14-6315YPSN Intraoperative RecordMAGR Intra-Op Record Summary Primary Physician: Bradley Miller MD Finalized Date/Time: 07/31/23 12:34:22 Pt. Name: ROCKY MCMANUS Ashley/Sex: 1950 MALE Med Rec #: [id number] Physician: Bradley Miller MD Financial #: [id number] Pt. Type: D Room/Bed: / Admit/Disch: 07/31/23 [...] Role Performed Surgeon - Primary Anesthesiologist of Advertising Sales Executive Record Time In 07/31/23 11:43:00 07/31/23 11:33:00 07/31/23 11:33:00 Time Out 07/31/23 11:50:00 07/31/23 11:55:00 07/31/23 11:55:00 Procedure Biopsy Prostate Biopsy Prostate Biopsy Prostate Last Modified By: Dana Mejias RN, Diane RN Kokinda, Diane RN 07/31/23 12:04:37 07/31/23 12:04:37 07/31/23 12:04:37 Entry 4 Entry 5 Case Attendee Yoly Toure CST, Regina CSFA RATE INSERTER Role Performed Scrub Personnel Real Estate Developer Time In 07/31/23 11:33:00 07/31/23 11:33:00 Time [...] Santiago MD, Dana Mejias RN, Yoly Toure RATE INSERTER, Janki Howard RATE INSERTER Last Modified By: Dana Mejias RN 07/31/23 [...] patient identity [email or web address] Manages (more content not included)...[facility] Postoperative Recordon 42-73-7337YLDF Postoperative RecordMA Phase II Record Summary Primary Physician: Bradley Miller MD Finalized Date/Time: 07/31/23 12:57:05 Pt. Name: ROCKY MCMANUS/Sex: 1950 MALE Med Rec #: [id number] Physician: Bradley Miller MD Financial #: [id number] Pt. Type: D Room/Bed: / Admit/Disch: 07/31/23 08:25:45 - Institution: Phase II Case Times MAGR Pre-Care Text: Patient is free from s/s of injury. Patient remains free from compromised physical state related tosurgery or anesthesia. Patient comfort maintained. Patient/family verbalize [...] Signatures Signed By: Zayra Chavez RN 07/31/23 12:[facility] Pre[facility] 96-05-9642JMUG Preoperative RecordMAGR Pre-Op Record Summary Primary Physician: Bradley Miller MD Finalized Date/Time: 07/31/23 12:57:39 Pt. Name: ROCKY MCMANUS Ashley/Sex: 1950 MALE Med Rec #: [id number] Physician: Bradley Miller MD Financial #: [id number] Pt. Type: D Room/Bed: / Admit/Disch: 07/31/23 [...] ready for surgery. The patient remains free froms/s of injury. Patient/family express understanding of plan of care and participate in decisions affectinghis or her perioperrative plan of care. Allergies documented appropriately. Patient identifiers and consent correct. General Comments: Patient arrives to PSW ambulatory. Denies chest pain, cough, cold, COVID like symptoms. Denies diabetes, pacer/defib, sleep apnea. Patient verbalizes understanding of post op orders and instructions. Finalized By: Zayra Chavez RN Document Signatures Signed By: Zayra Chavez RN 07/31/23 12:57[facility] ClinicPatient Handouton 69-31-3422Rseilom HandoutMarietta Osteopathic ClinicProgress Note - Nurseon 32-96-1024Kbpurfrm Note - NurseSpoke with pt and informed him that he needs to be here at 0830 and NPO after MN, he verbalizes understanding. [Electronically Signed on: 07/30/2023 11:54 EDT] Halblaub, Sidsel RN [Verified on: 07/30/2023 11:54 EDT] Halblaub, Sidsel RNNormalSelect Medical Trihealth Rehabilitation Hospital HospitalCoding Summaryon 44-93-9469Uriolf SummaryHTMLBase 64 FwuvnqlqOSy6hOy+PGhlYWQ+RT6ZBTIqQ24reHSatF9pV7GUAVuESbslJEFXBNiREoXjpkJxAZ0lgYWp ZXJu [file] c2U (more content not included)...[facility] ClinicProess Note - Nurseon 87-35-0915Qlktbloj Note - NursePAT chart for 07-31-2023 surgery reviewed by anesthesiologist Dr Shaw on 07-10-2023- patient ok/ no orders received. [Electronically Signed on: 07/10/2023 13:31 EDT] Sabrina Clark RN [Verified on: 07/10/2023 13:31 EDT] Sabrina Clark RNNoZanesville City HospitalMRI PROSTATE W WO CONTRASTon 95-19-5735MBQ PROSTATE W WO CONTRASTEXAMINATION: MULTIPARAMETRIC MRI OF THE PROSTATE WITH AND WITHOUT CONTRAST 07/01/2022: TECHNIQUE: Multiparametric imaging with dynamic contrast enhanced imaging and diffusion weighted imaging was performed. Mobio was utilized in analysis of images. COMPARISON: [...] Signed by: Dylan Branch MD 07/01/22 Final resultNormalMerParkwood Hospital Pathologyon 07-17-2021 Surgical Pathology(NOTE) [id number] [facility] CONSULTING PATHOLOGISTS [facility] ANATOMIC PATHOLOGY [address] [place] [id number] SURGICAL PATHOLOGY CONSULTATION Patient Name: ROCKY MCMANUS MR#: [id number] Specimen #[id number] Procedures/Addenda MOLECULAR PATHOLOGY REPORT Date Ordered: 08/13/2021 Status: Signed Out Date Complete: 08/13/2021 By: César Mendoza D.O. Date Reported: 08/13/2021 INTERPRETATION AT THE REQUEST OF DR. BRADLEY MILLER, BLOCK C1 WAS SENT TO [facility] FOR [place] PROSTATE BIOPSY GENOMIC GRIP WRAPPER TESTING. THE RESULTS ARE FOLLOWS: DECIPHER SCORE: 0.34 GENOMIC RISK IS: LOW RISK OF METASTASIS WITH RT OR RP: 5-YEAR: 0.5% 10-YEAR: 1.3% RISK OF PROSTATE CANCER MORTALITY WITH RT OR RP: 15-YEAR: 2.6% RISK OF ADVERSE PATHOLOGY: AT RP: 16.3% PLEASE SEE [facility]' COMPLETE REPORT FOR DETAILS. César Mendoza D.O. [...] GROUP 1 César Mendoza, Electronically Signed Out 07/19/2021 Clinical Information Pre-op Diagnosis: ELEVATED PSA Operative [...] were seen in intradepartmental consultation (SLS) for supervisor vendor quality purposes.NormalMercy Highline Community Hospital Specialty CenterComment on above: Performed By: #### PPPVS #### [facility] [address] [place] [address] Terra Cotta Roofer: ARI Jerez PROSTATE W WO CONTRASTon 00-10-6192XTU PROSTATE W WO CONTRASTEXAMINATION: MULTIPARAMETRIC MRI OF THE PROSTATE WITH AND WITHOUT CONTRAST 06/21/2021: TECHNIQUE: Multiparametric imaging with dynamic contrast enhanced imaging and diffusion weighted imaging was performed. Mobio was utilized in analysis of images. COMPARISON: [...] Signed by: Dylan Branch MD 06/21/21 Final resultNormalMercy Community Memorial [facility] Vital Signs Date TimeVital SignValuePerforming MoqgfkglsUpytbxrf00-63-6886 11:20-0400 Diastolic blood atbhsqdy76 mm[Hg]JR Dhaval Choe Work Phone: [facility]07-30-2024 11:20-0400 Heart rate50 /minJR Dhaval Choe Work Phone: [facility]07-30-2024 11:20-0400 Respiratory rate16 /minJR Dhaval Choe Work Phone: [phone] [place], [place] 9110607-30-2024 11:20-0400 SaO2% (BldA) [Mass fraction]96 %JR Dhaval Choe Work Phone: [phone] [place], [place] 9110607-30-2024 11:20-0400 Systolic blood bzlmijym415 mm[Hg]JR Dhaval Choe Work Phone: [phone] [place], [place] 9110607-30-2024 10:18-0400 Body hwrsjusbzov83.5 [degF]JR Dhaval Choe Work Phone: [phone] [place], [place] 9110607-30-2024 10:18-0400 Inhaled oxygen flow rate6 L/minJR Dhaval Choe Work Phone: [phone]07-30-2024 08:13-0400 Body mass index (BMI) [Ratio]26.5 kg/m2JR Dhaval Choe Work Phone: [phone] [place], [place] 9110607-30-2024 07:55-0400 Body wqjaou593.8 cmJR Dhaval Choe Work Phone: [phone] [place], [place] 9110607-30-2024 07:55-0400 Body urpqkd57 kgJR Dhaval Choe Work Phone: [phone] [place], [place] 9110607-16-2024 08:47-0400 Body xlfbin927.8 cmMemorial Health [facility] Hospital07-16-2024 08:47-0400Body mass index (BMI) [Ratio]26.8 kg/s4VrampwusmMemorial Health System [facility] Hospital07-16-2024 08:47-0400Body rcecgnfrvez67.3 [degF][facility]07-16-2024 08:47-0400Body gqauem37.82 kgMemorial Health System [facility] Hospital07-16-2024 08:47-0400Diastolic blood mcdndopw77 mm[Hg][facility] 11-04-2023 08:47-0400Heart rate50 /minMemorial Health System [facility] Hospital 11-04-2023 08:47-0400Respiratory rate16 /minMemorial Health System [facility] Hospital 11-04-2023 08:47-4438RwD6% (BldA) [Mass fraction]99 %[facility]07-16-2024 08:47-0400Systolic blood ouuixbfy226 mm[Hg][facility]03-29-2022 14:35-0400Body qsznaldbyzf98 [degF]Bradley Miller MD Work Phone: [facility] HospitalRpykjj58-11-8645 14:35-0400Diastolic blood oylzsrtv05 mm[Hg]Bradley Miller MD Work Phone: [facility] Iluohh52-62-5252 14:35-0400Heart rate54 /min Bradley Miller MD Work Phone: [facility] Ggxohs26-51-6730 14:35-0400Respiratory rate13 /minBradley Miller MD Work Phone: [facility] Rkqnsz18-09-7892 14:35-7361KmB9% (BldA) [Mass fraction]96 %Bradley Miller MD Work Phone: [facility] Cwjrbu33-20-6167 14:35-0400Systolic blood ukvzyqvh992 mm[Hg]Bradley Miller MD Work Phone: [facility] Kuirvz89-93-1950 11:19-0400Body tqerfb546.8 cm Bradley Miller MD Work Phone: [facility] Xdcdoq31-25-2940 11:19-0400Body mass index (BMI) [Ratio]26.83 kg/y9TlktodwBradley Miller MD Work Phone: [facility] [place] [facility] Kxlmlo74-62-8905 11:19-0400Body uqdkfy83.82 kg Bradley Miller MD Work Phone: [facility] Encounters Encounter DateEncounter TypeCare ProviderFacilityStart: 75-59-5051Bjgpjsgued RecurringNorsanjana Key MD-[facility] Acute Work Phone: Start: 12-08-2024 End: 10-42-6576zvvkorjoxjYtzpufp L Valone JR Work Phone: [facility] Work Phone: Start: 12-08-2024 End: 52-93-5019Hbblmav encounter procedureYaima Chang MDChristus [facility] Work Phone: Start: 03-61-3085Ozriiqxjau Marianna Key [facility] Acute Work Phone: Start: 11-15-2024 End: 71-61-6494kwdjjiudejFsybzkl L Valone JR Work Phone: [facility] Work Phone: Start: 11-15-2024 End: 37-06-6918Okcqtjl encounter procedureBrielle Murrell APRIn[facility] Ambulatory Work Phone: Start: 94-65-0326Iizufuwlgm Marianna Key [facility] Acute Work Phone: Start: 10-27-2024 End: 82-91-3310ojvsvrnujmYfpxkaz L Valone JR Work Phone: [facility] Work Phone: Start: 10-27-2024 End: 40-56-2745Cftdwqu encounter procedureYaima Chang [facility] Ambulatory Work Phone: Start: 04-04-3811Exxlviytdb RecurringCharles Valone JR Work Phone: [facility] Acute Work Phone: Start: 07-12-2024 End: 49-51-1370pnevdurefnGjxcnqw L Valone JR Work Phone: [facility] Work Phone: Start: 07-12-2024 End: 01-66-7797Llvxliz encounter procedureCharles Valone JR Work Phone: [facility] Ambulatory Work Phone: Start: 01-13-2024 End: 03-18-9346pysnokoijtMH Dhaval L Valone Work Phone: [phone] Work Phone: Start: 01-13-2024 End: 38-46-0109Gnakwcz encounter procedureJR Dhaval Valone Work Phone: [phone] Ambulatory Work Phone: Start: 26-50-1450Dldmuwkndd RecurringJR Dhaval Valone Work Phone: [facility] Work Phone: Start: 43-09-6960Vin-patient / Non-visitJR Dhaval Valone Work Phone: [facility] Ambulatory Work Phone: Start: 97-98-8207Jwn-patient / Non-visitJR Dhaval Valone Work Phone: [phone] Ambulatory Work Phone: Start: 53-74-6063Xje-patient / Non-visitJR Dhaval Valone Work Phone: [phone] Ambulatory Work Phone: Start: 56-04-3831Uyg-patient / Non-visitJR Dhaval Valone Work Phone: [phone] Ambulatory Work Phone: Start: 11-18-2023 End: 61-17-2772Doqivhfmj to same day surgery centerJR Dhaval Valone Work Phone: [facility] CampusStart: 11-18-2023 End: 12-75-6049gbrgkadumyGX Dhaval L Valone Work Phone: [phone] Work Phone: Start: 11-06-2023 End: 60-04-6779uvidlkmiwgRT Charles L Valone Work Phone: [facility] Work Phone: Start: 11-06-2023 End: 31-13-8282Wwlkyzc encounter procedureJR Dhaval Choe Work Phone: [facility] Kmp-Ltc-Zgfsesia Testing Work Phone: Start: 31-96-9956Yudnkqjuzt RecurringJR Dhaval Choe Work Phone: [facility]-Cancer [facility] Acute Work Phone: Start: 11-04-2023 End: 87-63-7500lrmybswvdiTappzfaskGlenbeigh Hospital Work Phone: Start: 11-04-2023 End: 48-05-5307Mhfkwbo encounter procedureColumbus [facility] Ambulatory Work Phone: Start: 07-31-2023 End: 27-64-4020wrbnmbkwcbLP Dhaval Choe Work Phone: [facility] Work Phone: Start: 07-31-2023 End: 56-62-3890Yoisbzde ReferredJR Dhaval Choe Work Phone: [facility]-LAB Path Spec [facility] HospStart: 07-31-2023 End: 38-71-6025zumunrouzmAswceap J BuckFacility:Anel HospitalStart: 07-01-2022 End: 58-39-1538grfxqdsywuXRMGGSL BUCKKaiser Fresno Medical Center HospitalStart: 05-30-2022 End: 44-08-5671hnwkggjcgvIC DOCTOR MISCFacility:A7Zgizj: 09-24-2021 End: 24-66-9668usvepgvcmtUY DOCTOR MISCFacility:J1Biopq: 07-17-2021 End: 09-61-8848bfflyeajgqFSMTAID [facility] HospitalStart: 07-17-2021 End: 51-80-5528Ihsdykawqs hospital visit by Mercy Miller MD Work Phone: [facility] ORStart: 06-21-2021 End: 60-14-6270rtbplrcvthJHYDMNF BUCKAdena Fayette Medical Center Procedures DateProcedureProcedure DetailPerforming ClinicianStart: 01-83-8974HIN of prostate for radiotherapy planningJR Dhaval Choe Work Phone: Start: 25-00-3640DueepxpeqzPP Dhaval Choe Work Phone: Start: 39-27-3722DTT screeningDR DOCTOR MISCComment on above:Performed By: #### PSAD #### [facility] [address] [place] [address] Dr. Karly LoweStart: 70-76-6299JSW screeningDR DOCTOR MISCComment on above: Performed By: #### PSAD #### [facility] [address] [place] [address] Dr. Karly Lowe Plan of Treatment DateCare ActivityDetailAuthorStart: 22-89-9127Kescugu referralUniversity Hospitals Tripoint [facility] Center Work Phone: Start: 02-43-2122GwshiwvyfMemorial Health [facility] Start: 39-48-8512FxngfcxmpPaulding County Hospitaltart: 29-79-3255Lkdnulmwef measurementCreatinine monitoringMercy Health – The Jewish HospitalStart: 07-17-2021 End: 20-12-4028Ocogeowl needle biopsy any approachPROSTATE BIOPSY DX ELEVATED PSA 07/17/2021 1:22 PM [facility] Hospitaltart: 12-20-2020 Influenza vaccinationFlu vaccine (#1)[facility] HospitalStart: 41-84-5675NQOPS-19 Vaccine (3 - Booster for Moderna series)COVID-19 Vaccine (3 - Booster for Moderna series)[facility] HospitalStart: 69-38-0400Tioczxtzv monitoringPotassium monitoringMercy Health – The Jewish HospitalStart: 89-83-9308Hpqcyihlqhbh 65+ years Vaccine (1 of 1 - PPSV23)Pneumococcal 65+ years Vaccine (1 of 1 - PPSV23)[facility] HospitalStart: 50-33-7566Terexttq Vaccine (1 of 2)Shingles Vaccine (1 of 2)[facility]: 00-63-5775Yuisirbpg for malignant neoplasm of colonWright-Patterson Medical Center: 1969 DTaP/Tdap/Td vaccine (1 - Tdap)DTaP/Tdap/Td vaccine (1 - Tdap)[facility]: 75-24-3997Ejzitnfzom ScreenDepression ScreenWright-[facility]terson Medical Center: 54-89-4896Ujeeo panelLipid screenWright-Patterson Medical Center: 72-52-6857Pblpvssxp C screeningHepatitis C [facility] End: 85-28-1466Qyjst glucose - POCTBlood glucose - POCT Point of Care Testing Routine One Time for 1 Occurrences starting 07/18/2021 until 07/18/2021[facility] Phone: comment on above:One Time for 1 Occurrences starting 07/18/2021 until 07/18/2021omputed tomography for radiotherapy planning [facility] HospitalContinuous pulse oximetryPulse oximetry, continuous Respiratory Care Routine Every 4hr until discontinued starting 07/18/2021[facility] Phone: Comment on above:Every 4hr until discontinued starting 07/18/2021MR Prostate WO and W contrast [facility] Patient EducationFiducial Markers (DC) Know your [facility] Work Phone: Patient [facility] Work Phone: Surgical PathologySurgical Pathology Lab Routine Release Upon Ordering for 1 Occurrences starting 07/17/2021[facility] Phone: Comment on above:Release Upon Ordering for 1 Occurrences starting 07/17/2021urgical PathologySurgical Pathology Lab Routine Release Upon Ordering for 1 Occurrences starting 07/17/2021[facility] [employer] Phone: comdmno on above:Release Upon Ordering for 1 Occurrences starting 07/17/2021 End: 03-26-0536JUDFISXG PATHOLOGY REPORTSURGICAL PATHOLOGY REPORT Lab Routine Once for 1 Occurrences starting 07/17/2021 until 07/17/2021[facility] Phone: comjvhl on above:Once for 1 Occurrences starting 07/17/2021 until 07/17/2021 End: 15-69-0435Dcgxj , POCTUrine , POCT Point of Care Testing Routine One Time for 1 Occurrences starting 07/18/2021 until 07/18/2021[facility] [employer] Work Phone: comment on above:One Time for 1 Occurrences starting 07/18/2021 until 07/18/2021[facility] Immunizations Immunization DateImmunizationNotesCare YyowgzggTevuxsqp71-20-3754RPVVL-18, Moderna, Primary or Immunocompromised, PF, 100mcg/0.5mLBradley Miller MD Work Phone: [facility] [employer] Work Phone: [phone]-65, Moderna, Primary or Immunocompromised, PF, 100mcg/0.5mLBradley Miller MD Work Phone: [place] [address]Cwiejf68-82-8665XNKWK-71 mRNA-6513 (Moderna)JR Dhaval Choe Work Phone: [facility] Payers DatePayer CategoryPayerPolicy [id number]-zgd [id number] Health [id number] [id number] 2..1.784823.3.57[id number] ..1.270211.3.57[id number] 2..1.819424.3.57[id number] 2..1.375249.3.57[id number] 2..840.1.390492.3.57[id number] 2..840.1.650571.3.579.2.718UnknownHCAP/HFA/FAP [id number] [id number] 2..840.1.798435.3.579.2.531 Social History DateTypeDetailFacilityStart: 07-17-2021 End: 63-19-0910Qjlxcdt smoking status NHISNever smoked tobaccoRegency Hospital [facility] WestBriabe Mobile Work Phone: start: 76-35-8600Uthmvgp use and exposureSmokeless tobacco non-userRegency Hospital [facility] WestBriabe Mobile Work Phone: start: 87-35-6618Ztnbgio intakeCurrent drinker of alcohol (finding)[facility] [employer] Work Phone: start: 56-71-8899Dyvtbso SDOH Alcohol Commentdaily 3-4 beers a dayRegency Hospital [facility] WestSaint [facility] Phone: start: 19-53-8077Gtl Assigned At BirthNot on fileRegency Hospital Cleveland WestBriabe Mobile Work Phone: start: 07-07-2021 End: 49-17-7121Dehoahfw to SARS-CoV-2 (event)Not sureRegency Hospital Cleveland WestBriabe Mobile Work Phone: start: 78-75-0803Gqr Assigned At BirthSelect Medical Specialty Hospital - Cantontart: 54-81-2543QcjCdsq (finding)[facility] Medical Equipment Procedure CodeEquipment CodeEquipment Original TextEquipment IdentifierDates Cystoscopy with insertion of fiducial markers and hydrogel rectal spacerBARRIGEL PROC KITFDAStart: 88-68-4158Mofydtuekf with insertion of fiducial markers and hydrogel rectal spacerImaging lesion localization marker, implantable [id number] FDAStart: 66-87-5561Xfjjktdoik with insertion of fiducial markers and hydrogel rectal spacerBARRIGEL PROC KITFDA Start: 01-52-8515Rqaeovysso with insertion of fiducial markers and hydrogel rectal spacerBARRIGEL PROC KITFDAStart: 00-25-8613Okbbssgpny with insertion of fiducial markers and hydrogel rectal spacerBARRIGEL PROC KITFDAStart: 11-18-2023 Cystoscopy with insertion of fiducial markers and hydrogel rectal spacerBARRIGEL PROC KITFDAStart: 11-18-2023 Goals DatePatient GoalDesired Activity/State Clinical Notes 07-17-2021 to 12-08-2024 Note Date & BtsmCsadZugcsacm50-56-8605 Progress note Author Yaima Chang [facility] HospitalNote Date/TimeAugust 2024 12:[address] [place] [address] [place] [address] Genetics Follow Up Note Signed Patient: Rocky Mcmanus MR#: [id number] : 1950 Acct:[id number] Age/Sex: 74 / M Type: REG AMB Date of Service: 12/08/24 Copies to: MD Dhaval Fitzpatrick Jr, DO [place] MD~ Genetics Follow Up Rocky Mcmanus is a 74 yo male referred due to his diagnosis of prostate cancer and family history of cancer to discuss genetic testing options. Mr. Mcmanus was initially seen in the [facility] 10/27/24 for counseling and coordination of genetic testing. Based on his personal and family history of cancer, the 40 gene [facility] BRCA1/2 analyses with CancerNext +[employer] Activ[employer] panel from was ordered. He was seen [...] Evaluation and Screening Study (PROGRESS) ClinicalTrials.gov ID [id number] Sponsor [facility] Information provided by Marciano Schmitt MD, PhD, [facility] (Responsible Green Party) Study Contact Name: Vera Carpenter Email: Plan: - test report provided - Our understanding of genetic contribution to cancer diagnoses is always evolving, so there may beadditional testing recommended in the future. He can contact us in 3 years to determine if there have been any changes since our discussion today. - genetic testing for cancer affected family member's available - Mr. Mcmanus' Children should discuss the family history with their physicians to develop a screening plan. Breast cancer screen should start 10 years before the earliest diagnosis. Prostate cancer screening to start at 40. -Research option for Mr. Mcmanus' children and nephews as above Sincerely, Yaima Chang MD Clinical commercial banker [facility] [phone] Total time 35 min Prep 10 min face to face 15min Documentation 15 Clinic Data REASON FOR VISIT Visit Reasons: 1 month f/u Dictated By: Yaima Chang MD DD/ 1224 Signed By: <Electronically signed by Yaima Chang MD> 12/08/24 1232 [facility] Work Phone: [phone] 216-904908-20-2025 Progress noteUnCHRISTUS Sp[facility] [place] [id number] Genetics Follow Up Note Signed Patient: Rocky Mcmanus MR#: [id number] : 1950 Acct:[id number] Age/Sex: 74 / M Type: REG AMB Date of Service: 12/08/24 Copies to: MD Dhaval Fitzpatrick Jr, DO [place] MD~ Genetics Follow Up Rocky Mcmanus is a 74 yo male referred due to his diagnosis of prostate cancer and family history of cancer to discuss genetic testing options. Mr. Mcmanus was initially seen in the [facility] 10/27/24 for counseling and coordination of genetic testing. Based on his personal and family history of cancer, the 40 gene [facility] BRCA1/2 analyses with [employer] +i[employer]ulfillment panel from was ordered. He was seen [...] Evaluation and Screening Study (PROGRESS) ClinicalTrials.gov ID [id number] Sponsor [facility] Information provided by Marciano Schmitt MD, PhD, [facility] (Responsible Green Party) Study Contact Name: Vera Carpenter Email: Plan: - test report provided - Our understanding of genetic contribution to cancer diagnoses is always evolving, so there may beadditional testing recommended in the future. He can contact us in 3 years to determine if there have been any changes since our discussion today. - genetic testing for cancer affected family member's available - Mr. Mcmanus' Children should discuss the family history with their physicians to develop a screening plan. Breast cancer screen should start 10 years before the earliest diagnosis. Prostate cancer screening to start at 40. -Research option for Mr. Garcia children and nephews as above Sincerely, Yaima Chang MD Clinical commercial banker [facility] [phone] Total time 35 min Prep 10 min face to face 15min Documentation 15 Clinic Data REASON FOR VISIT Visit Reasons: 1 month f/u Dictated By: Yaima Chang MD DD/ 1224 Signed By: 12/08/24 1232 [facility]07-28-2025 Evaluation note* Diagnosis Onset Date Resolution Status Admit Date Prostate cancer acuteJuly 2024 9:14am [facility] Work Phone: [phone] 774-814307-30-[address] [facility]04-16-2024 [id number]#1.00[facility]04-12-2024 [id number]#1.00[facility]04-11-2024 [facility] SURGERY Clinical Discharge Summary PERSON INFORMATION Name ROCKY MCMANUS Age 73 Years 1950 Sex MALE Language Prydeinig PCP DHAVAL CHOE JR. Marital Status Med Service Ambulatory Surgery Acct# Arrival 07/31/2023 08:25:45 Visit Reason SURGERY - FUSION PROSTATE BIOPSY Acuity LOS 071 05:02 Address: [address] [place] [address] [place] [address] Comment: PROVIDER INFORMATION VITALS INFORMATION Vital Sign [...] (scheduled). Comment: Lab and (more content not included)...CentervilleNffxucrq95-90-7028 Hospital Discharge instructions* Instructions* Bradley Miller MD [...] sent through Care Everywhere. * Prostate Biopsy (Prydeinig) documented in this [facility] Work Phone: evaluation noteNo assessment information available [facility] Work Phone: Evaluation note* Diagnosis Onset Date Resolution Status Prostate cancer acute [facility] Work Phone: Evaluation note* Diagnosis Onset Date Resolution Status Prostate cancer acuteProstate canceracute [facility] Work Phone: Evaluation note* Diagnosis Onset Date Resolution Status Admit Date Prostate cancer acuteMarch 2024 10:45am [facility] Work Phone: Evaluation note* Diagnosis Onset Date Resolution Status Admit Date Prostate cancer acuteJuly 2024 9:14am [facility] Work Phone: Hospital Discharge instructions Additional Instructions Patient has follow-up in radiation oncology this November 19 for planning scans. He and his are aware of the appointment.[facility] Work Phone: Progress note Author [place] [facility] November 04, 2023 9:50amNote Date/TimeJuly 2023 8:53[facility] [place] [address] Cancer Center Note Signed Patient: Rocky Mcmanus MR#: [id number] : 1950 Acct:[id number] Age/Sex: 73 / M Type: REG AMB [...] group 1 disease in 2 cores of gradegroup 2 disease for total of 4 out of 13. Decipher returned 0.77 high risk and patient is been referred to discuss definitive radiation. Patient understands that options for treatment include surgeryor radiation. He has met with urology and [...] in detail and his questions were answered. Hewas consented to receive care. Based on the [...] lesion 1.4 cm in the righttransition zone. Noextraprostatic extension. Lesion was unchanged. Volume estimated 37 mL. Fusion biopsy showed 3 areas of [place] 6 and 1 area of Kaci 3+4 = 7 disease. Decipher testing returned low risk with 1.2% risk of metastatic disease in 10 years. Patient placed on active surveillance. July 2022 PSA increased to 4.89--> MRI showed stable 1.4 cm transitional zone from the right. October 2022 PSA 3.September PSA 3.82 August 01, 2023 repeat TRUS biopsy confirms [place] 3+3=6 disease in 2 cores withGleason 3+4 = 7 disease in 2 cores, largest with 30% pattern 4 involving 10% of the biopsy volume in the area of interest . Total of 4 of 13 cores positive Repeat Decipher returned high risk 0.77 Today patient is accompanied by his . They live in [place]. IPSS is 9 with urgency about half [...] appointment from Dr Miller for prostate cancer [facility] Medical History Medical History (Updated 11/03/23 @ [...] way.: 1 - Less than 1 time in5 Frequency - I have to go again [...] et al, and the Measurement Committeeof the [place] [employer]. The [place] [employer] symptom index for benign prostatic hyperplasia. J Urol. 1992; 148: 5146-5967. Copyright 1992 [place] [employer] MEE Score Over the past [...] 14 Dictated By: [place] MD DD/ Signed By: <Electronically signed by [place] MD> 11/04/23 0950 [facility] Work Phone: Progress note Author [place] [facility] January 13, 2024 11:41amNote Date/TimeSeptember 2023 11:29[facility] [place] [address] Cancer Center Note Signed Patient: Rocky Mcmanus MR#: [id number] : 1950 Acct:[id number] Age/Sex: 73 / M Type: REG AMB [...] group 1 disease in 2 cores of gradegroup 2 disease for total of 4 out of 13. Decipher returned 0.77 high risk and patient is been referred to discuss definitive radiation. Patient understands that options for treatment include surgeryor radiation. December 17, 2023 patient completed SBRT [...] and bowels have returned to baseline. IPSS islower than consult and patient was counseled he [...] lesion 1.4 cm in the righttransition zone. Noextraprostatic extension. Lesion was unchanged. Volume estimated 37 mL. Fusion biopsy showed 3 areas of [place] 6 and 1 area of Kaci 3+4 = 7 disease. Decipher testing returned low risk with 1.2% risk of metastatic disease in 10 years. Patient placed on active surveillance. July 2022 PSA increased to 4.89--> MRI showed stable 1.4 cm transitional zone from the right. October 2022 PSA 3.September PSA 3.82 August 01, 2023 repeat TRUS biopsy confirms [place] 3+3=6 disease in 2 cores withGleason 3+4 [...] way.: 1 - Less than 1 time in5 Frequency - I have to go again [...] Pleased Source: Mario HIGGINS, Cole KHOURY Jr, O'Agu[place] MP, et al, and the Measurement Committeeof the [place] [employer]. The [place] [employer] symptom index for benign prostatic hyperplasia. J Urol. 1992; 148: 8145-2293. Copyright 1992 [place] [employer] Over the past six months [...] signed by [place] MD> 01/13/24 1141 [facility] Work Phone: Revokg for referral (narrative)No reason for referral information availableUniversity Hospitals Tripoint Medical Center Work Phone: Reuzwp for visit Narrative* Auth/CertSpecialty Diagnoses / ProceduresReferred By ContactReferred To Contact Diagnoses Elevated PSA DX ELEVATED PSA Procedures IA BIOPSY OF PROSTATE,NEEDLE/PUNCH FUSION BIOPSY PROSTATE URO CARRIE- (MRI ST V'S 06/21) Bradley Farias MD [address] [place] [address] [address] [place] [address] Referral IDStatusReasonStart DateExpiration DateVisits RequestedVisits [id number] [employer] Phone: Summary Purpose Family History No Family History Records Found Relationship Condition Age at Onset Recorded Date/T inocencio brother Malignant neoplasm Unknown Relationship Condition Age at Onset Recorded Date/T inocencio brother Malignant neoplasm Unknown sisterMalignant neoplasm of breastUnknownmotherChronic obstructive pulmonary diseaseUnknownDeceasedUnknownfatherMalignant neoplasm of lungUnknown Advance Directives No Advanced Directives Records FoundDocuments on File TypeDate RecordedPatient RepresentativeExplanationACP-Power of Double Needle Stitcher Advance Directive Response Recorded Date/ Time Advance [...] Prostate Cancer Prostate Cancer Follow Up, 1 MonthReason for VisitProstate cancer Prostate cancer Chief Complaint New Patient Prostate cancer Prostate Cancer Prostate Cancer Prostate Cancer Prostate CancerReason for VisitProstate cancer Chief Complaint New Patient Prostate cancer Prostate Cancer Prostate CancerReason for VisitProstate cancer Chief Complaint New Patient Prostate cancer Reason for Visit Prostate cancer Additional Source Comments (unrecognized sect ion and content) No Status Records FoundNo Status Records FoundNo Status Records FoundNo Status Records FoundNo Status Records FoundNo Status Records Found INFORMATION SOURCE (unrecogn ized section and content) DATE CREATED AUTHOR 06/24/2021 [facility] DATE CREATED AUTHOR AUTHOR'S ORGANIZ ATION 08/15/2021 [facility] DATE CREATED AUTHOR AUTHOR'S ORGANIZ ATION 06/03/2022 [facility] DATE CREATED AUTHOR AUTHOR'S ORGANIZ ATION 07/05/2022 [facility] DATE CREATED AUTHOR AUTHOR'S ORGANIZ ATION 07/08/2024 [place] DATE CREATED AUTHOR AUTHOR'S ORGANIZ ATION 12/10/2024 [facility] [facility] Scheduled Active and Recently Administ ered Medications (unrecognized section and content) Medication Order// ceFAZolin (ANCEF) 2000 mg in dextrose 5 % 50 mL IVPB (COMPLETED) 2,000 mg, IntraVENous, ONCE, 1 dose, On Fri07/17/21 at 1300, Antimicrobial Indications: Surgical Prophylaxis, Pre-op (day of surgery), STAT * 1322 (Given - Provider: Weston Blakely APRN - BILL COLLECTOR) Medication Order/ lactated ringers infusion IntraVENous, at 50 mL/hr, CONTINUOUS, Starting on Fri07/18/21 at 0000, Substitute normal saline forpatients with renal insufficiency/failure, Pre-op (day of surgery) * 1143 (New Bag - Provider: Sujata Dangelo RN) * 1322 (NoRateChange - Provider: ALEX Nguyen CRNA) * 1357 (Paused - Provider: ALEX Nguyen CRNA - Comment: Switch to gravity) * 1358 (Restarted - Provider: ALEX Nguyen CRNA) Medication Order// lidocaine PF 1 % injection 1 mL 1 mL, IntraDERmal, ONCE PRN, 1 dose, Starting on Fri07/18/21 at 0000, Until Fri07/18/21 at 2359, IVstart, Pre-op (day of surgery) Care Teams (unrecognized sec tion and content) Team MemberRelationshipSpecialtyStart DateEnd Date Dhaval Choe DO [address] [place] [id number] PCP - General05/08/12 Team Status: Active Member Role Status Dates Dhaval Choe JR DO Primary Care Provider Active Team Status: Inactive Member Role Status Franklin Choe JR DO Primary Care Provider Active Start: July 31, 2023 End: July 30Glenna Valentine ProviderActiveStart: July 31, 2023 End: July 31, 2023 Team Status: Inactive Member Role Status Franklin Choe JR DO Primary Care Provider Active Start: November 04, 2023 End: November 04, 2023Glenna Zhou ProviderActiveStart: November 04, 2023 End: November 03Maggie Valentineing ProviderActiveStart: November 04, 2023 End: November 04, 2023 Team Status: Active Member Role Status Dates Dhaval Choe JR DO Primary Care Provider Active Start: November 06, 2023 Glenna Zhou ProviderActiveStart: November 06, 2023 Lucio Miller , MDReferring ProviderActiveStart: November 06, 2023 Team Status: Inactive Member Role Status Dates Dhaval Choe JR DO Primary Care Provider Active Start: November 06, 2023 End: November 06, 2023Norleena R Shahid , MDAttending ProviderActiveStart: November 06, 2023 End: November 06, 2023 Team Status: Inactive Member Role Status Dates Dhaval Choe JR DO Primary Care Provider Active Start: November 18, 2023 End: November 18, 2023Norleena R Shahid , MDAttending ProviderActiveStart: November 18, 2023 End: November 18, 2023 Team Status: Active Member Role Status Dates Dhaval Choe JR DO Primary Care Provider Active Start: November 18, 2023 Norsanjana Smithynter , MDAttending Provider, Other ProviderActiveStart: November 18, 2023 Team Status: Active Member Role Status Dates Dhaval Choe JR DO Primary Care Provider Active Start: November 20, 2023 Norsanjana R Shahid , MDAttending Provider, Other ProviderActiveStart: November 20, 2023 daniel Miller , MDReferring ProviderActiveStart: November 20, 2023 Team Status: Active Member Role Status Dates Dhvaal Choe JR DO Primary Care Provider Active Start: December 05, 2023 Norleena R Shahid , MDAttending Provider, Other ProviderActiveStart: December 05, 2023 Bradley Miller , MDReferring ProviderActiveStart: December 05, 2023 Team Status: Active Member Role Status Dates Dhaval Choe JR DO Primary Care Provider Active Start: December 08, 2023 Norleena R Shahid , MDAttending Provider, Other ProviderActiveStart: December 08, 2023 Bradley Miller , MDReferring ProviderActiveStart: December 08, 2023 Team Status: Active Member Role Status Dates Dhaval Choe JR DO Primary Care Provider Active Start: December 17, 2023 Norleemily R Shahid , MDAttending ProviderActiveStart: December 17, 2023 daniel Miller , MDReferring ProviderActiveStart: December 17, 2023 Team Status: Inactive Member Role Status Dates Dhaval L Valone , JR DO Primary Care Provider Active Start: January 13, 2024 End: January 13, 2024Norleena R Shahid , MDAttending ProviderActiveStart: January 13, 2024 End: January 13, 2024 Team Status: Inactive Member Role Status Dates Dhaval Choe JR DO Primary Care Provider Active Start: July 12, 2024 End: July 12, 2024Norleena R Shahid , MDAttending ProviderActiveStart: July 12, 2024 End: July 12, 2024 Team Status: Active Member Role Status Dates Dhaval Choe JR DO Primary Care Provider Active Start: July 12, 2024 Norsanjana R Shahid , MDAttending ProviderActiveStart: July 12, 2024 Bradley Miller , MDReferring ProviderActiveStart: July 12, 2024 Team Status: Inactive Member Role Status Dates Dhaval Choe JR DO Primary Care Provider Active Start: October 27, 2024 End: October 27catherine Chang , MDAttending ProviderActiveStart: October 27, 2024 End: October 27, 2024Norleena R Shahid , MDReferring ProviderActiveStart: October 27, 2024 End: October 27, 2024 Team Status: Active Member Role Status Dates Dhaval Choe JR DO Primary Care Provider Active Start: October 27, 2024 Norleemily R Shahid , MDAttending ProviderActiveStart: October 27, 2024 Bradley Miller , MDReferring ProviderActiveStart: October 27, 2024 Team Status: Inactive Member Role Status Dates Dhaval Choe JR DO Primary Care Provider Active Start: November 15, 2024 End: November 15, 2024Brielle Murrell , APRNAttending ProviderActiveStart: November 15, 2024 End: November 15, 2024 Team Status: Active Member Role Status Dates Dhaval Choe JR DO Primary Care Provider Active Start: November 15, 2024 Pretty R Shahid , MDAttending ProviderActiveStart: November 15, 2024 Bradley Miller , MDReferring ProviderActiveStart: November 15, 2024 Team Status: Inactive Member Role Status Dates Dhaval Choe JR DO Primary Care Provider Active Start: December 08, 2024 End: December 08catherine Bernardo , MDAttending ProviderActiveStart: December 08, 2024 End: December 08, 2024 Team Status: Active Member Role Status Dates Dhaval Calvert JR Дмитрий DO Primary Care Provider Active Start: December 08, 2024 Pretty Andrews Shahid , MDAttending ProviderActiveStart: December 08, 2024 Lucio Paul , MDReferring ProviderActiveStart: December 08, 2024 Goals (unrecognized section and [...] BE BASED ON THE PRIMARY CLINICAL RECORDS. [employer] provides no warranty or guarantee of the accuracy or completeness of information in this document.
[2025-03-09 09:54] LABS: Prostate Specific Antigen Dx <0.13 ng/mL (<=4.00)
== END 2025-03-09 08:15 | disposition home or self-care (01) ==
LOC: LAB 08:15
PROVIDERS: PCP Internal Medicine; Visit Provider Nurse Practitioner Gerontology
DX: C61 Malignant neoplasm of prostate (principal)
CPT/HCPCS: 36415; 84153; 84403